=== PATIENT | female | born 1965 | race Caucasian/White ===

== ENCOUNTER 2020-11-28 15:54 | Outpatient (REF) | payer MEDICARE, MEDICAID, SELFPAY ==
[2020-11-28 16:29] LABS: MANUAL DIFF FLAG NO
[2020-11-28 16:31] LABS: Basophils Absolute Auto 0.1 X10*3/uL (0.0-0.2); Basophils Percent Auto 0.9 % (0-2); Eosinophils Absolute Auto 0.3 X10*3/uL (0.0-0.4); Eosinophils Percent Auto 2.7 % (0-4); Hematocrit 44.3 % (37-47); Hemoglobin 14.8 g/dl (12.0-16.0); Imm Gran Abs Auto 0.04 X10*3/uL (0.00-0.03); Imm Gran Pct Auto 0.4 % (0.0-0.4); Lymphocytes Absolute Auto 2.5 X10*3/uL (1.2-4.9); Lymphocytes Percent Auto 26.8 % (20-40); Mean Corpuscular HGB Conc 33.4 g/dl (31.0-35.0); Mean Corpuscular Volume 92.9 fL (80-98); Mean Platelet Volume 10.3 fL (9.4-12.3); Monocytes Absolute Auto 0.8 X10*3/uL (0.1-1.2); Monocytes Percent Auto 8.2 % (2-11); Neutrophils Absolute Auto 5.7 X10*3/uL (2.0-8.3); Platelet Count 255 X10*3/uL (160-400); Red Blood Count 4.77 X10*6/uL (4.20-5.50); Red Cell Distribution Width 13.3 % (11.0-16.0); White Blood Count 9.3 X10*3/uL (4.8-10.8)
[2020-11-28 17:20] LABS: Erythrocyte Sedimentation Rate 10 MM/HR (0-20)
[2020-11-29 23:26] LABS: Anti Nuclear Antibody Screen POSITIVE (NEGATIVE)
[2020-12-01 04:17] LABS: Cardiolipin IgG Ab <14 GPL; Cardiolipin IgM Ab 18 MPL
== END 2020-11-28 15:55 | disposition home or self-care (01) ==
LOC: HO.LAB 15:54
PROVIDERS: PCP Pediatrics; Visit Provider Psychiatry & Neurology Neurology
DX: G43.709 Chronic migraine without aura, not intractable, without status migrainosus (principal)
CPT/HCPCS: 36415; 85025; 85652; 86038; 86039; 86147

== ENCOUNTER 2021-06-12 12:57 | Outpatient (REF) | payer MEDICARE, MEDICAID, SELFPAY ==
--- NOTE | ~2021-06-12 | MR_ITS ---
EXAMINATION: MR BRAIN WITHOUT AND WITH CONTRAST CLINICAL INFORMATION: Memory loss with falls. Worsening symptoms. COMPARISON: MRI dated 01/14/2017. TECHNIQUE: Multiplanar, multisequence imaging of the brain was performed before and after the intravenous administration of 7 mL of Gadavist. FINDINGS: No diffusion abnormalities are identified to suggest an acute infarct. The ventricles are normal in size. No mass effect or midline shift is seen. Minimal scattered subcentimeter foci of T2 hyperintense signal change in the cerebral white matter are stable. No extra-axial fluid collections are seen. The brainstem and cerebellum are normal. On postcontrast imaging, there is no abnormal parenchymal or leptomeningeal enhancement. The craniovertebral junction, marrow signal, and midline structures are normal. The major intracranial flow voids at the level of the [place] of [place] are preserved. 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 The dural venous sinus flow voids are maintained. The mastoid air cells and paranasal sinuses are well aerated. MR/MR head/brain wo/w con IMPRESSION: No acute process. Stable minimal white matter signal changes. No abnormal enhancement.
--- NOTE | ~2021-06-12 | XR_ITS ---
EXAMINATION: X-RAY PRE-MRI SCREENING CLINICAL INFORMATION: Question retained leads of implant prior to MRI COMPARISON: Lumbar spine x-ray October 2017 TECHNIQUE: Supine view of the abdomen and pelvis FINDINGS: No retained leads in the abdomen or pelvis are seen. There are surgical clips in the right upper quadrant and in the pelvis that appear unchanged from lumbar spine x-ray October 2017. The bowel gas pattern is normal. There is no free air. There are no calcifications. There are degenerative changes at the hip joints. XR/XR pre mri screening IMPRESSION: No lead is seen in the abdomen or pelvis.
--- NOTE | ~2021-06-12 | MR_ITS ---
EXAMINATION: MR CERVICAL SPINE WITHOUT AND WITH CONTRAST CLINICAL INFORMATION: MS. COMPARISON: Cervical spine MRI 11/06/2009. TECHNIQUE: MRI of the cervical spine was performed with routine sequences without and with intravenous contrast. A total of 7 ml of Gadavist was intravenously administered. FINDINGS: Allowing for motion artifact the cervical cord signal appears normal. No definite demyelinating plaques are seen. The upper thoracic cord signal appears normal. There is no abnormal intrathecal enhancement. The cervical vertebral bodies maintain normal heights and alignment. There is no significant disc height loss. At C5-C6 there is mild left neural foraminal stenosis related to uncovertebral hypertrophy. At C6-C7 there is disc bulging with broad-based left foraminal protrusion resulting in progressive severe left-sided neural foraminal stenosis and mild spinal canal stenosis with flattening of the left ventral cord. The remainder of the cervical levels are within normal limits. No acute intracranial abnormality is seen. The extraspinal soft tissues appear normal. MR/MR cervical spine wo/w con IMPRESSION: No definite demyelinating plaques identified within the cervical or upper thoracic cord. No abnormal enhancement. At C5-C6 there is mild left neural foraminal stenosis. At C6-C7 there is severe left-sided neural foraminal stenosis and mild spinal canal stenosis.
== END 2021-06-12 12:58 | disposition home or self-care (01) ==
LOC: HO.MRI 12:57
PROVIDERS: PCP Pediatrics; Visit Provider Psychiatry & Neurology Neurology
DX: G35 Multiple sclerosis (principal)
CPT/HCPCS: 70553; 72156

== ENCOUNTER 2022-09-09 13:56 | Outpatient (REF) | payer MEDICARE, MEDICAID, SELFPAY ==
[2022-09-09 14:07] LABS: MANUAL DIFF FLAG NO
[2022-09-09 14:16] LABS: Basophils Absolute Auto 0.1 X10*3/uL (0.0-0.2); Basophils Percent Auto 0.8 % (0-2); Eosinophils Absolute Auto 0.3 X10*3/uL (0.0-0.4); Eosinophils Percent Auto 2.4 % (0-4); Hematocrit 43.7 % (37.0-47.0); Hemoglobin 14.5 g/dl (12.0-16.0); Imm Gran Abs Auto 0.03 X10*3/uL (0.00-0.03); Imm Gran Pct Auto 0.3 % (0.0-0.4); Lymphocytes Absolute Auto 2.7 X10*3/uL (1.2-4.9); Lymphocytes Percent Auto 25.8 % (20-40); Mean Corpuscular HGB Conc 33.2 g/dl (31.0-35.0); Mean Corpuscular Hemoglobin 30.7 pg (27.0-33.0); Mean Corpuscular Volume 92.6 fL (80.0-98.0); Mean Platelet Volume 10.2 fL (9.4-12.3); Monocytes Percent Auto 9.3 % (2-11); Neutrophils Absolute Auto 6.5 x10*3/uL (2.0-8.3); Neutrophils Percent Auto 61.4 % (45-73); Platelet Count 270 X10*3/uL (160-400); Red Blood Count 4.72 X10*6/uL (4.20-5.50); Red Cell Distribution Width 13.4 % (11.0-16.0); White Blood Count 10.6 X10*3/uL (4.8-10.8)
== END 2022-09-09 13:57 | disposition home or self-care (01) ==
LOC: HO.LAB 13:56
PROVIDERS: PCP Pediatrics; Visit Provider Psychiatry & Neurology Neurology
DX: G43.709 Chronic migraine without aura, not intractable, without status migrainosus (principal)
CPT/HCPCS: 36415; 85025

== ENCOUNTER 2024-10-22 12:48 | Outpatient (REF) | payer MEDICARE, MEDICAID, SELFPAY ==
--- NOTE | ~2024-10-22 | XR_ITS ---
EXAMINATION: XR BILATERAL HIPS WITH AP PELVIS CLINICAL INFORMATION: M25.559 - Pain in unspecified hip COMPARISON: None available. TECHNIQUE: AP and frog-leg lateral views of each hip were obtained. FINDINGS: Left Hip: No fracture or dislocation. Normal alignment. No bone lesion. Moderate degenerative arthritis of the left hip joint is present, with overriding acetabulum superiorly and posteriorly. There is axial and inferior joint space loss, with small subcapital osteophytes. Mild subchondral sclerosis of the acetabulum with subtle cystic changes. Femoral head is normal in contour without evidence of AVN. Mild enthesopathy of the greater trochanter. Right Hip: No fracture or dislocation. Normal alignment. No bone lesion. Moderate degenerative arthritis of the left hip joint is present, with overriding acetabulum superiorly and posteriorly. There is axial and inferior joint space loss, with small subcapital osteophytes. Mild subchondral sclerosis of the acetabulum with subtle cystic changes. Femoral head is normal in contour without evidence of AVN. Mild enthesopathy of the greater trochanter. Pelvis: There are mild degenerative changes in both SI joints. The pelvis is intact. No bone lesion. There are gluteal insertional enthesophytes. There are surgical clips in the central pelvis and overlying the L5-S1 facet joint. XR/XR hip YVETTE min 3V IMPRESSION: 1. No acute bony abnormalities. 2. 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 Electronically signed by: Miguel Burrell MD 10/26/2024 10:01 AM MALINI
--- OUTSIDE RECORDS SUMMARY | 2024-10-22 14:29 | XMS_ITS | Clinical Summary ---
Author Organization [facility] Address [phone] Formerly [facility] [place] [address] Care Team Providers Care Medical Center Director Name Role Phone Murray Livingston MD Primary [...] 11:33 AM EDT) HCV Ab Nonreactive Nonreactive [facility] Comment: (NOTE) Test performed by: ?[facility] ?[id number] [facility] ?[place] [address] Director: Amol Rockwell M.D., Ph.D.,Director of Laboratories SIGNAL TO CUT OFF 0.00 <1.00 ratio [facility] Comment: (NOTE) HCV antibody was Nonreactive. There is no laboratory evidence of HCV infection. In most cases, no further action is required. However, if recent HCV exposure is suspected, a test for HCV RNA (test code 12765) is suggested. For additional information please refer to http://education.NormOxys/faq/JHC55i8 (This link is being provided for informational/ educational purposes only.) Test performed by: ?[facility] ?[id number] [employer] ?[place], [place] Director: Amol Rockwell M.D., Ph.D.,Director of Laboratories Additional Testing Not indicated [facility] Comment: (NOTE) Test performed by: ?[facility] ?[id number] [facility] [employer] ?[place], [place] Director: Amol Rockwell M.D., Ph.D.,Director of Laboratories 07/02/2018 11:3 3 AM EDT 07/02/2018 12:34 PM EDT Gustavo Rivera MD LAB BLOOD ORDERABLES Performing Organization Address [facility] Co de Phone Number [address] * Hepatitis B surface antigen (07/02/2018 11:33 AM EDT) HBV Surface Ag Nonreactive Nonreactive [facility] Comment: (NOTE) Test performed by: ?[facility] ?[id number] [employer] ?[place], [place] Director: Amol Rockwell M.D., Ph.D.,Director of Laboratories CONFIRMATION REPORT SEE COMMENT [facility] Comment: (NOTE) Not required according to the current package insert. Test performed by: ?[facility] ?[id number] [employer] ?[place], [place] Director: Amol Rockwell M.D., Ph.D.,Director of Laboratories 07/02/2018 11:3 3 AM EDT 07/02/2018 12:34 PM EDT Gustavo Rivera MD LAB BLOOD ORDERABLES Performing Organization Address City/[facility]/ZIP Co de Phone Number [facility] [address] [place] [address], [facility] from Last 3 Months or Most Recently Relevant to Health Maintenance Care Teams Medical Center Director Relationship Specialty Start Date End Date Murray Livingston MD [address] [place] [address] PCP - General Internal Medicine 04/21/18 Additional Source Comments The information contained in this document represents components of the legal health record. It is not the complete legal health record.[facility]
--- OUTSIDE RECORDS SUMMARY | 2024-10-22 14:29 | XMS_ITS | Referral Summary ---
Author Organization [facility] Address [address] [id number] Care Team Providers Care Turning Machine Set Up Operator Name Role Phone Murray Livingston Primary Care Provider [phone] Encounters Date Type Department Care Team Description 10/08/[address] [address] Felix Prakash MD 09/27/2024 1:40 PM EST Office Visit 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); Lumbar radiculopathy 09/07/[address] [address] Felix Prakash MD 09/07/2024 1:15 PM EST Follow-Up [facility] [address] [address] Felix Prakash MD PVD (posterior vitreous detachment), bilateral (Primary Dx); Sjogren's syndrome with keratoconjunctivitis sicca (HCC); Keratoconjunctivitis sicca; Pseudophakia of both eyes; MGD (meibomian gland dysfunction) 08/06/2024 3:00 PM EST Follow-Up [address] [address] Megan Hoff MD History of keratoconjunctivitis sicca [...] Tyrvaya 0.03 mg/spray spray, metered, non-aerosol SMARTSI [place](s) Both Nares Twice Daily 4 Active doxycycline [...] (05/06/2023): 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 03/13 attempted implantation of stent unsuccessful. 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 [facility] 2007 recurrence of aneurism despite stable [...] Info) Description 11/01/2024 2:00 PM EST Follow-Up [facility] [address] [place] [address] First Officer: Michell Mcghee MD [address] [place] [address] 01/26/2025 1:15 PM EDT Clinical Support [address] [address] 01/26/2025 1:30 PM EDT Follow-Up [address] [address] Celsa Sanford MD [address] [place] [address] 03/08/2025 2:15 PM EDT Follow-Up [facility] [address] [address] Felix Prakash MD [address] [place] [address] Procedures * Due to [place] [employer] law, this organization might not be sharing [...] to Health Maintenance Results * Due to [place] [employer] law, this organization might not be sharing [...] Patient's understanding of procedure matches consent? Yes. [place] Protocol The procedure is not an emergent [...] procedure well. There were no complications. Result [facility] Felix Prakash MD OPHTH CLINIC PROCEDURES Final Re sult * Color Fundus Photography - OU - Both Eyes (09/07/2024 2:17 PM EST) Narrative OPHTHALMOLOGY IMAGING - 09/07/2024 2:17 PM EST Normal disc and macula in both eyes No signs of tears or detachments Syneresis in left eye Result [facility] Feilx Prakash MD OPHTH PHOTOGRAPHY Final Result OPHTHALMOLOGY [...] Patient's understanding of procedure matches consent? Yes. [place] Protocol The procedure is not an emergent [...] of removal Removed without complication 0.4mm placed [place] [id number] us Megan Hoff MD OPH CLINIC PROCEDURES [...] Recently Relevant to Health Maintenance Insurance MEDICARE [facility] Advance Directives Documents on File Type Date Recorded Patient Kitchen Designer Expl anation Health Care Proxy 03/08/2024 3:27 PM 2023 Care Teams Turning Machine Set Up Operator Relationship Specialty Start Date End Date Murray Livingston PCP - General Internal Medicine 02/24/23
--- OUTSIDE RECORDS SUMMARY | 2024-10-22 14:29 | XMS_ITS | Encounter Summary ---
Author Organization [facility] Address [address] [place] [address] Care Team Providers Care Respiratory Scientist Name Role Phone Bree Livingston MD Primary Care Provider [phone] Encounter Details Date Type Department Care Team (Late st Contact Info) Description 06/22/2024 2:43 PM EDT Hospital Encounter TH HISTORIC ENCOUNTERS EASTERN CONVERSION ONLY Jacky Ramsey MD [address] [place] [phone] Social History Tobacco Use Types Packs/Day [...] care for your loved ones. For example, summer child caregiver or elderly care for an older adult? [...] PM EDT Office Visit Gastroenterology - [address] [phone] Dorcas Lozoya PA [address] [address] 02/22/2025 2:30 PM EDT Office Visit [facility] Hematology Oncology [address] [place] [phone] Jacky Ramsey MD [address] [place] [address] 03/02/2025 3:50 PM EDT Appointment Radiology Department - [address] [phone] documented as of this encounter Procedures Procedure Name Priority Date/Time Associated Diagnosis Comments ..MISCELLANEOUS REFERENCE LAB TEST 06/22/2024 documented in this encounter Results * Miscellaneous reference lab test (06/22/2024) us Provider Onbase LAB BLOOD ORDERABLES Final Re sult documented in this encounter Visit Diagnoses Not on filedocumented in this encounter Care Teams Respiratory Scientist Relationship Specialty Start Date End Date Bree Livingston MD [address] [place] [address] PCP - General 06/01/03 documented as of this encounter
--- OUTSIDE RECORDS SUMMARY | 2024-10-22 14:29 | XMS_ITS | Encounter Summary ---
Author Organization [facility] Address [address] [place] [address] Care Team Providers Care Supervisor Sewing Department Name Role Phone Bree Livingston MD Primary Care Provider [phone] Reason for Visit * Reason Comments Abdominal Pain * Consultation (Routine) - Closed Specialty Diagnoses / Procedures Referred By Feroz borrero Referred To Contact Gastroenterology Diagnoses Epigastric pain Family history of pancreatic cancer Marilu Lang PA [address] [place] [address] Phone: tel: fax: Gastroenterology - [address] [place] [phone] Phone: tel: fax: Referral ID Status Reason Start Date Expiration Date V isits Requested Visits Authorized [id number] Closed Specialty Services Required 08/13/2024 08/13/2025 1 1 Encounter Details Date Type Department Care Team (Latest Contact Info) Description 10/13/2024 2:20 PM EST Office Visit Gastroenterology - 299 [address] [facility] [address] [address] Dorcas Lozoya PA [address] [address] Pharyngoesophageal dysphagia (Primary Dx); Epigastric [...] for your loved ones. For example, child daycare worker or elderly care for an older adult? [...] Per pt, up to date. Colonoscopy at [place]. Will try to obtain records. Did not [...] loss or vomiting. She is seeing a per assessment nurse next month for leukocytosis. LABS/IMAGING: Component Ref [...] NRBC Absolute <0.10 K/mcL 0.00 Resulting Agency [facility] Component Ref Range & Units 3 wk [...] COMMENT: diverticulosis OTHER SURGICAL HISTORY 2002 PROCEDURE: MO COLECTOMY PARTIAL W/ANASTOMOSIS; COMMENT: Diverticulitis OTHER SURGICAL HISTORY 1969 PROCEDURE: MO EXCISION SYNOVIAL CYST POPLITEAL SPACE OTHER SURGICAL HISTORY 2004 PROCEDURE: MO RESCJ OVARIAN/TUBAL/PERITONEAL MALIGNANCY W/BSO OTHER SURGICAL HISTORY 2007 PROCEDURE: HISTORICAL SUBTOTAL THYROIDECTOMY; COMMENT: Ronnie--Right lobe and isthmus OTHER SURGICAL HISTORY 06/21/2009 PROCEDURE: CHG RADIOLOGIC EXAM COLON DOUBLE CONTRAST STUDY; COMMENT: diverticulosis, no obstruction. OTHER SURGICAL HISTORY 04/2016 PROCEDURE: MO LAPAROSCOPY SLING OPERATION STRESS INCONT UPPER GASTROINTESTINAL ENDOSCOPY 08/08/2016 PROCEDURE: MO UPPER GI ENDOSCOPY PERFORMED; COMMENT: Normal upper [...] Upcoming Encounters Date Type Department Care Team ([facility] st Contact Info) Description 11/11/2024 1:20 PM EDT Office Visit Gastroenterology - 299 [facility] 299 [facility] [address] [place] [phone] Dorcas Lozoya PA 299 [facility] [address] [place] [address] 02/22/2025 2:30 PM EDT Office Visit [facility] Hematology Oncology [address] [place] [phone] Jacky Ramsey MD [address] [place] [phone] 03/02/2025 3:50 PM EDT Appointment Radiology Department - [address] [phone] documented as of this encounter Visit Diagnoses [...] documented as of this encounter Care Teams Supervisor Sewing Department Relationship Specialty Start Date End Date Bree Livingston MD [address] [place] [address] PCP - General 06/01/03 documented as of this encounter
--- OUTSIDE RECORDS SUMMARY | 2024-10-22 14:29 | XMS_ITS | Clinical Summary ---
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); Lumbar radiculopathy 09/07/2024 1:15 PM EST Follow-Up [address] [address] Felix Prakash MD PVD (posterior vitreous detachment), bilateral (Primary Dx); Sjogren's syndrome with keratoconjunctivitis sicca (HCC); Keratoconjunctivitis sicca; Pseudophakia of both eyes; MGD (meibomian gland dysfunction) 09/07/[address] [address] Felix Prakash MD 08/06/2024 3:00 PM EST Follow-Up [address] [address] Megan Hoff MD History of keratoconjunctivitis sicca [...] Info) Description 11/01/2024 2:00 PM EST Follow-Up [facility] [address] [place] [address] Carton Folder: Michell Mcghee MD [address] [place] [address] 01/26/2025 1:15 PM EDT Clinical Support [facility] [address] [address] 01/26/2025 1:30 PM EDT Follow-Up [address] [address] Celsa Sanford MD [address] [place] [address] 03/08/2025 2:15 PM EDT Follow-Up [facility] [address] [address] Felix Prakash MD [address] [place] [address] Health Maintenance Due Date Last Done Comments [...] Additional history exists Procedures * Due to [place] state law, this organization might not be [...] to Health Maintenance Results * Due to [place] state law, this organization might not be [...] Patient's understanding of procedure matches consent? Yes. [place] Protocol The procedure is not an emergent [...] OPHTH PHOTOGRAPHY Final Result Performing Organization Address [facility]/ZIP Co de Phone Number OPHTHALMOLOGY IMAGING [...] Patient's understanding of procedure matches consent? Yes. [place] Protocol The procedure is not an emergent [...] of removal Removed without complication 0.4mm placed [place] plug [place] [id number] Megan Hoff MD OPHTH CLINIC PROCEDURES Ed ited Result - Final * Hepatitis C Antibody w/Reflex to HCV RNA, Quantitative PCR (04/22/2023 9:45 AM EDT) Hepatitis C Antibody Interpretation NONREACTIVE NONREACTIVE . CONVERSION DATA LAB 04/22/2023 9:45 AM EDT Result [facility] Kiesha Jewell MD LAB BLOOD ORDERABLES Final Resu lt CONVERSION DATA LAB from Last 3 Months or Most Recently Relevant to Health Maintenance Insurance MEDICARE [facility] Advance Directives Documents on File Type Date Recorded Patient Experimental Electronics Developer Expl [facility] Health Care Proxy 03/08/2024 3:27 PM 2023 Care Teams Drain Tile Press Operator Relationship Specialty Start Date End Date Murray Livingston PCP - General Internal Medicine 02/24/23
--- OUTSIDE RECORDS SUMMARY | 2024-10-22 14:29 | XMS_ITS | Encounter Summary ---
Author Organization [facility] Address [address] [place] [address] Care Team Providers Care Stitch Wheeler Name Role Phone Murray Livingston Primary Care Provider [phone] Reason for Visit * Reason Onset Date Comments PAC Appt Request - New 05/07/2023 Encounter Details Date Type Department Care Team (Late st Contact Info) Description 05/07/2023 Telephone [facility] [address] [place] [address] Telephone Intake, Staff PAC Appt Request - [...] Info) Description 11/01/2024 2:00 PM EST Follow-Up [facility] Clinic [address] [place] [address] Generalist: Michell Mcghee MD [address] [place] [address] 01/26/2025 1:15 PM EDT Clinical Support [facility] Eye [address] [address] 01/26/2025 1:30 PM EDT Follow-Up [address] [address] Celsa Sanford MD [address] [place] [address] 03/08/2025 2:15 PM EDT Follow-Up [address] [address] Felix Prakash MD [address] [place] [phone] documented as of this encounter Visit Diagnoses Not on filedocumented in this encounter Care Teams Stitch Wheeler Relationship Specialty Start Date End Date Murray Livingston PCP - General Internal Medicine 02/24/23 documented as of this encounter
--- OUTSIDE RECORDS SUMMARY | 2024-10-22 14:29 | XMS_ITS ---
Author Organization [facility] Address [address] [place] [address] Phone Care Team Providers Care Services Program Manager Name Role Phone Bree Livingston MD Primary Care Provider [phone] Teacher'S Assistant Care Management Status:Closed (Closed) Start date:09/27/2024 Enrollment reason:Identified using claims or encounter data End date:09/28/2024 Close reason:Not interested at this time Overview BH assignment - PHQ positive Continued Care and Services Coordination
--- OUTSIDE RECORDS SUMMARY | 2024-10-22 14:29 | XMS_ITS | Encounter Summary ---
Author Organization [facility] Address [address] [place] [address] Care Team Providers Care Video Specialist Name Role Phone Murray Livingston Primary Care Provider [phone] Reason for Visit * Reason Comments Med Refill Encounter Details Date Type Department Care Team (Late st Contact Info) Description 10/08/2024 Refill [facility] Eye [address] [address] Felix Prakash MD [address] [place] [address] Social History Tobacco Use Types Packs/Day Years [...] Info) Description 11/01/2024 2:00 PM EST Follow-Up [facility] [address] [place] [phone] Hand Winder: Michell Mcghee MD [address] [place] [address] 01/26/2025 1:15 PM EDT Clinical Support [address] [address] 01/26/2025 1:30 PM EDT Follow-Up [address] [address] Celsa Sanford MD [address] [place] [address] 03/08/2025 2:15 PM EDT Follow-Up [address] [address] Felix Prakash MD [address] [place] [address] documented as of this encounter Visit Diagnoses Not on filedocumented in this encounter Care Teams Video Specialist Relationship Specialty Start Date End Date Murray Livingston PCP - General Internal Medicine 02/24/23 documented as of this encounter
--- OUTSIDE RECORDS SUMMARY | 2024-10-22 14:29 | XMS_ITS | Encounter Summary ---
Author Organization [facility] Address [address] [place] [address] Care Team Providers Care Technical Service Engineer Name Role Phone Bree [place] MD Primary Care Provider [phone] Reason for Referral * Consultation (Routine) - Authorized Specialty Diagnoses / Procedures Referred By Contac t Referred To Contact Neurosurgery Diagnoses Bilateral hip pain Emelina Nolan PA [address] [place] [address] Phone: tel: fax: Lorne Sandra MD [address] [place] [address] Phone: tel: fax: Referral ID Status Reason Start Date Expiration Date Visits Requested Visits Authorized [id number] Authorized Consult and Treat 09/20/2024 09/20/2025 1 1 Reason for Visit * Reason Comments Annual Exam Encounter Details Date Type Department Care Team (Late st Contact Info) Description 09/20/2024 2:30 PM EST Office Visit Adult Medicine - [place] [address] [place] [address] Emelina Nolan PA [address] [place], [place] Physical exam, routine (Primary Dx); Bilateral [...] care for your loved ones. For example, childhood teacher or elderly care for an older [...] twice last week, she had told her digital x ray service engineer that she was having leg pain and was told to be evaluated for DVT there was no sign of DVT on ultrasound. She returned to the ED ER to have a CT chest scan done to rule out clot, there were no findings. Reports she follows up with her digital x ray service engineer for bronchiectasis ROS: GENERAL: Positive for fatigue [...] : Negative for dysuria, frequency, and incontinence AIRPLANE TUBE BUILDER: Negative for abnormal vaginal bleeding and abnormal [...] EDT Office Visit Gastroenterology - [address] [address] Dorcas Lozoya PA [address] [address] 02/22/2025 2:30 PM EDT Office Visit [facility] Hematology Oncology [address] [place] [phone] Jacky Ramsey MD [address] [place] [phone] 03/02/2025 3:50 PM EDT Appointment Radiology Department [address] [address] Scheduled Referrals Name Type Priority Associated Diagnoses Order Schedule Ambulatory referral to Neurosurgery Outpatient Referral Routine Bilateral hip pain 1 Occurrences starting 09/20/2024 until 09/20/2025 documented as of this encounter Results * (ABNORMAL) Comprehensive metabolic panel (09/20/2024 3:26 PM EST) Sodium 138 133 - 145 mmol/L LAB CHEMISTRY METHOD 09/20/2024 6:00 PM EST [facility] Potassium 3.9 3.5 - 5.5 mmol/L LAB CHEMISTRY METHOD 09/20/2024 6:[address] [facility] Chloride 106 96 - 110 mmol/L LAB CHEMISTRY METHOD 09/20/2024 6:[address] [facility] CO2 26 21 - 32 mmol/L LAB CHEMISTRY METHOD 09/20/2024 6:[address] [facility] Anion Gap 6 3 - 11 LAB CHEMISTRY METHOD 09/20/2024 6:[address] [facility] Glucose 143(H) 70 - 100 mg/dL LAB CHEMISTRY METHOD 09/20/2024 6:[address] [facility] BUN 18 5 - 25 mg/dL LAB CHEMISTRY METHOD 09/20/2024 6:[address] [facility] Creatinine 1.05 0.50 - 1.10 mg/dL LAB CHEMISTRY METHOD 09/20/2024 6:[address] [facility] eGFR 61 >=60 mL/min/1. 73m2 LAB CHEMISTRY METHOD 09/20/2024 6:[address] [facility] Comment:Calculation based on the??Chronic Kidney Disease Epidemiology Collaboration (CKD-EPI) equation refit??without adjustment for race. BUN/Creatinine Ratio 17.1 LAB CHEMISTRY METHOD 09/20/2024 6:[address] [facility] Calcium 9.0 8.5 - 10.5 mg/dL LAB CHEMISTRY METHOD 09/20/2024 6:[address] [facility] AST (SGOT) 17 10 - 42 unit/L LAB CHEMISTRY METHOD 09/20/2024 6:[address] [facility] ALT (SGPT) 22 10 - 60 unit/L LAB CHEMISTRY METHOD 09/20/2024 6:[address] [facility] Alkaline Phosphatase 105 42 - 121 unit/L LAB CHEMISTRY METHOD 09/20/2024 6:[address] [facility] Total Protein 6.8 6.0 - 8.0 g/dL LAB CHEMISTRY METHOD 09/20/2024 6:00 PM EST [facility] Albumin 3.7 3.2 - 5.0 g/dL LAB CHEMISTRY METHOD 09/20/2024 6:[address] [facility] Total Bilirubin 0.3 0.0 - 1.4 mg/dL LAB CHEMISTRY METHOD 09/20/2024 6:00 PM EST [facility] Blood Venous blood specimen / Unknown Venipuncture / Unknown 09/20/2024 3:26 PM EST 09/20/2024 3:26 PM EST Emelina FLOYD LAB BLOOD ORDERABLES Final Resul t Performing Organization Address [facility]/ZIP Co de Phone Number [facility] [address] [place] [address], [place] [phone] * Hemoglobin A1c (09/20/2024 3:26 PM EST) Hemoglobin A1C 6.0 <6.5 % LAB CHEMISTRY METHOD 09/20/2024 9:[address] [facility] Mean Bld Glu Estim. 126 mg/dL LAB CHEMISTRY METHOD 09/20/2024 9:[address] [facility] Blood Venous blood specimen / Unknown Venipuncture / Unknown 09/20/2024 3:26 PM EST 09/20/2024 3:26 PM EST Emelina FLOYD LAB BLOOD ORDERABLES Final Resul t Performing Organization Address City/[facility]/ZIP Co de Phone Number [facility] [address] [place] [address], [place] [phone] * (ABNORMAL) Complete blood count (09/20/2024 3:26 PM EST) WBC 17.5(H) 4.8 - 10.8 K/mcL LAB HEMETOLOGY METHOD 09/20/2024 5:53 PM EST [facility] RBC 4.90(H) 3.80 - 4.80 M/mcL LAB HEMETOLOGY METHOD 09/20/2024 5:[address] [facility] Hemoglobin 14.7 11.5 - 16.0 g/dL LAB HEMETOLOGY METHOD 09/20/2024 5:[address] [facility] Hematocrit 44.6 35.0 - 47.0 % LAB HEMETOLOGY METHOD 09/20/2024 5:[address] [facility] MCV 90.8 79.0 - 98.0 FL LAB HEMETOLOGY METHOD 09/20/2024 5:[address] [facility] MCH 29.9 27.0 - 32.0 pcg LAB HEMETOLOGY METHOD 09/20/2024 5:[address] [facility] MCHC 33.0 32.0 - 37.0 g/dL LAB HEMETOLOGY METHOD 09/20/2024 5:[address] [facility] RDW 14.3 11.0 - 15.0 % LAB HEMETOLOGY METHOD 09/20/2024 5:[address] [facility] Platelets 339 130 - 400 K/mcL LAB HEMETOLOGY METHOD 09/20/2024 5:[address] [facility] MPV 10.6 7.0 - 11.0 FL LAB HEMETOLOGY METHOD 09/20/2024 5:[address] [facility] NRBC 0.0 <1.0 % LAB HEMETOLOGY METHOD 09/20/2024 5:[address] [facility] NRBC Absolute 0.00 <0.10 K/mcL LAB HEMETOLOGY METHOD 09/20/2024 5:[address] [facility] Blood Venous blood specimen / Unknown Venipuncture / Unknown 09/20/2024 3:26 PM EST 09/20/2024 3:26 PM EST us Emelina Advanova [place] LAB BLOOD ORDERABLES Final Resul t Performing Organization Address [facility]/ZIP Co de Phone Number [facility] [address] [place] [address], [place] [phone] * (ABNORMAL) Thyroid stimulating hormone with reflex to free t4 and free t3 (09/20/2024 3:26 PM EST) TSH 4.62(H) 0.40 - 4.00 mcIU/mL LAB CHEMISTRY METHOD 09/20/2024 6:10 PM EST [facility] Blood Venous blood specimen / Unknown Venipuncture / Unknown 09/20/2024 3:26 PM EST 09/20/2024 3:26 PM EST Emelina Advanova [place] LAB BLOOD ORDERABLES Final Resul t Performing Organization Address [facility] Co de Phone Number [facility] [address] [place] [address], [place] [phone] documented in this encounter Visit Diagnoses Diagnosis [...] documented as of this encounter Care Teams Technical Service Engineer Relationship Specialty Start Date End Date Bree [place] MD [address] [place] [address] PCP - General 06/01/03 documented as of this encounter
--- OUTSIDE RECORDS SUMMARY | 2024-10-22 14:29 | XMS_ITS | Encounter Summary ---
Author Organization [facility] Address [address] [place] [address] Care Team Providers Care Electrical Controls Designer Name Role Phone Bree [place] MD Primary Care Provider [phone] Reason for Visit * Hospital - Outpatient (Routine) - Authorized Specialty Diagnoses / Procedures Referred By Feroz borrero Referred To Contact Gastroenterology Diagnoses Dysphagia RUQ pain Epigastric pain Procedures EGD Dilation; Anesthesia - MAC; [facility] ENDOSCOPY Luis Fu MD [address] [address] Phone: tel: fax: [facility] Endoscopy [address] [place] [address] Phone: tel: Referral ID Status Reason Start Date Expiration Date V isits Requested Visits Authorized [id number] Authorized 10/13/2024 10/13/2025 1 1 Encounter Details Date Type Department Care Team (Late st Contact Info) Description 10/19/2024 9:30 AM EST Hospital Encounter [facility] Endoscopy [address] [place] [phone] Luis Fu MD [address] [address] Rachell Haley CRNA [address] [place] [address] Blas Garvey MD [address] [place] [phone] Social History Tobacco Use Types Packs/Day Years [...] care for your loved ones. For example, childcare provider or elderly care for an older adult? [...] 05/2006 DX:Aneurysm of unspecified site (HCC); COMMENT: [facility], [facility], not able to clip Cervical cancer (CMS/HCC) DX:Cervical cancer (HCC); COMMENT: in situ Depressive disorder, not elsewhere classified DX:Depressive disorder, not elsewhere classified; [facility] Diverticulitis DX:Diverticulitis; COMMENT: s/p colon resection Diverticulosis [...] COMMENT: diverticulosis OTHER SURGICAL HISTORY 2002 PROCEDURE: SC COLECTOMY PARTIAL W/ANASTOMOSIS; COMMENT: Diverticulitis OTHER SURGICAL HISTORY 1969 PROCEDURE: SC EXCISION SYNOVIAL CYST POPLITEAL SPACE OTHER SURGICAL HISTORY 2004 PROCEDURE: SC RESCJ OVARIAN/TUBAL/PERITONEAL MALIGNANCY W/BSO OTHER SURGICAL HISTORY 2007 PROCEDURE: HISTORICAL SUBTOTAL THYROIDECTOMY; COMMENT: Ronnie--Right lobe and isthmus OTHER SURGICAL HISTORY 06/21/2009 PROCEDURE: CHG RADIOLOGIC EXAM COLON DOUBLE CONTRAST STUDY; COMMENT: diverticulosis, no obstruction. OTHER SURGICAL HISTORY 04/2016 PROCEDURE: SC LAPAROSCOPY SLING OPERATION STRESS INCONT UPPER GASTROINTESTINAL ENDOSCOPY 08/08/2016 PROCEDURE: SC UPPER GI ENDOSCOPY PERFORMED; COMMENT: Normal upper [...] PM EDT Office Visit Gastroenterology - [address] [phone] Dorcas Lozoya PA [address] [address] 02/22/2025 2:30 PM EDT Office Visit [facility] Hematology Oncology [address] [place] [phone] Jacky Ramsey MD [address] [place] [phone] 03/02/2025 3:50 PM EDT Appointment Radiology Department - [address] [address] Scheduled Orders Name Type Priority Associated Diagnoses Orde r Schedule EGD Dilation; Anesthesia - MAC; [facility] ENDOSCOPY Endoscopy Routine Dysphagia RUQ pain Epigastric pain Expected: 10/19/2024, Expires: 10/13/2025 documented as of this encounter Visit Diagnoses Not on filedocumented in this encounter Additional Health Concerns Assessment Noted Time PHQ-9 Depression Total Score: 20 025 2:16 PM EST documented as of this encounter Care Teams Electrical Controls Designer Relationship Specialty Start Date End Date Bree [place] MD [address] [place] [address] PCP - General 06/01/03 documented as of this encounter
--- OUTSIDE RECORDS SUMMARY | 2024-10-22 14:29 | XMS_ITS | Encounter Summary ---
Author Organization [facility] Address [address] [place] [address] Care Team Providers Care Health Care Legal Assistant Name Role Phone Bree [place] MD Primary Care Provider [phone] Reason for Visit * Reason Comments Follow-up * Consultation (Routine) - Authorized Specialty Diagnoses / Procedures Referred By Contac t Referred To Contact Hematology / Hematology and Oncology Diagnoses Neutrophilia Emelina Nolan PA [address] [place] [address] Phone: tel: fax: [facility] Hematology Oncology [address] [place] [address] Phone: tel: fax: Referral ID Status Reason Start Date Expiration Date Visits Requested Visits Authorized [id number] Authorized Specialty Services Required 09/21/2024 09/21/2025 1 1 Encounter Details Date Type Department Care Team (Late st Contact Info) Description 10/21/2024 3:30 PM EST Office Visit [facility] Hematology Oncology [address] [place] [phone] Jacky Ramsey MD [address] [place] [address] Neutrophilia Social History Tobacco Use [...] care for your loved ones. For example, childbirth educator or elderly care for an older adult? [...] PM EDT Office Visit Gastroenterology - 299 [facility] 299 [facility] [address] [place] [phone] Dorcas Lozoya PA 299 [facility] [address] [place] [address] 02/22/2025 2:30 PM EDT Office Visit [facility] Hematology Oncology [address] [place] [phone] Jacky Ramsey MD [address] [place] [phone] 03/02/2025 3:50 PM EDT Appointment Radiology Department - [address] [address] documented as of this encounter Visit Diagnoses Diagnosis Neutrophilia Other specified disease of white blood cells documented in this encounter Orders Outpatient Referral Count Last Ordered Date Fir st Ordered Date AMB REFERRAL TO HEMATOLOGY 1 10/21/2024 documented in this encounter Additional Health Concerns Assessment Noted Time PHQ-9 Depression Total Score: 20 025 2:16 PM EST documented as of this encounter Care Teams Health Care Legal Assistant Relationship Specialty Start Date End Date Bree [place] MD [address] [place] [address] PCP - General 06/01/03 documented as of this encounter
--- OUTSIDE RECORDS SUMMARY | 2024-10-22 14:29 | XMS_ITS | Clinical Summary ---
Author Organization [facility] Address [address] [id number] Care Team Providers Care Respite Coordinator Name Role Phone Murray [place] MD Primary Care Provider [phone] Allergies Active Allergy Reactions Criticality Noted Date [...] age to complete this topic Care Teams Respite Coordinator Relationship Specialty Start Date End Date Murray [place] MD PCP - General Lathe Hand 05/15/22
--- OUTSIDE RECORDS SUMMARY | 2024-10-22 14:29 | XMS_ITS | Encounter Summary ---
Author Organization [facility] Address [address] [place] [address] Care Team Providers Care Tractor Trailer Truck Driver Name Role Phone Bree [place] MD Primary Care Provider [phone] Encounter Details Date Type Department Care Team (Late st Contact Info) Description 10/19/2024 11:59 PM EST Anesthesia Event [facility] Endoscopy [address] [place] [address] Rachell Haley, JAQUI [address] [place] [address] Anesthesia Record Procedure Summary Procedure Name Responsible [...] loved ones. For example, child day care center worker or elderly care for an older [...] - [address] [place] [phone] Dorcas Lozoya PA [address] [phone] 02/22/2025 2:30 PM EDT Office Visit [facility] Hematology Oncology [address] [place] [phone] Jacky Ramsey MD [address] [place] [address] 03/02/2025 3:50 PM EDT Appointment Radiology Department - [address] [address] documented as of this encounter Visit Diagnoses Not on filedocumented in this encounter Additional Health Concerns Assessment Noted Time PHQ-9 Depression Total Score: 20 025 2:16 PM EST documented as of this encounter Care Teams Tractor Trailer Truck Driver Relationship Specialty Start Date End Date Bree [place] MD [address] [place] [address] PCP - General 06/01/03 documented as of this encounter
--- OUTSIDE RECORDS SUMMARY | 2024-10-22 14:29 | XMS_ITS | Encounter Summary ---
Author Organization [facility] Address [address] [place] [address] Care Team Providers Care Chipping Machine Operator Name Role Phone Murray [place] Primary Care Provider [phone] Reason for Referral * Physical Therapy (Routine) - Pending Review Specialty Diagnoses / Procedures Referred By Delilahac t Referred To Contact Physical Therapy Diagnoses Intervertebral disc disorder with radiculopathy of lumbar region Ayo Cox MD [address] [place], [place] [phone] Phone: tel: fax: Referral ID Status Reason Start Date Expiration Date Visits Requested Visits Authorized [id number] Pending Review Specialty Services Required 09/27/2024 03/29/2026 6 6 Reason for Visit * Reason Comments Pain * Consultation (Routine) - Authorized Specialty Diagnoses / Procedures Referred By Feroz t Referred To Contact Orthopaedic Surgery Diagnoses B/L hip pain [facility] [address] [place] [address] Phone: tel: fax: Referral ID Status Reason Start Date Expiration Date V isits Requested Visits Authorized [id number] Authorized 08/17/2024 02/16/2026 6 6 Encounter Details Date Type Department Care Team (Latest Contact Info) Description 09/27/2024 1:40 PM EST Office Visit [facility] [address] [place], [place] [phone] Ayo Cox MD [address] [place] [address] Intervertebral disc disorder with radiculopathy of lumbar [...] Tyrvaya 0.03 mg/spray spray, metered, non-aerosol, SMARTSI Mercer(s) Both Nares Twice Daily, Disp: , Rfl: [...] Patient's understanding of procedure matches consent? Yes. [place] Protocol The procedure is not an emergent [...] care of this woman. Ayo Cox M.D. Database Marketing Analyst Of Anesthesiology & Pain Medicine [facility] documented in this encounter Plan of Treatment Upcoming Encounters Date Type Department Care Team (Late st Contact Info) Description 11/01/2024 2:00 PM EST Follow-Up [facility] [address] [place] [address] Content Development Specialist: Michell Mcghee MD [address] [place] [address] 01/26/2025 1:15 PM EDT Clinical Support [address] [address] 01/26/2025 1:30 PM EDT Follow-Up [address] [address] Celsa Sanford MD [address] [place] [phone] 03/08/2025 2:15 PM EDT Follow-Up [address] [address] Felix Prakash MD [address] [place] [phone] Scheduled Referrals Name Type Priority Associated Diagnoses Orde r Schedule Ambulatory referral to Physical Therapy Outpatient Referral Routine Intervertebral disc disorder with radiculopathy of lumbar region Expected: 09/27/2024, Expires: 03/27/2025 documented as of this encounter Visit Diagnoses Diagnosis Intervertebral disc disorder with radiculopathy of lumbar region- Primary Lumbar radiculopathy Thoracic or lumbosacral neuritis or radiculitis, unspecified documented in this encounter Care Teams Chipping Machine Operator Relationship Specialty Start Date End Date Murray [place] PCP - General Internal Medicine 02/24/23 documented as of this encounter
--- OUTSIDE RECORDS SUMMARY | 2024-10-22 14:30 | XMS_ITS | Clinical Summary ---
Author Organization [facility] [address] [facility] lding Address [address] [place] [address] Phone Care Team Providers Care Delivery Professional Name Role Phone Bree Livingston MD Primary Care Provider [phone] Allergies Active Allergy Reactions Criticality Noted Date [...] Description 10/21/2024 3:30 PM EST Office Visit [facility] Hematology Oncology [address] [place] [phone] Jacky Ramsey MD Neutrophilia 10/19/2024 11:59 PM EST Anesthesia Event [facility] Endoscopy [address] [place] [phone] Rachell Haley CRNA 10/19/2024 9:30 AM EST Hospital Encounter [facility] Endoscopy [address] [place] [phone] Luis Fu MD Chang, Ling, CRNA Spencer, Mark A, MD 10/13/2024 2:20 PM EST Office Visit Gastroenterology - [address] [phone] Dorcas Lozoya PA Pharyngoesophageal dysphagia (Primary Dx); Epigastric pain; Hiccups 09/20/2024 2:30 PM EST Office Visit [address] [phone] Emelina Nolan PA Physical exam, routine (Primary Dx); Bilateral hip pain; Sjogren's syndrome, with unspecified organ involvement (CMS/HCC); Moderately severe depression; Screening for diabetes mellitus (DM) 08/16/[address] [phone] Bree Livingston MD Lab Results 08/13/2024 2:00 PM EST Office Visit [address] [phone] Marilu Lang PA Epigastric pain (Primary Dx); Family history of pancreatic cancer; Right arm pain; Fall, initial encounter from Last 3 Months Immunizations Name Administration Dates Next Due Influenza trivalent, with pr eservative (Fluzone; Afluria) 6mo and older 05/21/2024 Culinary Agents SARS-CoV-2 COVID-19, mRNA, LNP-S, preservative free 01/09/2021,12/19/2020 Surgical History Surgery Date Site/Laterality Comments SECTION PROCEDURE: HISTORICAL DELIVERY OTHER SURGICAL HISTORY 2002 PROCEDURE: [place] COLECTOMY PARTIAL W/ANASTOMOSIS; COMMENT: Diverticulitis CHOLECYSTECTOMY PROCEDURE: HISTORICAL CHOLECYSTECTOMY OTHER SURGICAL HISTORY 1969 PROCEDURE: NH EXCISION SYNOVIAL CYST POPLITEAL SPACE OTHER SURGICAL HISTORY 2004 PROCEDURE: [place] RESCJ OVARIAN/TUBAL/PERITONEAL MALIGNANCY W/BSO OTHER SURGICAL HISTORY 2007 PROCEDURE: HISTORICAL SUBTOTAL THYROIDECTOMY; COMMENT: Ronnie--Right lobe and isthmus VAGINAL DELIVERY PROCEDURE: HISTORICAL VAGINAL DELIVERY; COMMENT: 1 OTHER SURGICAL HISTORY 06/21/2009 PROCEDURE: CHG RADIOLOGIC EXAM COLON DOUBLE CONTRAST STUDY; COMMENT: diverticulosis, no obstruction. COLONOSCOPY 11/16/2009 PROCEDURE: HISTORICAL COLONOSCOPY; COMMENT: diverticulosis OTHER SURGICAL HISTORY 04/2016 PROCEDURE: NH LAPAROSCOPY SLING OPERATION STRESS INCONT UPPER GASTROINTESTINAL ENDOSCOPY 08/08/2016 PROCEDURE: NH UPPER GI ENDOSCOPY PERFORMED; COMMENT: Normal upper [...] site (CMS/HCC) 05/2006 DX:Aneurysm of unspecified site ([facility]); COMMENT: [facility], coils, not able to clip Depressive disorder, not els ewhere classified DX:Depressive disorder, not elsewhere classified; COMMENT: Dr Gladys lindo Cervical cancer (CMS/HCC) DX:Cer vical cancer ([facility]); COMMENT: in situ Diverticulitis DX:Diverticuliti [...] PM EDT Office Visit Gastroenterology - 299 [facility] [address] [phone] Dorcas Lozoya PA [address] [phone] 02/22/2025 2:30 PM EDT Office Visit [facility] Hematology Oncology [address] [place] [phone] Jacky Ramsey MD [address] [place] [phone] 03/02/2025 3:50 PM EDT Appointment Radiology Department - [address] [phone] Health Maintenance Due Date Last Done Comments [...] LAB CHEMISTRY METHOD 09/20/2024 6:10 PM EST [facility] Blood Venous blood specimen / Unknown Venipuncture / Unknown 09/20/2024 3:26 PM EST 09/20/2024 3:26 PM EST us Emelina FLOYD LAB BLOOD ORDERABLES Final Resul t [facility] [address] [place] [address], [place] [phone] * Free thyroxine with reflex to free triiodothyronine (09/20/2024 3:26 PM EST) Pathologist [facility] Free T4 1.29 0.70 - 1.80 ng/dL LAB CHEMISTRY METHOD 09/20/2024 6:35 PM EST [facility] Blood Venous blood specimen / Unknown Venipuncture / Unknown 09/20/2024 3:26 PM EST 09/20/2024 3:26 PM EST Emelina FLOYD LAB BLOOD ORDERABLES Final Resul t [facility] [address] [place] [address], [place] [phone] * (ABNORMAL) Complete blood count (09/20/2024 3:26 PM EST) [facility] WBC 17.5(H) 4.8 - 10.8 K/mcL LAB HEMETOLOGY METHOD 09/20/2024 5:53 PM [facility] RBC 4.90(H) 3.80 - 4.80 M/mcL LAB HEMETOLOGY METHOD 09/20/2024 5:53 PM [facility] Hemoglobin 14.7 11.5 - 16.0 g/dL LAB HEMETOLOGY METHOD 09/20/2024 5:53 PM [facility] Hematocrit 44.6 35.0 - 47.0 % LAB HEMETOLOGY METHOD 09/20/2024 5:53 PM [facility] MCV 90.8 79.0 - 98.0 FL LAB HEMETOLOGY METHOD 09/20/2024 5:53 PM [facility] MCH 29.9 27.0 - 32.0 pcg LAB HEMETOLOGY METHOD 09/20/2024 5:53 PM EST [facility] MCHC 33.0 32.0 - 37.0 g/dL LAB HEMETOLOGY METHOD 09/20/2024 5:53 PM EST [facility] RDW 14.3 11.0 - 15.0 % LAB HEMETOLOGY METHOD 09/20/2024 5:53 PM [facility] Platelets 339 130 - 400 K/mcL LAB HEMETOLOGY METHOD 09/20/2024 5:53 PM [facility] MPV 10.6 7.0 - 11.0 FL LAB HEMETOLOGY METHOD 09/20/2024 5:53 PM [facility] NRBC 0.0 <1.0 % LAB HEMETOLOGY METHOD 09/20/2024 5:53 PM [facility] NRBC Absolute 0.00 <0.10 K/mcL LAB HEMETOLOGY METHOD 09/20/2024 5:53 PM [facility] Blood Venous blood specimen / Unknown Venipuncture / Unknown 09/20/2024 3:26 PM EST 09/20/2024 3:26 PM EST Emelina FLOYD LAB BLOOD ORDERABLES Final Resul t Performing Organization Address City/[facility] Co de Phone Number [facility] [address] [place] [address], * Triiodothyronine free (09/20/2024 3:26 PM EST) T3, Free 255 230 - 420 pcg/dL LAB CHEMISTRY METHOD 09/22/2024 2:50 PM EST [facility] Blood Venous blood specimen / Unknown Venipuncture / Unknown 09/20/2024 3:26 PM EST 09/20/2024 3:26 PM EST Emelina FLOYD LAB BLOOD ORDERABLES Final Resul t [facility] [address] [place] [address], [place] [phone] * Hemoglobin A1c (09/20/2024 3:26 PM EST) Hemoglobin A1C 6.0 <6.5 % LAB CHEMISTRY METHOD 09/20/2024 9:48 PM EST [facility] Mean Bld Glu Estim. 126 mg/dL LAB CHEMISTRY METHOD 09/20/2024 9:48 PM [facility] Blood Venous blood specimen / Unknown Venipuncture / Unknown 09/20/2024 3:26 PM EST 09/20/2024 3:26 PM EST Emelina FLOYD LAB BLOOD ORDERABLES Final Resul t Performing Organization Address [facility]/ZIP Co de Phone Number [facility] [address] [place] [address], [place] [phone] * (ABNORMAL) Comprehensive metabolic panel (09/20/2024 3:26 PM EST) Only the most recent of2 resultswithin the time period is included. Pathologist [facility] Sodium 138 133 - 145 mmol/L LAB CHEMISTRY METHOD 09/20/2024 6:00 PM [facility] Potassium 3.9 3.5 - 5.5 mmol/L LAB CHEMISTRY METHOD 09/20/2024 6:00 PM [facility] Chloride 106 96 - 110 mmol/L LAB CHEMISTRY METHOD 09/20/2024 6:00 PM [facility] CO2 26 21 - 32 mmol/L LAB CHEMISTRY METHOD 09/20/2024 6:00 PM [facility] Anion Gap 6 3 - 11 LAB CHEMISTRY METHOD 09/20/2024 6:00 PM [facility] Glucose 143(H) 70 - 100 mg/dL LAB CHEMISTRY METHOD 09/20/2024 6:00 PM [facility] BUN 18 5 - 25 mg/dL LAB CHEMISTRY METHOD 09/20/2024 6:00 PM [facility] Creatinine 1.05 0.50 - 1.10 mg/dL LAB CHEMISTRY METHOD 09/20/2024 6:00 PM [facility] eGFR 61 >=60 mL/min/1. 73m2 LAB CHEMISTRY METHOD 09/20/2024 6:00 PM [facility] Comment:Calculation based on the??Chronic Kidney Disease Epidemiology Collaboration (CKD-EPI) equation refit??without adjustment for race. BUN/Creatinine Ratio 17.1 LAB CHEMISTRY METHOD 09/20/2024 6:00 PM [facility] Calcium 9.0 8.5 - 10.5 mg/dL LAB CHEMISTRY METHOD 09/20/2024 6:00 PM [facility] AST (SGOT) 17 10 - 42 unit/L LAB CHEMISTRY METHOD 09/20/2024 6:00 PM [facility] ALT (SGPT) 22 10 - 60 unit/L LAB CHEMISTRY METHOD 09/20/2024 6:00 PM [facility] Alkaline Phosphatase 105 42 - 121 unit/L LAB CHEMISTRY METHOD 09/20/2024 6:00 PM [facility] Total Protein 6.8 6.0 - 8.0 g/dL LAB CHEMISTRY METHOD 09/20/2024 6:00 PM [facility] Albumin 3.7 3.2 - 5.0 g/dL LAB CHEMISTRY METHOD 09/20/2024 6:00 PM [facility] Total Bilirubin 0.3 0.0 - 1.4 mg/dL LAB CHEMISTRY METHOD 09/20/2024 6:00 PM [facility] Blood Venous blood specimen / Unknown Venipuncture / Unknown 09/20/2024 3:26 PM EST 09/20/2024 3:26 PM EST us Emelina FLOYD LAB BLOOD ORDERABLES Final Resul t Performing Organization Address [facility]/ZIP Co de Phone Number [facility] [address] [place] [address], [place] [phone] * Lipase (08/13/2024 2:41 PM EST) Lipase 64 13 - 75 unit/L LAB CHEMISTRY METHOD 08/13/2024 6:02 PM EST [facility] Blood Venous blood specimen / Unknown Venipuncture / Unknown 08/13/2024 2:41 PM EST 08/13/2024 2:41 PM EST Marilu FLOYD LAB BLOOD ORDERABLES Final Result Performing Organization Address [facility] Co de Phone Number [facility] [address] [place] [address], * SCREENING MAMMOGRAPHY BI 2-VIEW BREAST INC [...] Insurance MEDICARE MEDICAID - [place] Care Teams Delivery Professional Relationship Specialty Start Date End Date Bree Livingston MD [address] [place] [id number] PCP - General 06/01/03
== END 2024-10-22 12:49 | disposition home or self-care (01) ==
LOC: HO.HOSX 12:48
PROVIDERS: PCP Pediatrics; Visit Provider Physician Assistant
DX: M25.559 Pain in unspecified hip (principal)
CPT/HCPCS: 73522; 99202

== ENCOUNTER 2024-10-22 12:48 | Outpatient (AMB) | payer MEDICARE, MEDICAID, SELFPAY ==
--- NOTE | 2024-10-22 13:03 | HO.SPINEOV ---
Vital Signs 10/22/24 13:14 Height 5 ft 3.5 in Weight 165 lb BMI 28.8 Intake Visit Reasons: LBP & bilateral hip pain Intake Note: Ms. Pool is here today c/o Low back pain that radiates down to the Hips. Manager Desktop Required: No Physical Exam Vital Signs: BMI result Body Mass Index 28.8 Assessment & Plan Assessment & Plan (1) Hip pain: Code(s): M25.559 - Pain in unspecified hip Category: Medical Plan Dear Emelina, Thank you for referring Mrs Pool to our office today. She is a 59-year-old female with a diagnosis of Sjogren syndrome, appears to be some type of diffuse autoimmune Sjogren syndrome that affects her joints in addition to her mucous membranes, who presents with 2 separate issues. The 1st thing is that she has had number of different years of back pain and what she describes as sciatic pain. It comes and goes, but maybe for 6 weeks ago she had a severe flare-up of it. [facility], was treated there briefly and discharged in that pain got better. She was started on steroids at that time. She had a follow-up steroid treatment as well with prednisone. About 3 or 4 weeks ago she developed severe bilateral anterior groin pain which radiates down to the front of her thighs. It is present all the time, aggravated with standing and walking and simple things like trying to get out of a chair or go up stairs. It also bothers her at night and she has to assume a very specific position to get the pain to go away. She has been taking meloxicam, aspirin help with it. It is seems to be only getting worse. There is no pain shooting down into the legs distally. There is no claudicating numbness etc.. The pain she is currently having seems to be mostly focused in the anterior groin in the front of the thighs. She had an MRI done at [facility] showing severe stenosis at L4-5 and came to see us for an evaluation. PMH: As mentioned she has Sjogren syndrome but it is some type of diffuse form that affects her joints in multiple body systems. 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 Social hx: She does not smoke, drink use any recreational drugs Medications: Levothyroxine, meloxicam, aspirin, cevimeline, inhalers, Klonopin, pantoprazole, IVIG subcutaneous at home weekly. Allergies: Cipro, sulfa med Physical exam: Awake alert oriented she is very uncomfortable just standing out of a chair. Walking down the hallway she is limping, seems to be favoring the right side more than the left. She was able to get on the examining table on her own. Any attempts at internal and external rotation of both legs but more so on the right gives her significant pain. She has limitations with hip flexion causing pain in the anterior groin compartment bilaterally. Distal lower extremity strength and reflexes are normal. Imaging review: Lumbar MRI done at [facility] shows severe stenosis at L4-5. There are some hemangioma seen as well. Impression: 59-year-old female presents with 2 separate issues. The 1st is a longstanding sciatic pain that she has had on and off for years. Recently had a flare-up about a month ago and that went away. She was treated with prednisone and then shortly thereafter started to develop severe anterior groin pain. Currently the anterior groin pain is crippling. Just having her walk in the office or any manipulation of her legs gives her severe pain into the groin. I sent her for x-rays and briefly reviewed them with Dr. Wells, who thinks it looks like pretty typical osteoarthritis, may benefit from some kind of intervention so I will refer her up to see him for that. I am not sure if it is something as simple as a cortisone injection or if she needs hip replacement. If he does not feel the osteoarthritis is bad enough to explain the symptoms, then we could consider lumbar decompression, however her symptoms are somewhat atypical. It might be beneficial to have a TFE done 1st at L5 just to make sure that this is the source of her pain. Case reviewed with Dr. Sandra who agrees with the plan as outlined above. I told the patient to call me once she has seen Dr. Wells and we can review the plan again. Thank you for allowing us to care for your patient. The total time spent with this visit with this patient was 45 minutes reviewing history, physical exam, lumbar imaging review, and implementation of treatment plan or further diagnostic testing Kentrell Sandra MD,PhD [facility] Orders: Orders XR hip YVETTE min 3V Today M25.559 - Pain in unspecified hip Referrals Orthopedics Referral M25.559 - Pain in unspecified hip Coding Level of Care Code New Pt Level 4 (39904) Diagnoses Hip pain M25.559
[2024-10-22 13:14] VITALS: BMI 28.8
--- OUTSIDE RECORDS SUMMARY | 2024-10-22 13:17 | XMS_ITS | Encounter Summary ---
Author Organization [facility] Address [address] [place] [address] Care Team Providers Care Poultry Processor Name Role Phone Bree Livingston MD Primary Care Provider [phone] Reason for Visit * Reason Comments Follow-up * Consultation (Routine) - Authorized Specialty Diagnoses / Procedures Referred By Contac t Referred To Contact Hematology / Hematology and Oncology Diagnoses Neutrophilia Emelina Nolan PA [address] [place] [address] Phone: tel: fax: [facility] Hematology Oncology [address] [place] [address] Phone: tel: fax: Referral ID Status Reason Start Date Expiration Date Visits Requested Visits Authorized [id number] Authorized Specialty Services Required 09/21/2024 09/21/2025 1 1 Encounter Details Date Type Department Care Team (Late st Contact Info) Description 10/21/2024 3:30 PM EST Office Visit [facility] Hematology Oncology [address] [place] [phone] Jacky Ramsey MD [address] [place] [address] Neutrophilia Social History Tobacco Use Types Packs/Day Years Used Date Smoking Tobacco: Former Cigarettes 1 36.2 0 1978 - 04/08/2014 Passive Smoke Exposure: Never Tobacco Cessation:Counseling Given: Not Answered Alcohol Use Standard Drinks/Week Comments No 0 [...] care for your loved ones. For example, children's service supervisor or elderly care for an older adult? [...] What is your living situation? 1 10/14/2023 Comments Unknown Sex and Gender Information Value Date Recorded Sex Assigned at Female 10/16/2024 10:30 AM EST Legal Sex Female 12:16 PM EST Gender Identity Female 10/16/2024 10:30 AM EST Sexual Orientation Not on file documented as of this encounter Last Filed Vital Signs Vital Sign Reading Time Taken Comments Blood Pressure 138/85 10/21/2024 3:47 PM EST Pulse 103 10/21/2024 3:47 PM EST Temperature 36.8 ??C (98.2 ??F) 10/21/2024 3:47 PM ES T Respiratory Rate - - Oxygen Saturation 98% 10/21/2024 3:47 PM EST Inhaled Oxygen Concentration - - Weight 74.8 kg (165 lb) 10/21/2024 3:47 PM EST Height - - Body Mass Index 29.23 10/13/2024 2:24 PM EST documented in this encounter Plan of Treatment Upcoming Encounters Date Type Department Care Team (Late st Contact Info) Description 11/11/2024 1:20 PM EDT Office Visit Gastroenterology - 299 [facility] 299 [facility] [address] [place] [phone] Dorcas Lozoya PA 299 [facility] [address] [place] [address] 02/22/2025 2:30 PM EDT Office Visit [facility] Hematology Oncology [address] [place] [phone] Jacky Ramsey MD [address] [place] [phone] 03/02/2025 3:50 PM EDT Appointment Radiology Department - [address] [address] documented as of this encounter Visit Diagnoses Diagnosis Neutrophilia Other specified disease of white blood cells documented in this encounter Orders Outpatient Referral Count Last Ordered Date Fir st Ordered Date AMB REFERRAL TO HEMATOLOGY 1 10/21/2024 documented in this encounter Additional Health Concerns Assessment Noted Time PHQ-9 Depression Total Score: 20 025 2:16 PM EST documented as of this encounter Care Teams Poultry Processor Relationship Specialty Start Date End Date Bree Livingston MD [address] [place] [address] PCP - General 06/01/03 documented as of this encounter
--- OUTSIDE RECORDS SUMMARY | 2024-10-22 13:17 | XMS_ITS | Clinical Summary ---
Author Organization [facility] Address [address] [id number] Care Team Providers Care Watershed Tender Name Role Phone Murray Livingston MD Primary Care Provider [phone] Allergies Active Allergy Reactions Criticality Noted Date Comments Ciprofloxacin 06/18/2022 Sulfate 06/18/2022 Medications Medication Sig Dispensed Refills Start Date End Date Status cevimeline (EVOXAC) 30 MG capsule Take 1 capsule (30 mg total) by mouth 3 (three) times a day. 0 Active meloxicam (MOBIC) 15 MG tablet Take 1 tablet (15 mg total) by mouth daily. 0 Active vitamin D3 (cholecalciferol) 25 MCG (1000 UT) tablet Take 1 tablet (25 mcg total) by mouth daily. 0 Active clonazePAM (KlonoPIN) 1 MG tablet Take 1 tablet (1 mg total) by mouth 2 (two) times a day as needed for anxiety. 0 Active Immune Globulin, Human, (HIZENTRA SC) Inject under the skin once a week. 0 Active aspirin EC 81 MG tablet Take 1 tablet (81 mg total) by mouth daily. 0 Active acetaminophen (TYLENOL) 325 MG tablet Take 2 tablets (650 mg total) by mouth every 6 (six) hours as needed for pain. 0 Active salmeterol (SEREVENT) 50 MCG/DOSE diskus inhaler Inhale 1 inhalation. into the lungs 2 (two) times a day. 0 Active Albuterol Sulfate 108 (90 Base) MCG/ACT AEPB Inhale into the lungs. 0 Active Dentifrices (FLUORIDE TOOTHPASTE DT) Place onto teeth. 0 Act ranjana amoxicillin-clavulanat e (AUGMENTIN) 500-125 MG per tablet Take 1 tablet (500 mg total) by mouth 2 (two) times a day. 0 Active levothyroxine (SYNTHROID) tablet 50 mcg Take 1 tablet (50 mcg total) by mouth every morning on an empty stomach. 0 Active Active Problems Problem Noted Date Diagnosed Date Neutrophilia 06/23/2022 Social History Tobacco Use Types Packs/Day Years Used Date Smoking Tobacco: Never Assessed Sex and Gender Information Value Date Recorded Sex Assigned at Not on file Gender Identity Not on file Sexual Orientation Not on file Job Start Date Occupation Industry Not on file Not on file Not on file Last Filed Vital Signs Vital Sign Reading Time Taken Comments Blood Pressure 112/66 06/22/2024 2:48 PM EDT Pulse 99 06/22/2024 2:48 PM EDT Temperature 36.1 ??C (97 ??F) 06/22/2024 2:48 PM EDT Respiratory Rate - - Oxygen Saturation 100% 06/22/2024 2:48 PM EDT Inhaled Oxygen Concentration - - Weight 74.4 kg (164 lb) 06/22/2024 2:48 PM EDT Height 162.6 cm (5' 4 ) 01/02/2023 3:20 PM EDT Body Mass Index 28.15 01/02/2023 3:20 PM EDT Plan of Treatment Health Maintenance Due Date Last Done Comments Pneumococcal Vaccine (1 of 2 - PCV) 1969 Depression Screening 1975 Preventative Health Evaluation 1981 Cervical Cancer Screening (Pap Smear) 01/16/1984 Colon Cancer Screening (Colonoscopy) 01/16/2008 Breast Cancer Screening (Mammogram) 2013 COVID-19 Vaccine (3 - Pfizer risk series) 02/06/2021 01/09/2021, 12/19/2020 Shingrix-Zoster Vaccine (2 of 2) 01/23/2022 11/28/2021 RSV Adult > 60+ Yrs or (1 - Risk 60-74 years 1-dose series) 2023 Influenza Vaccine (#1) 2024 2, 05/17/2021, 05/08/2020, Additional history exists DTap / Tdap / Td (3 - Td or Tdap) 10/17/2027 10/17/2017, 03/11/2008 Hepatitis B Vaccines Completed 07/11/2017, 09/06/2008, 04/15/2008, Additional history exists Hepatitis C Screening Completed 07/02/2018 RSV Ped < 20 months Aged Out No longe r eligible based on patient's age to complete this topic Care Teams Watershed Tender Relationship Specialty Start Date End Date Murray Livingston MD PCP - General Lehr Operator 05/15/22
--- OUTSIDE RECORDS SUMMARY | 2024-10-22 13:17 | XMS_ITS | Encounter Summary ---
Author Organization [facility] Address [address] [place] [address] Care Team Providers Care General Agent Name Role Phone Bree Livingston MD Primary Care Provider [phone] Encounter Details Date Type Department Care Team (Late st Contact Info) Description 06/22/2024 2:43 PM EDT Hospital Encounter TH HISTORIC ENCOUNTERS EASTERN CONVERSION ONLY Jacky Ramsey MD [address] [place] [phone] Social History Tobacco Use Types Packs/Day [...] for your loved ones. For example, child and adolescent psychologist or elderly care for an older adult? [...] PM EDT Office Visit Gastroenterology - [address] [phone] Dorcas Lozoya PA [address] [address] 02/22/2025 2:30 PM EDT Office Visit [facility] Hematology Oncology [address] [place] [phone] Jacky Ramsey MD [address] [place] [address] 03/02/2025 3:50 PM EDT Appointment Radiology Department - [address] [phone] documented as of this encounter Procedures Procedure Name Priority Date/Time Associated Diagnosis Comments ..MISCELLANEOUS REFERENCE LAB TEST 06/22/2024 documented in this encounter Results * Miscellaneous reference lab test (06/22/2024) us Provider Onbase LAB BLOOD ORDERABLES Final Re sult documented in this encounter Visit Diagnoses Not on filedocumented in this encounter Care Teams General Agent Relationship Specialty Start Date End Date Bree Livingston MD [address] [place] [address] PCP - General 06/01/03 documented as of this encounter
--- OUTSIDE RECORDS SUMMARY | 2024-10-22 13:17 | XMS_ITS | Encounter Summary ---
Author Organization [facility] Address [address] [place] [address] Care Team Providers Care Gasoline Truck Operator Name Role Phone Bree Livingston MD Primary Care Provider [phone] Reason for Visit * Hospital - Outpatient (Routine) - Authorized Specialty Diagnoses / Procedures Referred By Feroz borrero Referred To Contact Gastroenterology Diagnoses Dysphagia RUQ pain Epigastric pain Procedures EGD Dilation; Anesthesia - MAC; [facility] ENDOSCOPY Luis Fu MD [address] [address] Phone: tel: fax: [facility] Endoscopy [address] [place] [address] Phone: tel: Referral ID Status Reason Start Date Expiration Date V isits Requested Visits Authorized [id number] Authorized 10/13/2024 10/13/2025 1 1 Encounter Details Date Type Department Care Team (Late st Contact Info) Description 10/19/2024 9:30 AM EST Hospital Encounter [facility] Endoscopy [address] [place] [phone] Luis Fu MD [address] [address] Rachell Haley CRNA [address] [place] [address] Blas Garvey MD [address] [place] [phone] Social History Tobacco Use Types Packs/Day Years [...] for your loved ones. For example, child health associate or elderly care for an older adult? [...] on file documented as of this encounter H&P Notes * Luis Fu MD - 10/19/2024 9:30 AM EST Pre-Op Diagnosis: Dysphagia Proposed Procedure: EGD Performing Surgeon/MD/Endoscopist: Luis Fu MD Medical/History: Past Medical History: Diagnosis Date Aneurysm of unspecified site (CMS/HCC) 05/2006 DX:Aneurysm of unspecified site (HCC); COMMENT: [facility], coils, not able to clip Cervical cancer (CMS/HCC) DX:Cervical cancer (HCC); COMMENT: in situ Depressive disorder, not elsewhere classified DX:Depressive disorder, not elsewhere classified; COM[facility] Diverticulitis DX:Diverticulitis; COMMENT: s/p colon resection Diverticulosis of colon (without mention of hemorrhage) 11/16/2009 DX:Diverticulosis of colon (without mention of hemorrhage) Esophageal reflux DX:Esophageal reflux History of migraine 03/15/2020 DX:History of migraine; COMMENT: Childhood onset. Chronic botox rx. Multiple thyroid nodules DX:Multiple thyroid nodules; COMMENT: thyroid removed 2007 Normal delivery DX:Normal delivery Special screening for malignant neoplasms, colon 11/16/2009 DX:Special screening for malignant neoplasms, colon Type II or unspecified type diabetes mellitus with unspecified complication, not stated as uncontrolled DX:Type II or unspecified type diabetes mellitus with unspecified complication, not stated as uncontrolled Past Surgical History: Procedure Laterality Date APPENDECTOMY 05/2024 BLADDER SURGERY PROCEDURE: HISTORICAL BLADDER SURGERY; COMMENT: implant for frequency BREAST BIOPSY Left 2009 PROCEDURE: BX BREAST; PERC NEEDLE CORE W/IMAG GUID; COMMENT: lt. breast bx.-benign SECTION PROCEDURE: HISTORICAL DELIVERY CHOLECYSTECTOMY PROCEDURE: HISTORICAL CHOLECYSTECTOMY COLONOSCOPY 11/16/2009 PROCEDURE: HISTORICAL COLONOSCOPY; COMMENT: diverticulosis OTHER SURGICAL HISTORY 2002 PROCEDURE: [place] COLECTOMY PARTIAL W/ANASTOMOSIS; COMMENT: Diverticulitis OTHER SURGICAL HISTORY 1969 PROCEDURE: [place] EXCISION SYNOVIAL CYST POPLITEAL SPACE OTHER SURGICAL HISTORY 2004 PROCEDURE: [place] RESCJ OVARIAN/TUBAL/PERITONEAL MALIGNANCY W/BSO OTHER SURGICAL HISTORY 2007 PROCEDURE: HISTORICAL SUBTOTAL THYROIDECTOMY; COMMENT: Ronnie--Right lobe and isthmus OTHER SURGICAL HISTORY 06/21/2009 PROCEDURE: [facility]G RADIOLOGIC EXAM COLON DOUBLE CONTRAST STUDY; COMMENT: diverticulosis, no obstruction. OTHER SURGICAL HISTORY 04/2016 PROCEDURE: [place] LAPAROSCOPY SLING OPERATION STRESS INCONT UPPER GASTROINTESTINAL ENDOSCOPY 08/08/2016 PROCEDURE: [place] UPPER GI ENDOSCOPY PERFORMED; COMMENT: Normal upper GI findings, not on H2 saurabh orPPI treatment. VAGINAL DELIVERY PROCEDURE: HISTORICAL VAGINAL DELIVERY; COMMENT: 1 Medications/Allergies: Prior to Admission medications Medication Sig Start Date End Date Taking? Authorizing Provider albuterol sulfate (ProAir RespiClick) 90 mcg/actuation aerosol powdr breath activated Inhale 2 puffs by mouth 4 (four) times a day if needed (shortness of breathing). Historical Provider, cevimeline (EVOXAC) 30 mg capsule TAKE 1 CAPSULE BY MOUTH THREE TIMES A DAY 08/13/24 MARIEL Rg clonazePAM (KlonoPIN) 1 mg tablet Take 1 tablet (1 mg total) by mouth 2 (two) times a day as neededfor anxiety. Historical Provider, doxycycline (ADOXA) 50 mg tablet Take 1 tablet (50 mg total) by mouth 1 (one) time each day. Take with a full glass of water and do not lie down for at least 30 minutes after. Historical Provider, ezetimibe (ZETIA) 10 mg tablet Take 1 tablet (10 mg total) by mouth 1 (one) time each day. 07/09/24 MARIEL Singer FLUORIDE TOOTHPASTE DENT Dentifrices (FLUORIDE TOOTHPASTE DT) Place onto teeth. Historical Provider, immune globulin (HIZENTRA) (20%) solution infusion Inject under the skin once a week. Historical Provider, levothyroxine (SYNTHROID, LEVOTHROID) 50 mcg tablet TAKE 1 TABLET BY MOUTH EVERY DAY 10/13/24 Bree Livingston MD meloxicam (MOBIC) 15 mg tablet Take 1 tablet (15 mg total) by mouth daily. Historical Provider, pantoprazole (PROTONIX) 40 mg EC tablet Take 1 tablet (40 mg total) by mouth 1 (one) time each day.04/12/24 Historical Provider, pantoprazole (PROTONIX) 40 mg EC tablet Take 1 tablet (40 mg total) by mouth 2 (two) times a day. Do not crush, chew, or split. 10/13/24 10/13/25 MARIEL Rehman salmeteroL (SEREVENT) 50 mcg/dose diskus inhaler Inhale 1 inhalation. into the lungs 2 (two) times a day. Historical Provider, Vitamin D3 25 mcg (1,000 unit) capsule Take 1 capsule (1,000 Units total) by mouth 1 (one) time each day. 05/16/24 Historical Provider, levothyroxine (SYNTHROID, LEVOTHROID) 50 mcg tablet TAKE 1 TABLET BY MOUTH EVERY DAY 07/09/24 10/13/24 MARIEL Singer Patient Age:59 y.o. Vitals: There were no vitals filed for this visit. Physical Exam: Mental Status: Clear HEENT: WNL Heart: WNL Lungs: WNL Abdomen: WNL Extremities: WNL Neuro: WNL Labs: Imaging: Diagnosis/Plan: EGD documented in this encounter Plan of Treatment Upcoming Encounters Date Type Department Care Team (Late st Contact Info) Description 11/11/2024 1:20 PM EDT Office Visit Gastroenterology - [address] [phone] Dorcas Lozoya PA [address] [address] 02/22/2025 2:30 PM EDT Office Visit [facility] Hematology Oncology [address] [place] [phone] Jacky Ramsey MD [address] [place] [phone] 03/02/2025 3:50 PM EDT Appointment Radiology Department - [address] [phone] Scheduled Orders Name Type Priority Associated Diagnoses Orde r Schedule EGD Dilation; Anesthesia - MAC; [facility] ENDOSCOPY Endoscopy Routine Dysphagia RUQ pain Epigastric pain Expected: 10/19/2024, Expires: 10/13/2025 documented as of this encounter Visit Diagnoses Not on filedocumented in this encounter Additional Health Concerns Assessment Noted Time PHQ-9 Depression Total Score: 20 025 2:16 PM EST documented as of this encounter Care Teams Gasoline Truck Operator Relationship Specialty Start Date End Date Bree Livingston MD [address] [place] [address] PCP - General 06/01/03 documented as of this encounter
--- OUTSIDE RECORDS SUMMARY | 2024-10-22 13:17 | XMS_ITS ---
Author Organization [facility] [address] [facility] Address [address] [place] [address] Phone Care Team Providers Care Special Procedures Tech Name Role Phone Bree Livingston MD Primary Care Provider [phone] Box Car Washer Care Management Status:Closed (Closed) Start date:09/27/2024 Enrollment reason:Identified using claims or encounter data End date:09/28/2024 Close reason:Not interested at this time Overview BH assignment - PHQ positive Continued Care and Services Coordination
--- OUTSIDE RECORDS SUMMARY | 2024-10-22 13:17 | XMS_ITS | Encounter Summary ---
Author Organization [facility] Address [address] [place] [address] Care Team Providers Care Photographic Platemaker Name Role Phone Murray Livingston Primary Care Provider [phone] Reason for Visit * Reason Onset Date Comments PAC Appt Request - New 05/07/2023 Encounter Details Date Type Department Care Team (Late st Contact Info) Description 05/07/2023 Telephone [facility] [address] [place] [address] Telephone Intake, Staff PAC Appt Request - New Social History Tobacco Use Types Packs/Day Years Used Date Smoking Tobacco: Former Cigarettes Smokeless Tobacco: Never Alcohol Use Standard Drinks/Week Comments Not Currently 0 (1 standard drink = 0.6 oz pur e alcohol) Comments Unknown Sex and Gender Information Value Date Recorded Sex Assigned at Female 03/02/2023 5:37 PM EDT Legal Sex Female 3:38 AM EDT Gender Identity Female 03/02/2023 5:37 PM EDT Sexual Orientation Straight 03/02/2023 5: 37 PM EDT Occupation Industry Job Start Date Job End Date retired Not on file Not on file Not on file documented as of this encounter Miscellaneous Notes * Telephone Encounter - Geneva Wang - 05/07/2023 4:23 PM EDT 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 PAC was unable to populate a schedule and unable to reach anyone in the clinic at the time of the call. Please reach out to schedule appt. -PAC documented in this encounter Plan of Treatment Upcoming Encounters Date Type Department Care Team (Late st Contact Info) Description 11/01/2024 2:00 PM EST Follow-Up [facility] [address] [place] [address] Cloth Washer Back Tender: Michell Mcghee MD [address] [place] [address] 01/26/2025 1:15 PM EDT Clinical Support [facility] [address] [address] 01/26/2025 1:30 PM EDT Follow-Up [address] [address] Celsa Sanford MD [address] [place] [address] 03/08/2025 2:15 PM EDT Follow-Up [address] [address] Felix Prakash MD [address] [place] [phone] documented as of this encounter Visit Diagnoses Not on filedocumented in this encounter Care Teams Photographic Platemaker Relationship Specialty Start Date End Date Murray Livingston PCP - General Internal Medicine 02/24/23 documented as of this encounter
--- OUTSIDE RECORDS SUMMARY | 2024-10-22 13:17 | XMS_ITS | Encounter Summary ---
Author Organization [facility] Address [address] [place] [address] Care Team Providers Care Agricultural Extension Educator Name Role Phone Bree Livingston MD Primary Care Provider [phone] Reason for Visit * Reason Comments Abdominal Pain * Consultation (Routine) - Closed Specialty Diagnoses / Procedures Referred By Feroz borrero Referred To Contact Gastroenterology Diagnoses Epigastric pain Family history of pancreatic cancer Marilu Lang PA [address] [place] [address] Phone: tel: fax: Gastroenterology - [address] [place] [phone] Phone: tel: fax: Referral ID Status Reason Start Date Expiration Date V isits Requested Visits Authorized [id number] Closed Specialty Services Required 08/13/2024 08/13/2025 1 1 Encounter Details Date Type Department Care Team (Latest Contact Info) Description 10/13/2024 2:20 PM EST Office Visit Gastroenterology - [address] [facility] [address] [address] Dorcas Lozoya PA [address] [address] Pharyngoesophageal dysphagia (Primary Dx); Epigastric pain; Hiccups Social History Tobacco Use Types Packs/Day Years [...] for your loved ones. For example, child custody evaluator or elderly care for an older adult? [...] Sign Reading Time Taken Comments Blood Pressure - - Pulse - - Temperature - - Respiratory Rate - - Oxygen Saturation - - Inhaled Oxygen Concentration - - Weight 77.1 kg (170 lb) 10/13/2024 2:24 PM EST Height 160 cm (5' 3 ) 10/13/2024 2:24 PM EST Body Mass Index 30.11 10/13/2024 2:24 PM EST documented in this encounter Ordered Prescriptions Prescription Sig Dispense Quantity Refills Last Filled Start Date End Date pantoprazole (PROTONIX) 40 mg EC tabletIndications: Epigastric pain Take 1 tablet (40 mg total) by mouth 2 (two) times a day. Do not crush, chew, or split. 180 each 3 10/13/2024 10/13/2025 documented in this encounter Progress Notes * MARIEL Rehman - 10/13/2024 2:20 PM EST Subjective Last Colononscopy/EGD: Per pt, up to date. Colonoscopy at [place]. Will try to obtain records. Did not see any procedures listed in system. HPI: Dayami Pool is a 59 y.o. old female who was referred to us by Bree Livingston MD now presents to the gastroenterology department today for epigastric pain and a family history of pancreatic cancer. Her father was diagnosed with pancreatic cancer at age 42. The epigastric pain has been intermittent. She did have a severe episode and she thought she was having a heart attack and went to the emergency room. It occasionally wraps to the right upper quadrant to her back. She reports having anunremarkable cardiac evaluation and was diagnosed with costochondritis via the ED. She reports having an unremarkable ultrasound for this as well. She status post cholecystectomy prior to this. Takes pantoprazole 40 mg once a day. She does not have a lot of heartburn or reflux symptoms while takingthis. She has hiccups. She described dysphagia with even soft solids. She occasionally feels as if she chokes on her own saliva. She has a history of Sjogren's. She uses NSAIDs. She described intermittent pale floating stool as well as black tarry stool. The last episode of that was 3 or 4 months ago. She denied unintentional weight loss or vomiting. She is seeing a cafeteria associate next month for leukocytosis. LABS/IMAGING: Component Ref Range & Units 3 wk ago WBC 4.8 - 10.8 K/mcL 17.5 High RBC 3.80 - 4.80 M/mcL 4.90 High Hemoglobin 11.5 - 16.0 g/dL 14.7 Hematocrit 35.0 - 47.0 % 44.6 MCV 79.0 - 98.0 FL 90.8 MCH 27.0 - 32.0 pcg 29.9 MCHC 32.0 - 37.0 g/dL 33.0 RDW 11.0 - 15.0 % 14.3 Platelets 130 - 400 K/mcL 339 MPV 7.0 - 11.0 FL 10.6 NRBC <1.0 % 0.0 NRBC Absolute <0.10 K/mcL 0.00 Resulting Agency [facility] Component Ref Range & Units 3 wk ago 2 mo ago Sodium 133 - 145 mmol/L 138 141 Potassium 3.5 - 5.5 mmol/L 3.9 4.5 Chloride 96 - 110 mmol/L 106 109 CO2 21 - 32 mmol/L 26 25 Anion Gap 3 - 11 6 7 Glucose 70 - 100 mg/dL 143 High 98 BUN 5 - 25 mg/dL 18 16 Creatinine 0.50 - 1.10 mg/dL 1.05 1.18 High eGFR >=60 mL/min/1.73m2 61 53 Low CM Comment: Calculation based on the Chronic Kidney Disease Epidemiology Collaboration (CKD-EPI) equation refit without adjustment for race. BUN/Creatinine Ratio 17.1 13.6 Calcium 8.5 - 10.5 mg/dL 9.0 9.1 AST (SGOT) 10 - 42 unit/L 17 22 ALT (SGPT) 10 - 60 unit/L 22 22 Alkaline Phosphatase 42 - 121 unit/L 105 98 Total Protein 6.0 - 8.0 g/dL 6.8 6.8 Albumin 3.2 - 5.0 g/dL 3.7 3.9 Total Bilirubin 0.0 - 1.4 mg/dL 0.3 0.3 Review of Systems Constitutional: Negative. Negative for unexpected weight change. HENT: Positive for trouble swallowing. Respiratory: Negative. Cardiovascular: Negative. Gastrointestinal: Positive for abdominal pain (epigatric pain). Negative for vomiting. Hiccups Genitourinary: Negative. PROBLEM LIST: Patient Active Problem List Diagnosis Neutrophilia PAST MEDICAL HISTORY: Past Medical History: Diagnosis Date Aneurysm of unspecified site (CMS/HCC) 05/2006 DX:Aneurysm of unspecified site (HCC); COMMENT: [facility], coils, not able to clip Cervical cancer (CMS/HCC) DX:Cervical cancer (HCC); COMMENT: in situ Depressive disorder, not elsewhere classified DX:Depressive disorder, not elsewhere classified; COMMENT: Dr Gladys lindo Diverticulitis DX:Diverticulitis; COMMENT: s/p colon resection Diverticulosis [...] with unspecified complication, not stated as uncontrolled PAST SURGICAL HISTORY: Past Surgical History: Procedure Laterality Date BLADDER SURGERY PROCEDURE: HISTORICAL BLADDER SURGERY; COMMENT: implant for frequency BREAST BIOPSY Left 2009 PROCEDURE: BX BREAST; PERC NEEDLE CORE W/IMAG GUID; COMMENT: lt. breast bx.-benign SECTION PROCEDURE: HISTORICAL DELIVERY CHOLECYSTECTOMY PROCEDURE: HISTORICAL CHOLECYSTECTOMY COLONOSCOPY 11/16/2009 PROCEDURE: HISTORICAL COLONOSCOPY; COMMENT: diverticulosis OTHER SURGICAL HISTORY 2002 PROCEDURE: IN COLECTOMY PARTIAL W/ANASTOMOSIS; COMMENT: Diverticulitis OTHER SURGICAL HISTORY 1969 PROCEDURE: IN EXCISION SYNOVIAL CYST POPLITEAL SPACE OTHER SURGICAL HISTORY 2004 PROCEDURE: IN RESCJ OVARIAN/TUBAL/PERITONEAL MALIGNANCY W/BSO OTHER SURGICAL HISTORY 2007 PROCEDURE: HISTORICAL SUBTOTAL THYROIDECTOMY; COMMENT: Ronnie--Right lobe and isthmus OTHER SURGICAL HISTORY 06/21/2009 PROCEDURE: CHG RADIOLOGIC EXAM COLON DOUBLE CONTRAST STUDY; COMMENT: diverticulosis, no obstruction. OTHER SURGICAL HISTORY 04/2016 PROCEDURE: IN LAPAROSCOPY SLING OPERATION STRESS INCONT UPPER GASTROINTESTINAL ENDOSCOPY 08/08/2016 PROCEDURE: IN UPPER GI ENDOSCOPY PERFORMED; COMMENT: Normal upper GI findings, not on H2 saurabh orPPI treatment. VAGINAL DELIVERY PROCEDURE: HISTORICAL VAGINAL DELIVERY; COMMENT: 1 SOCIAL HISTORY: Social History Tobacco Use Smoking status: Former Current packs/day: 0.00 Average packs/day: 1 pack/day for 36.2 years (36.2 ttl pk-yrs) Types: Cigarettes Start date: 1978 Quit date: 04/08/2014 Years since quittin.5 Passive exposure: Never Smokeless tobacco: Not on file Substance Use Topics Alcohol use: No FAMILY HISTORY: Family History Problem Relation Name Age of Onset Diabetes Father Pancreatic cancer Father at 42 Cataracts Maternal Grandmother 60s Breast cancer Maternal Grandmother 60s Cataracts Paternal Grandmother 98 Glaucoma Paternal Grandmother 98 Breast cancer Paternal Grandmother 98 Cataracts Aunt m 40s Breast cancer Aunt m 40s Breast cancer Other 2 p aunts 60s Depression Son COPD Son Other cancer Mother Other (Other: Appendix ca) Mother Other (Other: anxiety) Sister and brother Asthma Son Blindness Neg Hx Macular degeneration Neg Hx Strabismus Neg Hx Colon cancer Neg Hx ACTIVE MEDICATIONS: Current Outpatient Medications Medication Sig Dispense Refill albuterol sulfate (ProAir RespiClick) 90 mcg/actuation aerosol powdr breath activated Inhale 2 puffs by mouth 4 (four) times a day if needed (shortness of breathing). cevimeline (EVOXAC) 30 mg capsule TAKE 1 CAPSULE BY MOUTH THREE TIMES A DAY 270 capsule 1 clonazePAM (KlonoPIN) 1 mg tablet Take 1 tablet (1 mg total) by mouth 2 (two) times a day as neededfor anxiety. doxycycline (ADOXA) 50 mg tablet Take 1 tablet (50 mg total) by mouth 1 (one) time each day. Take with a full glass of water and do not lie down for at least 30 minutes after. ezetimibe (ZETIA) 10 mg tablet Take 1 tablet (10 mg total) by mouth 1 (one) time each day. 90 each 0 FLUORIDE TOOTHPASTE DENT Dentifrices (FLUORIDE TOOTHPASTE DT) Place onto teeth. immune globulin (HIZENTRA) (20%) solution infusion Inject under the skin once a week. levothyroxine (SYNTHROID, LEVOTHROID) 50 mcg tablet TAKE 1 TABLET BY MOUTH EVERY DAY 90 tablet 1 meloxicam (MOBIC) 15 mg tablet Take 1 tablet (15 mg total) by mouth daily. pantoprazole (PROTONIX) 40 mg EC tablet Take 1 tablet (40 mg total) by mouth 1 (one) time each day. salmeteroL (SEREVENT) 50 mcg/dose diskus inhaler Inhale 1 inhalation. into the lungs 2 (two) times a day. Vitamin D3 25 mcg (1,000 unit) capsule Take 1 capsule (1,000 Units total) by mouth 1 (one) time each day. pantoprazole (PROTONIX) 40 mg EC tablet Take 1 tablet (40 mg total) by mouth 2 (two) times a day. Do not crush, chew, or split. 180 each 3 No current facility-administered medications for this visit. ALLERGIES: Allergies Allergen Reactions Ciprofloxacin Sulfate Ion Physical Exam Constitutional: Appearance: Normal appearance. HENT: Head: Normocephalic. Cardiovascular: Rate and Rhythm: Normal rate and regular rhythm. Pulmonary: Effort: Pulmonary effort is normal. Breath sounds: Normal breath sounds. Abdominal: General: Bowel sounds are normal. There is no distension. Palpations: Abdomen is soft. There is no mass. Tenderness: There is no abdominal tenderness. There is no guarding or rebound. Skin: General: Skin is warm. Neurological: Mental Status: She is alert and oriented to person, place, and time. Psychiatric: Mood and Affect: Mood normal. Behavior: Behavior normal. IMPRESSION: 1. Pharyngoesophageal dysphagia 2. Epigastric pain 3. Hiccups Assessment/Plan Assessment & Plan Epigastric pain Orders: Ambulatory referral to Gastroenterology pantoprazole (PROTONIX) 40 mg EC tablet; Take 1 tablet (40 mg total) by mouth 2 (two) times a day. Do not crush, chew, or split. Pharyngoesophageal dysphagia Hiccups Increase pantoprazole 40 mg bid Avoid NSAIDs Rule out peptic ulcer disease, esoph stricture, esophagitis, mass. EGD pos dil - for dysphagia and epigastric/RUQ pain Hospital New pt EGD reviewed with patient. Risks discussed including bleeding perforation and missed lesions. Thereis always a chance surgery or transfusion could be required. Risks of anesthesia reviewed. Patient advised will need a ride home, not to have liquids for at least 3 hours prior to the procedure. F/u after MARIEL Rehman 5:16 PM EST documented in this encounter Plan of Treatment Upcoming Encounters Date Type Department Care Team ([facility] st Contact Info) Description 11/11/2024 1:20 PM EDT Office Visit Gastroenterology - [address] [facility] [address] [facility] [address] [place] [phone] Dorcas Lozoya PA 299 [facility] [address] [place] [phone] 02/22/2025 2:30 PM EDT Office Visit [facility] Hematology Oncology [address] [place] [phone] Jacky Ramsey MD [address] [place] [phone] 03/02/2025 3:50 PM EDT Appointment Radiology Department - [address] [phone] documented as of this encounter Visit Diagnoses Diagnosis Pharyngoesophageal dysphagia- Primary Dysphagia, pharyngoesophageal phase Epigastric pain Abdominal pain, epigastric Hiccups documented in this encounter Historical Medications * This list may reflect changes made after this encounter. doxycycline (ADOXA) 50 mg tablet Take 1 tablet (50 mg total) by mouth 1 (one) time each day. Take with a full glass of water and do not lie down for at least 30 minutes after. added in this encounter Orders Outpatient Referral Count Last Ordered Date Fir st Ordered Date AMB REFERRAL TO GASTROENTEROLOGY 1 10/13/19 25 documented in this encounter Additional Health Concerns Assessment Noted Time PHQ-9 Depression Total Score: 025 2:16 PM EST documented as of this encounter Care Teams Agricultural Extension Educator Relationship Specialty Start Date End Date Bree Livingston MD [address] [place] [address] PCP - General 06/01/03 documented as of this encounter
--- OUTSIDE RECORDS SUMMARY | 2024-10-22 13:17 | XMS_ITS | Encounter Summary ---
Author Organization [facility] Address [address] [place] [address] Care Team Providers Care Order Detailer Name Role Phone Bree Livingston MD Primary Care Provider [phone] Encounter Details Date Type Department Care Team (Late st Contact Info) Description 10/19/2024 11:59 PM EST Anesthesia Event [facility] Endoscopy [address] [place] [address] Rachell Haley, JAQUI [address] [place] [address] Anesthesia Record Procedure Summary Procedure Name Responsible Anesthesiologist Anesthesia Start Time Anesthesia Stop Time EGD Events No events on file. Meds * Agents No agents on file. * Blood No blood administrations on file. Lines, Drains, and Airways No LDAs on file. documented in this encounter Social History Tobacco Use Types Packs/Day Years [...] care for your loved ones. For example, director child abuse therapy or elderly care for an older adult? [...] on file documented as of this encounter Plan of Treatment Upcoming Encounters Date Type Department Care Team (Late st Contact Info) Description 11/11/2024 1:20 PM EDT Office Visit Gastroenterology - [address] [place] [phone] Dorcas Lozoya PA [address] [phone] 02/22/2025 2:30 PM EDT Office Visit [facility] Hematology Oncology [address] [place] [phone] Jacky Ramsey MD [address] [place] [phone] 03/02/2025 3:50 PM EDT Appointment Radiology Department - [address] [phone] documented as of this encounter Visit Diagnoses Not on filedocumented in this encounter Additional Health Concerns Assessment Noted Time PHQ-9 Depression Total Score: 20 025 2:16 PM EST documented as of this encounter Care Teams Order Detailer Relationship Specialty Start Date End Date Bree Livingston MD [address] [place] [phone] PCP - General 06/01/03 documented as of this encounter
--- OUTSIDE RECORDS SUMMARY | 2024-10-22 13:17 | XMS_ITS | Encounter Summary ---
Author Organization [facility] Address [address] [place] [address] Care Team Providers Care Plunger Scoop Operator Name Role Phone Bree Livingston MD Primary Care Provider [phone] Reason for Referral * Consultation (Routine) - Authorized Specialty Diagnoses / Procedures Referred By Contac t Referred To Contact Neurosurgery Diagnoses Bilateral hip pain Emelina Nolan PA [address] [place] [address] Phone: tel: fax: Lorne Sandra MD [address] [place] [address] Phone: tel: fax: Referral ID Status Reason Start Date Expiration Date Visits Requested Visits Authorized [id number] Authorized Consult and Treat 09/20/2024 09/20/2025 1 1 Reason for Visit * Reason Comments Annual Exam Encounter Details Date Type Department Care Team (Late st Contact Info) Description 09/20/2024 2:30 PM EST Office Visit Adult Medicine - [place] [address] [place] [address] Emelina Nolan PA [address] [place], [place] Physical exam, routine (Primary Dx); Bilateral hip pain; Sjogren's syndrome, with unspecified organ involvement (CMS/HCC); Moderately severe depression; Screening for diabetes mellitus (DM) Social History Tobacco Use Types Packs/Day Years Used Date Smoking Tobacco: Former Cigarettes 1 36.2 0 1978 - 04/08/2014 Passive Smoke Exposure: Never Tobacco Cessation:Counseling Given: No Alcohol Use Standard Drinks/Week Comments No 0 [...] for your loved ones. For example, child day care teacher or elderly care for an older adult? [...] Sign Reading Time Taken Comments Blood Pressure 115/60 09/20/2024 2:11 PM EST Pulse 100 09/20/2024 2:11 PM EST Temperature 36.2 ??C (97.2 ??F) 09/20/2024 2:11 PM ES T Respiratory Rate - - Oxygen Saturation - - Inhaled Oxygen Concentration - - Weight 77.1 kg (170 lb) 09/20/2024 2:11 PM EST Height 161.3 cm (5' 3.5 ) 09/20/2024 2:11 PM EST Body Mass Index 29.64 09/20/2024 2:11 PM EST documented in this encounter Progress Notes * MARIEL Wong - 09/20/2024 2:30 PM EST CHIEF COMPLAINT: Annual Exam IDENTIFIER: Dayami Pool is a 59 y.o. old female. HPI: 59-year-old female with past medical history of Sjogren's syndrome, presenting for physical exam. She reports pain in both hips that radiate down to the legs, she does have an upcoming appointment with orthopedics. She was seen by neurologist in the past, had MRI done that showed herniated disc andspinal cord compression, she is requesting referral to neurosurgery. She was seen in the ER twice last week, she had told her manager lab that she was having leg pain and was told to be evaluated for DVT there was no sign of DVT on ultrasound. She returned to the ED ER to have a CT chest scan done to rule out clot, there were no findings. Reports she follows up with her manager lab for bronchiectasis ROS: GENERAL: Positive for fatigue HEENT: No changes in hearing or vision. No nosebleeds or other nasal problems NECK: Negative for lumps, goiter, pain, and significant neck swelling RESPIRATORY: SOB, CARDIOVASCULAR: chest pain with exertion BREAST: No lumps, discharge, pain or change in skin GI: Negative for abdominal discomfort, changes in bowel habits, blood in stool or black stools : Negative for dysuria, frequency, and incontinence CLERGY MEMBER: Negative for abnormal vaginal bleeding and abnormal vaginal discharge MUSCULOSKELETAL: Positive for joint pain bilateral hips SKIN: No lesions, rash, or itching PSYCH: No sleep disturbances, depression or major stressors HEMATOLOGY/LYMPHOLOGY: No prolonged bleeding, easy bruising, or swollen lymph nodes ENDOCRINE: Negative for cold or heat intolerance, polyuria, polydipsia and goiter NEURO: No persistent headache, fainting, seizures, strokes, TIAs, weakness, numbness or tingling The remainder of review of systems is noncontributory. PAST MEDICAL HISTORY: Patient Active Problem List Diagnosis Date Noted Neutrophilia 06/23/2022 SOCIAL HISTORY: Social History Tobacco Use Smoking status: Former Current packs/day: 0.00 Average packs/day: 1 pack/day for 36.2 years (36.2 ttl pk-yrs) Types: Cigarettes Start date: 1978 Quit date: 04/08/2014 Years since quittin.4 Passive exposure: Never Smokeless tobacco: Not on file Substance Use Topics Alcohol use: No FAMILY HISTORY: Family Status Relation Name Status Father at age 42 MGM 60s PGM 98 Aunt m 40s Alive Other 2 p aunts 60s Son (Not Specified) Mother Alive Sister (Not Specified) Son (Not Specified) Neg Hx (Not Specified) No partnership data on file Family History Problem Relation Name Age of [...] Hx Colon cancer Neg Hx ACTIVE MEDICATIONS: Outpatient Medications Marked as Taking for the 09/20/24 encounter (Office Visit) with MARIEL Wong Medication Sig Dispense Refill albuterol sulfate (ProAir [...] (two) times a day as neededfor anxiety. ezetimibe (ZETIA) 10 mg tablet Take 1 tablet (10 mg total) by mouth 1 (one) time each day. 90 each 0 FLUORIDE TOOTHPASTE DENT Dentifrices (FLUORIDE TOOTHPASTE DT) Place onto teeth. immune globulin (HIZENTRA) (20%) solution infusion Inject under the skin once a week. levothyroxine (SYNTHROID, LEVOTHROID) 50 mcg tablet TAKE 1 TABLET BY MOUTH EVERY DAY 90 tablet 0 meloxicam (MOBIC) 15 mg tablet Take 1 [...] by mouth 1 (one) time each day. ALLERGIES: Ciprofloxacin and Sulfate ion PHYSICAL EXAM: Blood pressure 115/60, pulse 100, temperature 36.2 ??C (97.2 ??F), temperature source Temporal, height 1.613 m (63.5 ), weight 77.1 kg (170 lb). Body mass index is 29.64 kg/m??. BMI is greater than 25.0 (above the normal range) - see Plan APPEARANCE: Alert and in no acute distress, overweight EYES: PERRLA, conjunctiva and sclera normal and normal fundal exam EARS: External ears normal. Canals clear. TMs normal. NOSE/SINUS: Nares normal. Septum midline. Mucosa normal. No drainage or sinus tenderness MOUTH/THROAT: mucous membranes are pink but dry, fissures noted on tongue. NECK: no nodules, goiter, or lymphadenopathy noted on exam. HEART: RRR with normal S1 and S2, no murmurs, no gallops, no JVD appreciated CHEST: non-tender LUNG: clear to auscultation bilaterally BREAST (FEMALE): Symmetrical, normal consistency without masses LYMPH NODES: grossly normal ABDOMEN: Bowel sounds normoactive, no bruits and soft, non-tender, without organomegaly or palpablemasses BACK: no pain to palpation EXTREMITIES: Extremities warm and well perfused without clubbing, cyanosis, or edema NEURO: Awake, alert and oriented x 3 and reflexes symmetrical SKIN: Skin color, texture, turgor normal. No rashes or lesions. LABS/IMAGING: No results found for: WBC , HGB , HCT , MCV Lab Results Component Value Date NA 141 08/13/2024 K 4.5 08/13/2024 CO2 25 08/13/2024 CL 109 08/13/2024 BUN 16 08/13/2024 ALKPHOS 98 08/13/2024 No results found for: CHOL , LDL , HDL , TRIG No results found for: TSH IMPRESSION: 1. Physical exam, routine Thyroid stimulating hormone with reflex to free t4 and free t3 Hemoglobin A1c Comprehensive metabolic panel 2. Bilateral hip pain Ambulatory referral to Neurosurgery 3. Sjogren's syndrome, with unspecified organ involvement (CMS/HCC) Complete blood count 4. Moderately severe depression PLAN: 1. Health maintenance: The patient presented for an evaluation of general health. As part of this visit, we reviewed the following issues, which are considered an essential part of preventative health in this age group: - Breast cancer screening, which includes clinical exam and mammograms annually - mammogram up-to-date - Colon cancer screening (colonoscopy every 10 years/annual FOBT plus flexi sigmoidoscopy every 5 years/double-contrast BE every 5 years/Cologuard every 3 years/Annual FOBT) - up to date - Cervical cancer testing every 1-5 years - patient is up-to-date - Screening for depression - care for depression is ongoing - Screening for Type 2 diabetes mellitus in those with hypertension and/or hyperlipidemia - sjogren- sees rheumatology - hip pain, has upcoming appointment with orthopedics, referral for neurosurgery placed at patient request - will call patient with results from blood work ordered today Orders Placed This Encounter Procedures Thyroid stimulating hormone with reflex to free t4 and free t3 Standing Status: Future Number of Occurrences: 1 Standing Expiration Date: 09/20/2025 Complete blood count Standing Status: Future Number of Occurrences: 1 Standing Expiration Date: 09/20/2025 Hemoglobin A1c Standing Status: Future Number of Occurrences: 1 Standing Expiration Date: 09/20/2025 Comprehensive metabolic panel Standing Status: Future Number of Occurrences: 1 Standing Expiration Date: 09/20/2025 Ambulatory referral to Neurosurgery Standing Status: Future Standing Expiration Date: 09/20/2025 Referral Priority: Routine Referral Type: Consultation Referral Reason: Consult and Treat Requested Specialty: Neurosurgery Number of Visits Requested: 1 MARIEL Wong on 09/20/2024 at 4:35 PM EST documented in this encounter Plan of Treatment Upcoming Encounters Date Type Department Care Team (Late st Contact Info) Description 11/11/2024 1:20 PM EDT Office Visit Gastroenterology - [address] [phone] Dorcas Lozoya PA [address] [address] 02/22/2025 2:30 PM EDT Office Visit [facility] Hematology Oncology [address] [place] [phone] Jacky Ramsey MD [address] [place] [phone] 03/02/2025 3:50 PM EDT Appointment Radiology Department [address] [address] Scheduled Referrals Name Type Priority Associated Diagnoses Order Schedule Ambulatory referral to Neurosurgery Outpatient Referral Routine Bilateral hip pain 1 Occurrences starting 09/20/2024 until 09/20/2025 documented as of this encounter Results * (ABNORMAL) Comprehensive metabolic panel (09/20/2024 3:26 PM EST) Sodium 138 133 - 145 mmol/L LAB CHEMISTRY METHOD 09/20/2024 6:00 PM EST [facility] Potassium 3.9 3.5 - 5.5 mmol/L LAB CHEMISTRY METHOD 09/20/2024 6:00 PM [facility] Chloride 106 96 - 110 mmol/L LAB CHEMISTRY METHOD 09/20/2024 6:00 PM [facility] CO2 26 21 - 32 mmol/L LAB CHEMISTRY METHOD 09/20/2024 6:00 PM [facility] Anion Gap 6 3 - 11 LAB CHEMISTRY METHOD 09/20/2024 6:00 PM [facility] Glucose 143(H) 70 - 100 mg/dL LAB CHEMISTRY METHOD 09/20/2024 6:00 PM [facility] BUN 18 5 - 25 mg/dL LAB CHEMISTRY METHOD 09/20/2024 6:00 PM [facility] Creatinine 1.05 0.50 - 1.10 mg/dL LAB CHEMISTRY METHOD 09/20/2024 6:00 PM [facility] eGFR 61 >=60 mL/min/1. 73m2 LAB CHEMISTRY METHOD 09/20/2024 6:00 PM [facility] Comment:Calculation based on the??Chronic Kidney Disease Epidemiology Collaboration (CKD-EPI) equation refit??without adjustment for race. BUN/Creatinine Ratio 17.1 LAB CHEMISTRY METHOD 09/20/2024 6:00 PM [facility] Calcium 9.0 8.5 - 10.5 mg/dL LAB CHEMISTRY METHOD 09/20/2024 6:00 PM [facility] AST (SGOT) 17 10 - 42 unit/L LAB CHEMISTRY METHOD 09/20/2024 6:00 PM [facility] ALT (SGPT) 22 10 - 60 unit/L LAB CHEMISTRY METHOD 09/20/2024 6:00 PM [facility] Alkaline Phosphatase 105 42 - 121 unit/L LAB CHEMISTRY METHOD 09/20/2024 6:00 PM [facility] Total Protein 6.8 6.0 - 8.0 g/dL LAB CHEMISTRY METHOD 09/20/2024 6:00 PM EST [facility] Albumin 3.7 3.2 - 5.0 g/dL LAB CHEMISTRY METHOD 09/20/2024 6:00 PM [facility] Total Bilirubin 0.3 0.0 - 1.4 mg/dL LAB CHEMISTRY METHOD 09/20/2024 6:00 PM EST [facility] Blood Venous blood specimen / Unknown Venipuncture / Unknown 09/20/2024 3:26 PM EST 09/20/2024 3:26 PM EST Emelina FLOYD LAB BLOOD ORDERABLES Final Resul t Performing Organization Address [facility]/ZIP Co de Phone Number [facility] [address] [place] [address], [place] [phone] * Hemoglobin A1c (09/20/2024 3:26 PM EST) Hemoglobin A1C 6.0 <6.5 % LAB CHEMISTRY METHOD 09/20/2024 9:48 PM [facility] Mean Bld Glu Estim. 126 mg/dL LAB CHEMISTRY METHOD 09/20/2024 9:48 PM [facility] Blood Venous blood specimen / Unknown Venipuncture / Unknown 09/20/2024 3:26 PM EST 09/20/2024 3:26 PM EST Emelina FLOYD LAB BLOOD ORDERABLES Final Resul t Performing Organization Address City/[facility]/ZIP Co de Phone Number [facility] [address] [place] [address], [place] [phone] * (ABNORMAL) Complete blood count (09/20/2024 3:26 PM EST) WBC 17.5(H) 4.8 - 10.8 K/mcL LAB HEMETOLOGY METHOD 09/20/2024 5:53 PM EST [facility] RBC 4.90(H) 3.80 - 4.80 M/mcL LAB HEMETOLOGY METHOD 09/20/2024 5:53 PM [facility] Hemoglobin 14.7 11.5 - 16.0 g/dL LAB HEMETOLOGY METHOD 09/20/2024 5:53 PM [facility] Hematocrit 44.6 35.0 - 47.0 % LAB HEMETOLOGY METHOD 09/20/2024 5:53 PM [facility] MCV 90.8 79.0 - 98.0 FL LAB HEMETOLOGY METHOD 09/20/2024 5:53 PM [facility] MCH 29.9 27.0 - 32.0 pcg LAB HEMETOLOGY METHOD 09/20/2024 5:53 PM [facility] MCHC 33.0 32.0 - 37.0 g/dL LAB HEMETOLOGY METHOD 09/20/2024 5:53 PM [facility] RDW 14.3 11.0 - 15.0 % LAB HEMETOLOGY METHOD 09/20/2024 5:53 PM [facility] Platelets 339 130 - 400 K/mcL LAB HEMETOLOGY METHOD 09/20/2024 5:53 PM [facility] MPV 10.6 7.0 - 11.0 FL LAB HEMETOLOGY METHOD 09/20/2024 5:53 PM [facility] NRBC 0.0 <1.0 % LAB HEMETOLOGY METHOD 09/20/2024 5:53 PM [facility] NRBC Absolute 0.00 <0.10 K/mcL LAB HEMETOLOGY METHOD 09/20/2024 5:53 PM [facility] Blood Venous blood specimen / Unknown Venipuncture / Unknown 09/20/2024 3:26 PM EST 09/20/2024 3:26 PM EST us Emelina Space Pencil HI LAB BLOOD ORDERABLES Final Resul t Performing Organization Address [facility]/ZIP Co de Phone Number [facility] [address] [place] [address], [place] [phone] * (ABNORMAL) Thyroid stimulating hormone with reflex to free t4 and free t3 (09/20/2024 3:26 PM EST) TSH 4.62(H) 0.40 - 4.00 mcIU/mL LAB CHEMISTRY METHOD 09/20/2024 6:10 PM EST [facility] Blood Venous blood specimen / Unknown Venipuncture / Unknown 09/20/2024 3:26 PM EST 09/20/2024 3:26 PM EST Emelina Space Pencil HI LAB BLOOD ORDERABLES Final Resul t Performing Organization Address [facility] Co de Phone Number [facility] [address] [place] [address], [place] [phone] documented in this encounter Visit Diagnoses Diagnosis Physical exam, routine- Primary Bilateral hip pain Pain in joint, pelvic region and thigh Sjogren's syndrome, with unspecified organ involvement (CMS/HCC) Moderately severe depression Screening for diabetes mellitus (DM) Screening for diabetes mellitus documented in this encounter Discontinued Medications Medication Sig Discontinue Reason Start Date End Da te acetaminophen (TYLENOL) 325 mg tablet Take 2 tablets (650 mg total) by mouth every 6 (six) hours as needed for pain. 09/20/2024 documented as of this encounter Additional Health Concerns Assessment Noted Time PHQ-9 Depression Total Score: 025 2:16 PM EST documented as of this encounter Care Teams Plunger Scoop Operator Relationship Specialty Start Date End Date Bree Livingston MD [address] [place] [address] PCP - General 06/01/03 documented as of this encounter
--- OUTSIDE RECORDS SUMMARY | 2024-10-22 13:17 | XMS_ITS | Clinical Summary ---
Author Organization [facility] Address [phone] [facility] [place] [address] Care Team Providers Care Pigment Processor Name Role Phone Murray Livingston MD Primary Care Provider + Allergies Active Allergy Reactions Criticality Noted Date Comments Ciprofloxacin 10/16/2005 Hydroxychloroquine 06/29/2018 Retinal damage Penicillin V Potassium 10/16/2005 Sulfasalazine 10/16/2005 Medications Medication Sig Dispensed Refills Start Date End Date Status aspirin 325 MG tablet Take 325 mg by mouth. Active azaTHIOprine (IMURAN) 50 mg tablet Take 25 mg by mouth. 06/29/2018 Active cevimeline (EVOXAC) 30 mg capsule Take 30 mg by mouth. 04/28/2017 Active cholecalciferol, vitamin D3, 1,000 unit capsule Take by mouth. Active clonazePAM (KLONOPIN) 1 MG tablet Take 1 mg by mouth. Active doxycycline hyclate (VIBRAMYCIN) 100 MG capsule Take 100 mg by mouth. Active estradiol (ESTRACE) 0.01 % (0.1 mg/gram) vaginal cream Place 1 g vaginally. Active estradiol-norethindron e (COMBIPATCH) 0.05-0.14 mg/[address] 1 patch onto the skin. 07/29/2016 Active levothyroxine (SYNTHROID, LEVOTHROID) 50 MCG tablet TAKE 1 TABLET EVERY DAY 06/29/2018 Active lifitegrast (XIIDRA) 5 % Dpet Apply 2 drops to eye. 11/18/2016 Active linaclotide (LINZESS) 145 mcg Cap TAKE ONE CAPSULE BY MOUTH EVERY MORNING 01/29/2018 Active loteprednol (LOTEMAX) 0.5 % ophthalmic suspension 04/20/2018 Active methotrexate sodium, PF, 25 mg/mL injection Inject 20 mg as directed. 05/15/2018 Active raNITIdine (ZANTAC) 150 MG capsule TAKE 1 CAPSULE BY MOUTH TWICE A DAY 02/26/2018 Active tuberculin-allergy syringes 1 mL 26 gauge x 3/8 Syrg Inject 0.4 mL under the skin. 03/27/2018 Active Active Problems No known active problems Family History Medical History Relation Comments Depression Father Diabetes Father Pancreatic cancer Father Breast cancer Maternal Grandmother Appendicitis Mother Hyperlipidemia Mother Schizoaffective disorder Mother Thyroid disease Mother Breast cancer Paternal Grandmother Depression Son Relation Status Comments Father Maternal Grandmother Mother Alive Paternal Grandmother Son Social History Tobacco Use Types Packs/Day Years Used Date Smoking Tobacco: Never Smokeless Tobacco: Never Education Answer Date Recorded Are you interested in more education? Not on kellie e 12/27/2022 Are you concerned about learning? Not on file 12/27/2022 No 12/27/2022 No 12/27/2022 Digital Access Answer Date Recorded No 01/28/2023 No 01/28/2023 No 01/28/2023 Reliable internet access at home? Not on file 01/28/2023 Device with a working camera? Not on file Sex and Gender Information Value Date Recorded Sex Assigned at Not on file Gender Identity Not on file Sexual Orientation Not on file Plan of Treatment Health Maintenance Due Date Last Done Comments ALKALINE PHOSPHATASE LEVEL 1963 CREATININE LEVEL 1963 LIPID PANEL 1963 TSH LEVEL 1963 DEPRESSION SCREENING 1975 PNEUMOCOCCAL VACCINES (50+ years) (1 of 2 - PCV) 1982 ZOSTER VACCINES (1 of 2) 1982 PAP SMEAR 01/16/1984 SMOKING STATUS SCREENING (Once After 26 Yrs) 1989 MAMMOGRAM 2003 COLOGUARD 01/16/2008 COLONOSCOPY 01/16/2008 COLORECTAL CANCER SCREENING 01/16/2008 FIT TEST 01/16/2008 FOBT 01/16/2008 SIGMOIDOSCOPY 01/16/2008 VIRTUAL COLONOSCOPY 01/16/2008 COVID-19 VACCINE (3 - Pfizer risk series) 02/06/2021 01/09/2021, 12/19/2020 RSV VACCINE (1 - Risk 60-74 years 1-dose series) 2023 INFLUENZA VACCINE (#1) 2024 1, 05/08/2020, 05/28/2019, Additional history exists Adult Td,Tdap Booster 10/17/2027 10/17/2017, 008 HEPATITIS B SCREENING Completed 07/02/2018 HEPATITIS C SCREENING Completed 07/02/2018 HIV ONE-TIME SCREENING (18-65 YEARS) Completed 07/02/2018 HEPATITIS A VACCINES Aged Out No long er eligible based on patient's age to complete this topic HIB VACCINES Aged Out No longer eligi ble based on patient's age to complete this topic MENINGOCOCCAL VACCINES (ACWY) Aged Out No longer eligible based on patient's age to complete this topic Medical Devices Not on file Procedures Procedure Name Priority Date/Time Associated Diagnosis Comments HEPATITIS C ANTIBODY WITH REFLEX TO HCV, RNA QUANTITATIVE REAL-TIME PCR Routine 07/02/2018 11:33 AM EDT Dry eye syndrome of lacrimal gland, bilateral HEPATITIS B SURFACE ANTIGEN Routine 07/02/2018 11:33 AM EDT Dry eye syndrome of lacrimal gland, bilateral from Last 3 Months or Most Recently Relevant to Health Maintenance Results * Hepatitis C Antibody with Reflex to HCV, RNA quantitative Real-Time PCR (07/02/2018 11:33 AM EDT) HCV Ab Nonreactive Nonreactive [facility] Comment: (NOTE) Test performed by: ?[facility] ?[id number] ?[place] [address] Director: Amol Rockwell M.D., Ph.D.,Director of Laboratories SIGNAL TO CUT OFF 0.00 <1.00 ratio [facility] Comment: (NOTE) HCV antibody was Nonreactive. There is no laboratory evidence of HCV infection. In most cases, no further action is required. However, if recent HCV exposure is suspected, a test for HCV RNA (test code 27255) is suggested. For additional information please refer to http://education.PinkUP/faq/HOK85i7 (This link is being provided for informational/ educational purposes only.) Test performed by: ?[employer] ?[id number] ?[place], [place] Director: Amol Rockwell M.D., Ph.D.,Director of Laboratories Additional Testing Not indicated [facility] Comment: (NOTE) Test performed by: ?[employer] ?[id number] ?[place], [place] Director: Amol Rockwell M.D., Ph.D.,Director of Laboratories 07/02/2018 11:3 3 AM EDT 07/02/2018 12:34 PM EDT Gustavo Rivera MD LAB BLOOD ORDERABLES Performing Organization Address [facility] Co de Phone Number [address] * Hepatitis B surface antigen (07/02/2018 11:33 AM EDT) HBV Surface Ag Nonreactive Nonreactive [facility] Comment: (NOTE) Test performed by: ?[employer] ?[id number] ?[place], [place] Director: Amol Rockwell M.D., Ph.D.,Director of Laboratories CONFIRMATION REPORT SEE COMMENT [facility] Comment: (NOTE) Not required according to the current package insert. Test performed by: ?[employer] ?[id number] ?[place], [place] Director: Amol Rockwell M.D., Ph.D.,Director of Laboratories 07/02/2018 11:3 3 AM EDT 07/02/2018 12:34 PM EDT Gustavo Rivera MD LAB BLOOD ORDERABLES Performing Organization Address City/[facility]/ZIP Co de Phone Number [facility] [address] [place] [address], [facility] from Last 3 Months or Most Recently Relevant to Health Maintenance Care Teams Pigment Processor Relationship Specialty Start Date End Date Murray Livingston MD [address] [place] [id number] PCP - General Internal Medicine 04/21/18 Additional Source Comments The information contained in this document represents components of the legal health record. It is not the complete legal health record.[facility]
--- OUTSIDE RECORDS SUMMARY | 2024-10-22 13:17 | XMS_ITS | Encounter Summary ---
Author Organization [facility] Address [address] [place] [address] Care Team Providers Care Arboreal Scientist Name Role Phone Murray Livingston Primary Care Provider [phone] Reason for Referral * Physical Therapy (Routine) - Pending Review Specialty Diagnoses / Procedures Referred By Delilahac t Referred To Contact Physical Therapy Diagnoses Intervertebral disc disorder with radiculopathy of lumbar region Ayo Cox MD [address] [place], [place] [id number] Phone: tel: fax: Referral ID Status Reason Start Date Expiration Date Visits Requested Visits Authorized [id number] Pending Review Specialty Services Required 09/27/2024 03/29/2026 6 6 Reason for Visit * Reason Comments Pain * Consultation (Routine) - Authorized Specialty Diagnoses / Procedures Referred By Feroz t Referred To Contact Orthopaedic Surgery Diagnoses B/L hip pain [facility] [address] [place] [id number] Phone: tel: fax: Referral ID Status Reason Start Date Expiration Date V isits Requested Visits Authorized [id number] Authorized 08/17/2024 02/16/2026 6 6 Encounter Details Date Type Department Care Team (Latest Contact Info) Description 09/27/2024 1:40 PM EST Office Visit [facility] [address] [place], [place] [id number] Ayo Cox MD [address] [place] [id number] 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); Lumbar radiculopathy Social History Tobacco Use Types Packs/Day Years Used Date Smoking Tobacco: Former Cigarettes Passive Smoke Exposure: Never Smokeless Tobacco: Never Alcohol Use Standard Drinks/Week [...] on file documented as of this encounter Progress Notes * Ayo Cox MD - 09/27/2024 1:42 PM EST DAKOTA Pool is a 59 y.o. female.presenting with multiyear history of low back pain bilateral hip pain bursitis and Sjogren's syndrome. This is greatly affected her quality of life and actives of daily living. She does not work and is caring for her child bending lifting twisting actives of daily living all affected it is difficult for her to sleep transition from sitting to standing and work. She does not work currently. She also has not undergone any physical therapy for her back this is bothered her on and off for many years and is somewhat of a poor historian in terms of what she has done in the past imaging studies demonstrate multilevel degenerative changes for mental narrowing disc b ulging and facet arthropathy. She also has complaints of bilateral hip pain due to bilateral hip osteoarthritis that radiates into her groin it is difficult for her to sleep and get around and meet her actives of daily living her pain today is a 10 out of 10 and she is never pain-free she is here for evaluation for low back pain and lumbar radiculopathy Past Medical History: Diagnosis Date Disease of thyroid gland Lung disease Mental disorder Family History Problem Relation Age of Onset Cancer Father Social History Socioeconomic History Marital status: Spouse name: None Number of children: None Years of education: None Highest education level: None Occupational History Occupation: retired Tobacco Use Smoking status: Former Types: Cigarettes Passive exposure: Never Smokeless tobacco: Never Vaping Use Vaping status: Never Used Substance and Sexual Activity Alcohol use: Not Currently Drug use: Never Sexual activity: Defer Other Topics Concern None Social History Narrative None Social Drivers of Health Food: Not on file Transportation: Not on file Ciprofloxacin, Adhesive, Hydroxychloroquine, Nickel, Sulfa (sulfonamide antibiotics), Sulfasalazine, and Sulfate ion Current Outpatient Medications: Advair Diskus 250-50 mcg/dose inhaler, SMARTSI unspecified By Mouth Twice Daily, Disp: , Rfl: albuterol sulfate 90 mcg/actuation aerosol powdr breath activated, Inhale by mouth., Disp: , Rfl: aspirin 81 mg EC tablet, Take 81 mg by mouth once a day., Disp: , Rfl: aspirin tablet 325 mg, Take 325 mg by mouth once a day., Disp: , Rfl: Botox 100 unit recon soln injection, SMARTSI Unit(s) IM Every 3 Months, Disp: , Rfl: cevimeline (EVOXAC) 30 mg capsule, SMARTSI Capsule(s) By Mouth 3 Times Daily, Disp: , Rfl: cholecalciferol (VITAMIN D3) 1,000 unit tablet, Take 25 mcg by mouth once a day., Disp: , Rfl: CHOLECALCIFEROL, VITAMIN D3, ORAL, Take by mouth once a day., Disp: , Rfl: clonazePAM (KlonoPIN) 1 mg tablet, SMARTSI Tablet(s) By Mouth 3 Times Daily PRN, Disp: , Rfl: CombiPatch 0.05-0.14 mg/24 hr, SMARTSI Patch(s) Topical Twice a Week, Disp: , Rfl: cyclobenzaprine (FLEXERIL) 5 mg tablet, Take 1 tablet (5 mg total) by mouth at bed time., Disp: 30 tablet, Rfl: 2 doxycycline monohydrate (ADOXA) 100 mg tablet, Take 0.5 tablets (50 mg total) by mouth once a day.,Disp: 15 tablet, Rfl: 1 fluoride, sodium, 1.1 % paste, BRUSH NIGHTLY AND DO NOT RINSE., Disp: , Rfl: levothyroxine (SYNTHROID, LEVOTHROID) 50 mcg tablet, SMARTSI Tablet(s) By Mouth Daily, Disp: , Rfl: loteprednol (Alrex) 0.2 % drops,suspension, Instill 1 drop into both eyes 3 times a day for 10 days, THEN 1 drop 2 times a day for 10 days, THEN 1 drop once a day for 10 days., Disp: 5 mL, Rfl: 2 Lubricant Eye, propyl glycol, 0.6 % drops, INSTILL 1 DROP INTO AFFECTED EYE(S) 4 TIMES A DAY, Disp:15 mL, Rfl: 5 meloxicam (MOBIC) 15 mg tablet, Take 15 mg by mouth once a day., Disp: , Rfl: mupirocin (BACTROBAN) 2% ointment, SMARTSIG:Both Nares Every Night, Disp: , Rfl: pantoprazole DR (PROTONIX) 40 mg tablet, Take 1 tablet by mouth once a day., Disp: , Rfl: perfluorohexyloctane/PF (MIEBO OPHTHALMIC), Instill 1 drop into affected eye(s) 2 (two) times a day., Disp: , Rfl: salmeteroL (SEREVENT DISKUS) 50 mcg/dose inhaler, Inhale by mouth., Disp: , Rfl: topiramate (TOPAMAX) 25 mg tablet, SMARTSI Tablet(s) By Mouth Daily, Disp: , Rfl: Tyrvaya 0.03 mg/spray spray, metered, non-aerosol, SMARTSI [place](s) Both Nares Twice Daily, Disp: , Rfl: Vitamin D3 25 mcg (1,000 unit) capsule, SMARTSI Capsule(s) By Mouth Daily, Disp: , Rfl: Review of Systems Musculoskeletal: Positive for arthralgias, back pain, foot pain, gait problem, knee pain and myalgias. All other systems reviewed and are negative. Punctal Occlusion by Plug, Silicone - OS - Left Eye Result Date: 09/07/2024 Narrative: Time Out 09/07/2024. 2:34 PM. Patient ID confirmed Name and with patient. Verbal consent obtained? Yes. Written consent obtained? Yes. Risk and benefits discussed? Yes. Consent given by patient. Patient states understanding of procedure being performed? Yes. Patient's understanding of procedure matches consent? Yes. [place] Protocol The procedure is not an emergent situation. The procedure being consented to matches the procedure being performed. All relevant documents/tests are correctly identified, labeled and matched to the patient. Relevant tests/imaging studies are available and have been reviewed. The correct site has been marked. All required blood products, implants, devices and special equipment are available. A timeout was called prior to the procedure. Punctal Plug Punctal plug was silicone. Plug size was 0.6 mm. Post-op The patient tolerated the procedure well. There were no complications. Color Fundus Photography - OU - Both Eyes Result Date: 09/07/2024 Narrative: Normal disc and macula in both eyes No signs of tears or detachments Syneresis in left eye @MRI@ Objective There were no vitals filed for this visit. Physical Exam Musculoskeletal: Comments: HEENT normocephalic atraumatic patient very slow to transition from sitting to standing walks with an antalgic gait favoring the right leg decreased right hip flexion strength of 3 out of 54 out of 5 on the left positive straight leg raise on the right duplicating both back pain and paindown her right leg at 30 degrees equivocal on the left up to 50 degrees not duplicating symptoms pat ient very deconditioned able to forward flex almost able to touch floor with moderate extension with slight facet loading but no severe pain moderate increased bilateral lumbar paraspinal minus muscle tone of note patient somewhat anxious and nervous during interview and examination strength is 5 out of 5 otherwise in upper lower extremities other than as noted above Assessment & Plan this a 59-year-old woman with decades long history of low back pain lumbar radiculopathy as well as other medical comorbidities. I reviewed the results of the MRI and discussed treatment plans and options she seems somewhat hesitant to undergo a lumbar epidural steroid injection. I do feel that physical therapy evaluation and treatment would be most beneficial since she is extremely deconditioned and anxious. I will send her for physical therapy and she will return for follow-up appointment in 4 to 6 weeks time to review if she would like to decide on a lumbar epidural steroid injection. She also had questions regarding meeting a spine surgeon for possible surgery but I have informed her we should start with the basics but if I am unable to help her I be more than happy to refer her to one of our excellent spine surgeons. All questions were answered she agrees and understands thank you for allowing me to participate in the care of this woman. Ayo Cox M.D. Shipping Support Clerk Of Anesthesiology & Pain Medicine [facility] [employer] documented in this encounter Plan of Treatment Upcoming Encounters Date Type Department Care Team (Late st Contact Info) Description 11/01/2024 2:00 PM EST Follow-Up [facility] [address] [place] [address] [employer] Instructor: Michell Mcghee MD [address] [place] [phone] 01/26/2025 1:15 PM EDT Clinical Support [address] [address] 01/26/2025 1:30 PM EDT Follow-Up [address] [address] Celsa Sanford MD [address] [place] [phone] 03/08/2025 2:15 PM EDT Follow-Up [address] [address] Felix Prakash MD [address] [place] [phone] Scheduled Referrals Name Type Priority Associated Diagnoses Orde r Schedule Ambulatory referral to Physical Therapy Outpatient Referral Routine Intervertebral disc disorder with radiculopathy of lumbar region Expected: 09/27/2024, Expires: 03/27/2025 documented as of this encounter Visit Diagnoses Diagnosis Intervertebral disc disorder with radiculopathy of lumbar region- Primary Lumbar radiculopathy Thoracic or lumbosacral neuritis or radiculitis, unspecified documented in this encounter Care Teams Arboreal Scientist Relationship Specialty Start Date End Date Murray Livingston PCP - General Internal Medicine 02/24/23 documented as of this encounter
--- OUTSIDE RECORDS SUMMARY | 2024-10-22 13:18 | XMS_ITS | Clinical Summary ---
Author Organization [facility] Address [address] [place] [address] Care Team Providers Care Career Services Officer Name Role Phone Murray Livingston Primary Care Provider [phone] Allergies Active Allergy Reactions Criticality Noted Date Comments Adhesive Rash 03/03/2023 Ciprofloxacin Rash,Swelling High 10/16/2005 IV administered, pain rash immediately after administration IV administered, pain rash immediately after administration Hydroxychloroquine Unknown 06/29/2018 Retinal damage Nickel Rash 01/20/2023 Sulfa (Sulfonamide Antibiotics) Rash 10/16/2005 Sulfasalazine Unknown 10/16/2005 Sulfate Ion Unknown 06/18/2022 Medications aspirin tablet 325 mg Take 325 mg by mouth once a day. Active meloxicam (MOBIC) 15 mg tablet Take 15 mg by mouth once a day. Active CHOLECALCIFEROL , VITAMIN D3, ORAL Take by mouth once a day. Active albuterol sulfate 90 mcg/actuation aerosol powdr breath activated Inhale by mouth. Active aspirin 81 mg EC tablet Take 81 mg by mouth once a day. Active cevimeline (EVOXAC) 30 mg capsule SMARTSI Capsule(s) By Mouth 3 Times Daily Active cholecalciferol (VITAMIN D3) 1,000 unit tablet Take 25 mcg by mouth once a day. Active Vitamin D3 25 mcg (1,000 unit) capsule SMARTSI Capsule(s) By Mouth Daily Active clonazePAM (KlonoPIN) 1 mg tablet SMARTSI Tablet(s) By Mouth 3 Times Daily PRN Active CombiPatch 0.05-0.14 mg/24 hr SMARTSI Patch(s) Topical Twice a Week 3 Active levothyroxine (SYNTHROID, LEVOTHROID) 50 mcg tablet SMARTSI Tablet(s) By Mouth Daily Active mupirocin (BACTROBAN) 2% ointment SMARTSIG:Both Nares Every Night [address] (PROTONIX) 40 mg tablet Take 1 tablet by mouth once a day. 3 Active salmeteroL (SEREVENT DISKUS) 50 mcg/dose inhaler Inhale by mouth. Active fluoride, sodium, 1.1 % paste BRUSH NIGHTLY AND DO NOT RINSE. 3 Active Botox 100 unit recon soln injection SMARTSI Unit(s) IM Every 3 Months 3 Active Advair Diskus 250-50 mcg/dose inhaler SMARTSI unspecified By Mouth Twice Daily 3 Active cyclobenzaprine (FLEXERIL) 5 mg tablet Take 1 tablet (5 mg total) by mouth at bed time. 30 tablet 2 3 Active topiramate (TOPAMAX) 25 mg tablet SMARTSI Tablet(s) By Mouth Daily 3 Active perfluorohexylo ctane/PF (MIEBO OPHTHALMIC) Instill 1 drop into affected eye(s) 2 (two) times a day. Active Tyrvaya 0.03 mg/spray spray, metered, non-aerosol SMARTSI [place](s) Both Nares Twice Daily 4 Active doxycycline monohydrate (ADOXA) 100 mg tablet Take 0.5 tablets (50 mg total) by mouth once a day. 15 tablet 1 5 11/07/19 25 Active Lubricant Eye, propyl glycol, 0.6 % drops INSTILL 1 DROP INTO AFFECTED EYE(S) 4 TIMES A DAY 15 mL 5 5 Active loteprednol (Alrex) 0.2 % drops,suspensio n Instill 1 drop into both eyes 3 times a day for 10 days, THEN 1 drop 2 times a day for 10 days, THEN 1 drop once a day for 10 days. 5 mL 2 5 10/07/19 25 Active Problems Problem Noted Date Diagnosed Date Total body pain 07/01/2023 Overweight (BMI 25.0-29.9) 01/28/2023 Autonomic dysfunction 01/20/2023 Neutrophilia 06/23/2022 Wheezing 01/31/2022 Constipation 02/08/2020 Hematuria 06/16/2018 Incontinence of urine 08/23/2016 Overview (03/03/2023): Urge incontinence. Botox injection 08/16 Bladder stimulator Sjogren's syndrome 03/15/2016 Overview (03/03/2023): Onset approx 2011. Positive KAMALJIT, positive Sjogren's antibody and sicca complaints with dryness of the eyes and mouth. Previously on methotrexate PO but stopped in 2017 due to GI intolerance. Then on methotrexateSC HCQ 200 mg daily stopped because of nausea.08/18 Azathioprine also stopped because of nausea.09/19 Methotrexate caused hair loss, not helpful - stopped 03/19 Hyperlipidemia 10/26/2013 Overview (03/03/2023): Improved 10/19. Risk calculator 5% if not smoking. 10% if smoking. Intol Lipitor Spinal stenosis, lumbar claritza on, without neurogenic claudication 11/27/2009 Overview (03/03/2023): MRI 11/08--multilevel disc bulging and developmental narrowing, worst at L4-5 Spinal Stimulator removed 12/20 Diverticulitis 06/21/2009 Hypothyroidism 06/21/2009 Overview (03/03/2023): Hypothyroidism Thyroidectomy Vision disturbance 03/23/2009 Overview (03/03/2023): 03/09--blurry vision bilat x 4 min Mri, carotid U/s unremarkable Light headed 09/08/2007 Overview (03/03/2023): 07/08 following weight loss, orthostatis--Holter (pt did not return message to schedule) Syncope 11/06--hosp--CT, tele neg Echo 01/06--normal--cardiology Holter--episode SVT-->EP IMO update 11/16- normal carotid sono 12/17- holter rare PAC/PVC, no pauses, could not correlate sx Thyroid nodule 04/22/2007 Overview (03/03/2023): 04/07--neg bx, 02/06 isthmus during surgery, removed Thyroidectomy (right lobe and isthmus) 02/06 Hypersomnia with sleep apnea 11/27/2006 Overview (05/06/2023): O update Cerebral arterial aneurysm 05/09/2006 Overview (05/06/2023): Cerebral Artery Aneurysm 2005--opthalmic artery--coil at [place] 2007 recurrence of aneurism despite stable coil. 03/13 attempted implantation of stent unsuccessful. 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 [place] 2007 recurrence of aneurism despite stable coil. 03/13 attempted implantation of stent unsuccessful. 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 12/18: repeat angiogram - [place] Carpal tunnel syndrome 01/02/2006 Overview (03/03/2023): Right by EMG 04/06 (left normal) Depression 01/02/2006 Diverticulitis of colon without hemorrhage 01/02 Overview (03/03/2023): 2002--partial colectomy GERD without esophagitis 01/02/2006 Overview (03/03/2023): 08/08/2016: EGD normal, not on treatment with PPI or H2 saurabh medications. EGD 07/21 Polycystic ovaries 01/02/2006 Encounters Date Type Department Care Team Description 10/08/[address] [address] Felix Prakash MD 09/27/2024 1:40 PM EST Office Visit [facility] [address] [place] [address] Ayo Cox MD 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); Lumbar radiculopathy 09/07/2024 1:15 PM EST Follow-Up [address] [address] Felix Prakash MD PVD (posterior vitreous detachment), bilateral (Primary Dx); Sjogren's syndrome with keratoconjunctivitis sicca (HCC); Keratoconjunctivitis sicca; Pseudophakia of both eyes; MGD (meibomian gland dysfunction) 09/07/[address] [address] Felix Prakash MD 08/06/2024 3:00 PM EST Follow-Up [address] [address] Megan Hoff MD History of keratoconjunctivitis sicca in Sjogren's syndrome (Primary Dx) from Last 3 Months Family History Medical History Relation Name Comments Cancer Father Relation Name Status Comments Father Mother Alive Social History Tobacco Use Types Packs/Day Years Used Date Smoking Tobacco: Former Cigarettes Passive Smoke Exposure: Never Smokeless Tobacco: Never Tobacco Cessation:Counseling Given: Not Answered Alcohol Use Standard Drinks/Week Comments Not Currently [...] Sign Reading Time Taken Comments Blood Pressure 102/69 03/02/2024 1:28 PM EDT Pulse 98 03/02/2024 1:28 PM EDT Temperature 36.7 ??C (98.1 ??F) 03/02/2024 1:28 PM ED T Respiratory Rate 20 06/18/2023 10:41 AM EDT Oxygen Saturation 99% 06/18/2023 10:41 AM EDT Inhaled Oxygen Concentration - - Weight 72.6 kg (160 lb) 03/02/2024 1:28 PM EDT Height 161.3 cm (5' 3.5 ) 03/02/2024 1:28 PM EDT Body Mass Index 27.9 03/02/2024 1:28 PM EDT Plan of Treatment Upcoming Encounters Date Type Department Care Team (Late st Contact Info) Description 11/01/2024 2:00 PM EST Follow-Up [facility] [address] [place] [id number] Behavioral Health Therapist: Michell Mcghee MD [address] [place] [phone] 01/26/2025 1:15 PM EDT Clinical Support [facility] [address] [address] 01/26/2025 1:30 PM EDT Follow-Up [address] [address] Celsa Sanford MD [address] [place] [phone] 03/08/2025 2:15 PM EDT Follow-Up [facility] [address] [address] Felix Prakash MD [address] [place] [phone] Health Maintenance Due Date Last Done Comments Cervical Cancer Screening 1965 HPV and Pap Smear 1965 Pap Smear [address] Lung Cancer Screening (Baseline) 2013 Zoster Vaccines (2 of 2) 01/23/2022 11/28/2021 COVID-19 Vaccine (3 - season) 2024 01/09/2021, 12/19/2020 Alcohol/Substance Use Screening 09/01/2024 Depression Evaluation 09/01/2024 Social Drivers of Health Annual Screening 09/01/2024 DTaP,Tdap,and Td Vaccines (3 - Td or Tdap) 10/17/2027 10/17/2017, 03/11/2008 Hepatitis B Vaccines Completed 07/11/2017, 09/06/2008, 04/15/2008, Additional history exists HIV Screening Completed 07/02/2018 Pneumococcal Vaccine: 50+ Years Completed 11/28/2021 Pneumococcal Vaccine: Pediatric (0-5 Years) and At-Risk Patients (6-50 Years) Aged Out 11/28/2021 No longer eligible based on patient's age to complete this topic Hepatitis C Screening Completed 04/22/2023, 018 RSV Vaccine (60+ years old and patients) Completed 04/29/2023 Influenza Vaccine Completed 05/21/2024, , 04/29/2023, Additional history exists Procedures * Due to [place] state law, this organization might not be sharing negative HIV tests. Procedure Name Priority Date/Time Associated Diagnosis Comments PUNCTAL OCCLUSION BY PLUG, SILICONE - OS - LEFT EYE Routine 09/07/2024 2:37 PM EST Keratoconjunctivitis sicca COLOR FUNDUS PHOTOGRAPHY - OU - BOTH EYES Routine 09/07/2024 2:17 PM EST PVD (posterior vitreous detachment), bilateral PUNCTAL OCCLUSION BY PLUG, SILICONE - OS - LEFT EYE Routine 08/06/2024 3:46 PM EST History of keratoconjunctivitis sicca in Sjogren's syndrome HEPATITIS C ANTIBODY W/REFLEX TO HCV RNA, QUANTITATIVE PCR Routine 04/22/2023 9:45 AM EDT from Last 3 Months or Most Recently Relevant to Health Maintenance Results * Due to [place] state law, this organization might not be sharing negative HIV tests. * Punctal Occlusion by Plug, Silicone - OS - Left Eye (09/07/2024 2:37 PM EST) Narrative Felix Prakash MD - 09/07/2024 2:37 PM EST Time Out 09/07/2024. 2:34 PM. Patient ID confirmed Name and with patient. Verbal consent obtained? Yes. Written consent obtained? Yes. Risk and benefits discussed? Yes. Consent given by patient. Patient states understanding of procedure being performed? Yes. Patient's understanding of procedure matches consent? Yes. [facility] Protocol The procedure is not an emergent [...] the procedure well. There were no complications. Felix Prakash MD OPHTH CLINIC PROCEDURES Final Re sult * Color Fundus Photography - OU - Both Eyes (09/07/2024 2:17 PM EST) Narrative OPHTHALMOLOGY IMAGING - 09/07/2024 2:17 PM EST Normal disc and macula in both eyes No signs of tears or detachments Syneresis in left eye Felix Prakash MD OPHTH PHOTOGRAPHY Final Result Performing Organization Address [facility]/ZIP Co de Phone Number OPHTHALMOLOGY IMAGING * Punctal Occlusion by Plug, Silicone - OS - Left Eye (08/06/2024 3:46 PM EST) Narrative Megan Hoff MD - 08/06/2024 3:46 PM EST Laterality was left lower lid. Time Out 08/06/2024. 3:42 PM. Patient ID confirmed Name and with patient. Verbal consent obtained? Yes. Written consent obtained? No. Risk and benefits discussed? Yes. Consent given by patient. Patient states understanding of procedure being performed? Yes. Patient's understanding of procedure matches consent? Yes. [facility] Protocol The procedure is not an emergent [...] Punctal plug was silicone. Plug size was 0.4 mm. Notes 0.6 mm scratching- disc r/b/a of removal Removed without complication 0.4mm placed [place] lot [id number] Megan Hoff MD OPHTH CLINIC PROCEDURES Ed ited Result - Final * Hepatitis C Antibody w/Reflex to HCV RNA, Quantitative PCR (04/22/2023 9:45 AM EDT) Hepatitis C Antibody Interpretation NONREACTIVE NONREACTIVE . CONVERSION DATA LAB 04/22/2023 9:45 AM EDT Result [facility] Kiesha Jewell MD LAB BLOOD ORDERABLES Final Resu lt CONVERSION DATA LAB from Last 3 Months or Most Recently Relevant to Health Maintenance Insurance MEDICARE [facility] Advance Directives Documents on File Type Date Recorded Patient Street Roller Engineer Expl [facility] Health Care Proxy 03/08/2024 3:27 PM 2023 Care Teams Career Services Officer Relationship Specialty Start Date End Date Murray Livingston PCP - General Internal Medicine 02/24/23
--- OUTSIDE RECORDS SUMMARY | 2024-10-22 13:18 | XMS_ITS | Clinical Summary ---
Author Organization [facility] [address] [facility] [address] Address [address] [place] [address] Phone Care Team Providers Care Contract Programmer Name Role Phone Bree Livingston MD Primary Care Provider [phone] Allergies Active Allergy Reactions Criticality Noted Date Comments Ciprofloxacin 06/18/2022 Sulfate Ion 06/18/2022 Medications FLUORIDE TOOTHPASTE DENT Dentifrices (FLUORIDE TOOTHPASTE DT) Place onto teeth. Active immune globulin (HIZENTRA) (20%) solution infusion Inject under the skin once a week. Active meloxicam (MOBIC) 15 mg tablet Take 1 tablet (15 mg total) by mouth daily. Active clonazePAM (KlonoPIN) 1 mg tablet Take 1 tablet (1 mg total) by mouth 2 (two) times a day as needed for anxiety. Active salmeteroL (SEREVENT) 50 mcg/dose diskus inhaler Inhale 1 inhalation. into the lungs 2 (two) times a day. Active albuterol sulfate (ProAir RespiClick) 90 mcg/actuation aerosol powdr breath activated Inhale 2 puffs by mouth 4 (four) times a day if needed (shortness of breathing). Active Vitamin D3 25 mcg (1,000 unit) capsule Take 1 capsule (1,000 Units total) by mouth 1 (one) time each day. 05/16/20 24 Active pantoprazole (PROTONIX) 40 mg EC tablet Take 1 tablet (40 mg total) by mouth 1 (one) time each day. 04/12/20 24 Active ezetimibe (ZETIA) 10 mg tablet Take 1 tablet (10 mg total) by mouth 1 (one) time each day. 90 each 07/09/20 24 Active cevimeline (EVOXAC) 30 mg capsuleIndicati ons:Sjogren syndrome, unspecified (CMS/HCC) TAKE 1 CAPSULE BY MOUTH THREE TIMES A DAY 270 capsule 1 08/13/20 24 Active levothyroxine (SYNTHROID, LEVOTHROID) 50 mcg tablet TAKE 1 TABLET BY MOUTH EVERY DAY 90 tablet 1 10/13/19 25 Active doxycycline (ADOXA) 50 mg tablet Take 1 tablet (50 mg total) by mouth 1 (one) time each day. Take with a full glass of water and do not lie down for at least 30 minutes after. Active pantoprazole (PROTONIX) 40 mg EC tabletIndicatio ns:Epigastric pain Take 1 tablet (40 mg total) by mouth 2 (two) times a day. Do not crush, chew, or split. 180 each 3 10/13/19 25 026 Active levothyroxine (SYNTHROID, LEVOTHROID) 50 mcg tablet TAKE 1 TABLET BY MOUTH EVERY DAY 90 tablet 07/09/20 24 025 Discontinued Active Problems Problem Noted Date Diagnosed Date Diverticulitis 10/13/2024 Neutrophilia 06/23/2022 Encounters Date Type Department Care Team Description 10/21/2024 3:30 PM EST Office Visit [facility] Hematology Oncology [address] [place] [phone] Jacky Ramsey MD Neutrophilia 10/19/2024 11:59 PM EST Anesthesia Event [facility] Endoscopy [address] [place] [phone] Rachell Haley CRNA 10/19/2024 9:30 AM EST Hospital Encounter [facility] Endoscopy [address] [place] [phone] Luis Fu MD Chang, Ling, CRNA Spencer, Mark A, MD 10/13/2024 2:20 PM EST Office Visit Gastroenterology - [address] [phone] Dorcas Lozoya PA Pharyngoesophageal dysphagia (Primary Dx); Epigastric pain; Hiccups 09/20/2024 2:30 PM EST Office Visit [address] [phone] Emelina Nolan PA Physical exam, routine (Primary Dx); Bilateral hip pain; Sjogren's syndrome, with unspecified organ involvement (CMS/HCC); Moderately severe depression; Screening for diabetes mellitus (DM) 08/16/[address] [phone] Bree Livingston MD Lab Results 08/13/2024 2:00 PM EST Office Visit [address] [phone] Marilu Lang PA Epigastric pain (Primary Dx); Family history of pancreatic cancer; Right arm pain; Fall, initial encounter from Last 3 Months Immunizations Name Administration Dates Next Due Influenza trivalent, with pr eservative (Fluzone; Afluria) 6mo and older 05/21/2024 Videdressing SARS-CoV-2 COVID-19, mRNA, LNP-S, preservative free 01/09/2021,12/19/2020 Surgical History Surgery Date Site/Laterality Comments SECTION PROCEDURE: HISTORICAL DELIVERY OTHER SURGICAL HISTORY 2002 PROCEDURE: [place] COLECTOMY PARTIAL W/ANASTOMOSIS; COMMENT: Diverticulitis CHOLECYSTECTOMY PROCEDURE: HISTORICAL CHOLECYSTECTOMY OTHER SURGICAL HISTORY 1969 PROCEDURE: NJ EXCISION SYNOVIAL CYST POPLITEAL SPACE OTHER SURGICAL HISTORY 2004 PROCEDURE: [place] RESCJ OVARIAN/TUBAL/PERITONEAL MALIGNANCY W/BSO OTHER SURGICAL HISTORY 2007 PROCEDURE: HISTORICAL SUBTOTAL THYROIDECTOMY; COMMENT: Ronnie--Right lobe and isthmus VAGINAL DELIVERY PROCEDURE: HISTORICAL VAGINAL DELIVERY; COMMENT: 1 OTHER SURGICAL HISTORY 06/21/2009 PROCEDURE: CHG RADIOLOGIC EXAM COLON DOUBLE CONTRAST STUDY; COMMENT: diverticulosis, no obstruction. COLONOSCOPY 11/16/2009 PROCEDURE: HISTORICAL COLONOSCOPY; COMMENT: diverticulosis OTHER SURGICAL HISTORY 04/2016 PROCEDURE: NJ LAPAROSCOPY SLING OPERATION STRESS INCONT UPPER GASTROINTESTINAL ENDOSCOPY 08/08/2016 PROCEDURE: NJ UPPER GI ENDOSCOPY PERFORMED; COMMENT: Normal upper GI findings, not on H2 saurabh or PPI treatment. BLADDER SURGERY PROCEDURE: HISTORICAL BLADDER SURGERY; COMMENT: implant for frequency BREAST BIOPSY 2009 Left PROCEDURE: BX BREAST; PERC NEEDLE CORE W/IMAG GUID; COMMENT: lt. breast bx.-benign APPENDECTOMY 05/02/2024 - 05/31/2024 Medical History Medical History Date Comments Normal delivery DX:Normal delive ry Aneurysm of unspecified site (CMS/HCC) 05/2006 DX:Aneurysm of unspecified site ([facility]); COMMENT: [facility], coils, not able to clip Depressive disorder, not els ewhere classified DX:Depressive disorder, not elsewhere classified; COMMENT: Dr Gladys lindo Cervical cancer (CMS/HCC) DX:Cer vical cancer ([facility]); COMMENT: in situ Diverticulitis DX:Diverticuliti s; COMMENT: s/p colon resection Diverticulosis of colon (wit hout mention of hemorrhage) 11/16/2009 DX:Diverticulosis of colon ( without mention of hemorrhage) Special screening for malign ant neoplasms, colon 11/16/2009 DX:Special screening for mal ignant neoplasms, colon Type II or unspecified type diabetes mellitus with unspecified complication, not stated as uncontrolled DX:Type II or unspecified t ype diabetes mellitus with unspecified complication, not stated as uncontrolled Esophageal reflux DX:Esophageal reflux Multiple thyroid nodules DX:Mult iple thyroid nodules; COMMENT: thyroid removed 2007 History of migraine 03/15/2020 DX:History o f migraine; COMMENT: Childhood onset. Chronic botox rx. Family History Medical History Relation Name Comments Breast cancer Aunt m 40s Cataracts Aunt m 40s Diabetes Father Pancreatic cancer Father at 42 Breast cancer Maternal Grandmother 60s Cataracts Maternal Grandmother 60s Other cancer Mother Other: Appendix ca Mother Breast cancer Other 2 p aunts 60s Breast cancer Paternal Grandmother 98 Cataracts Paternal Grandmother 98 Glaucoma Paternal Grandmother 98 Other: anxiety Sister and brother COPD Son 1 Depression Son 1 Asthma Son 2 Blindness Neg Hx Colon cancer Neg Hx Macular degeneration Neg Hx Strabismus Neg Hx Relation Name Status Comments Aunt m 40s Alive Father (Age 42) Maternal Grandmother 60s Mother Alive Other 2 p aunts 60s Paternal Grandmother 98 Sister Son 1 Son 2 Social History Tobacco Use Types Packs/Day Years [...] for your loved ones. For example, child psychometrist or elderly care for an older adult? [...] AM EST Sexual Orientation Not on file Obstetrics History Last Filed Vital Signs Vital Sign Reading Time Taken Comments Blood Pressure 138/85 10/21/2024 3:47 PM EST Pulse 103 10/21/2024 3:47 PM EST Temperature 36.8 ??C (98.2 ??F) 10/21/2024 3:47 PM ES T Respiratory Rate - - Oxygen Saturation 98% 10/21/2024 3:47 PM EST Inhaled Oxygen Concentration - - Weight 74.8 kg (165 lb) 10/21/2024 3:47 PM EST Height 160 cm (5' 3 ) 10/13/2024 2:24 PM EST Body Mass Index 29.23 10/13/2024 2:24 PM EST Plan of Treatment Upcoming Encounters Date Type Department Care Team (Late st Contact Info) Description 11/11/2024 1:20 PM EDT Office Visit Gastroenterology - 299 [facility] [address] [phone] Dorcas Lozoya PA [address] [address] 02/22/2025 2:30 PM EDT Office Visit [facility] Hematology Oncology [address] [place] [phone] Jacky Ramsey MD [address] [place] [phone] 03/02/2025 3:50 PM EDT Appointment Radiology Department - [address] [phone] Health Maintenance Due Date Last Done Comments Cervical Cancer Screening: Pap Smear 01/16/1984 COVID-19 Vaccine (3 - Pfizer risk series) 02/06/2021 01/09/2021, 12/19/2020 Zoster Vaccines (2 of 2) 01/23/2022 11/28/2021 Colorectal Cancer Screening: Colonoscopy 08/09/2022 HIV Screening 08/09/2022 Lung Cancer Screening (Low Dose CT) 08/09/2022 Medicare Annual Wellness Visit 08/09/2022 Breast Cancer Screening 02/08/2024 02/08/20, 02/05/2021, 10/12/2019, Additional history exists Social Influencers of Health Screening 08/13/2025 08/13/2024 Depression Screening 09/20/2025 09/20/2024 DTaP,Tdap,and Td Vaccines (3 - Td or Tdap) 10/17/2027 10/17/2017, 03/11/2008 Cholesterol Screening (Lipid Panel) 04/21/2029 04/21/2024 MMR Vaccines Aged Out 09/06/2008, 04/01, 03/16/2008 No longer eligible based on patient's age to complete this topic Hepatitis B Vaccines Completed 07/11/2017, 09/06/2008, 04/15/2008, Additional history exists Pneumococcal Vaccine: 50+ Years Completed 11/28/2021 Pneumococcal Vaccine: Pediatrics (0 to 5 Years) and At-Risk Patients (6 to 64 Years) Completed 11/28/2021 Hepatitis C Screening Completed 04/22/2023, 018 RSV Immunization Patients 60+ Years Old Completed 04/29/2023 Influenza Vaccine Completed 05/21/2024, , 04/29/2023, Additional history exists HIB Vaccines Aged Out No longer eligi ble based on patient's age to complete this topic HPV Vaccines Aged Out No longer eligi ble based on patient's age to complete this topic Hepatitis A Vaccines Aged Out No long er eligible based on patient's age to complete this topic IPV Vaccines Aged Out No longer eligi ble based on patient's age to complete this topic Meningococcal ACWY Vaccine Aged Out N o longer eligible based on patient's age to complete this topic Meningococcal B Vacine Aged Out No lo nger eligible based on patient's age to complete this topic RSV Immunization Patients Under 20 months Aged Out No longer eligible based on patient's age to complete this topic Varicella Vaccines Aged Out No longer eligible based on patient's age to complete this topic Procedures Procedure Name Priority Date/Time Associated Diagnosis Comments TRIIODOTHYRONINE FREE Routine 09/20/2024 3:26 PM EST Physical exam, routine FREE THYROXINE WITH REFLEX TO FREE TRIIODOTHYRONINE Routine 09/20/2024 3:26 PM EST Physical exam, routine COMPREHENSIVE METABOLIC PANEL Routine 09/20/2024 3:26 PM EST Physical exam, routine HEMOGLOBIN A1C Routine 09/20/2024 3:26 PM EST Physical exam, routine COMPLETE BLOOD COUNT Routine 09/20/2024 3:26 PM EST Sjogren's syndrome, with unspecified organ involvement (CMS/HCC) THYROID STIMULATING HORMONE WITH REFLEX TO FREE T4 AND FREE T3 Routine 09/20/2024 3:26 PM EST Physical exam, routine LIPASE Routine 08/13/2024 2:41 PM EST Epigastric pain Family history of pancreatic cancer COMPREHENSIVE METABOLIC PANEL Routine 08/13/2024 2:41 PM EST Epigastric pain Family history of pancreatic cancer SCREENING MAMMOGRAPHY BI 2-VIEW BREAST INC CAD Routine 02/07/2022 2:46 PM EDT Mammographic microcalcification found on diagnostic imaging of breast Encounter for screening mammogram for malignant neoplasm of breast from Last 3 Months or Most Recently Relevant to Health Maintenance Results * (ABNORMAL) Thyroid stimulating hormone with reflex to free t4 and free t3 (09/20/2024 3:26 PM EST) TSH 4.62(H) 0.40 - 4.00 mcIU/mL LAB CHEMISTRY METHOD 09/20/2024 6:10 PM EST [facility] ([facility]) [facility] Blood Venous blood specimen / Unknown Venipuncture / Unknown 09/20/2024 3:26 PM EST 09/20/2024 3:26 PM EST us Emelina FLOYD LAB BLOOD ORDERABLES Final Resul t [facility] [address] [place] [address], [place] [phone] * Free thyroxine with reflex to free triiodothyronine (09/20/2024 3:26 PM EST) Pathologist [facility] Free T4 1.29 0.70 - 1.80 ng/dL LAB CHEMISTRY METHOD 09/20/2024 6:35 PM EST [facility] Blood Venous blood specimen / Unknown Venipuncture / Unknown 09/20/2024 3:26 PM EST 09/20/2024 3:26 PM EST Emelina FLOYD LAB BLOOD ORDERABLES Final Resul t [facility] [address] [place] [address], [place] [phone] * (ABNORMAL) Complete blood count (09/20/2024 3:26 PM EST) [facility] WBC 17.5(H) 4.8 - 10.8 K/mcL LAB HEMETOLOGY METHOD 09/20/2024 5:53 PM [facility] RBC 4.90(H) 3.80 - 4.80 M/mcL LAB HEMETOLOGY METHOD 09/20/2024 5:53 PM [facility] Hemoglobin 14.7 11.5 - 16.0 g/dL LAB HEMETOLOGY METHOD 09/20/2024 5:53 PM [facility] Hematocrit 44.6 35.0 - 47.0 % LAB HEMETOLOGY METHOD 09/20/2024 5:53 PM [facility] MCV 90.8 79.0 - 98.0 FL LAB HEMETOLOGY METHOD 09/20/2024 5:53 PM [facility] MCH 29.9 27.0 - 32.0 pcg LAB HEMETOLOGY METHOD 09/20/2024 5:53 PM EST [facility] MCHC 33.0 32.0 - 37.0 g/dL LAB HEMETOLOGY METHOD 09/20/2024 5:53 PM EST [facility] RDW 14.3 11.0 - 15.0 % LAB HEMETOLOGY METHOD 09/20/2024 5:53 PM [facility] Platelets 339 130 - 400 K/mcL LAB HEMETOLOGY METHOD 09/20/2024 5:53 PM [facility] MPV 10.6 7.0 - 11.0 FL LAB HEMETOLOGY METHOD 09/20/2024 5:53 PM [facility] NRBC 0.0 <1.0 % LAB HEMETOLOGY METHOD 09/20/2024 5:53 PM [facility] NRBC Absolute 0.00 <0.10 K/mcL LAB HEMETOLOGY METHOD 09/20/2024 5:53 PM [facility] Blood Venous blood specimen / Unknown Venipuncture / Unknown 09/20/2024 3:26 PM EST 09/20/2024 3:26 PM EST Emelina FLOYD LAB BLOOD ORDERABLES Final Resul t Performing Organization Address City/[facility] Co de Phone Number [facility] [address] [place] [address], * Triiodothyronine free (09/20/2024 3:26 PM EST) T3, Free 255 230 - 420 pcg/dL LAB CHEMISTRY METHOD 09/22/2024 2:50 PM EST [facility] Blood Venous blood specimen / Unknown Venipuncture / Unknown 09/20/2024 3:26 PM EST 09/20/2024 3:26 PM EST Emelina FLOYD LAB BLOOD ORDERABLES Final Resul t [facility] [address] [place] [address], [place] [phone] * Hemoglobin A1c (09/20/2024 3:26 PM EST) Hemoglobin A1C 6.0 <6.5 % LAB CHEMISTRY METHOD 09/20/2024 9:48 PM EST [facility] Mean Bld Glu Estim. 126 mg/dL LAB CHEMISTRY METHOD 09/20/2024 9:48 PM [facility] Blood Venous blood specimen / Unknown Venipuncture / Unknown 09/20/2024 3:26 PM EST 09/20/2024 3:26 PM EST Emelina FLOYD LAB BLOOD ORDERABLES Final Resul t Performing Organization Address [facility]/ZIP Co de Phone Number [facility] [address] [place] [address], [place] [phone] * (ABNORMAL) Comprehensive metabolic panel (09/20/2024 3:26 PM EST) Only the most recent of2 resultswithin the time period is included. Pathologist [facility] Sodium 138 133 - 145 mmol/L LAB CHEMISTRY METHOD 09/20/2024 6:00 PM [facility] Potassium 3.9 3.5 - 5.5 mmol/L LAB CHEMISTRY METHOD 09/20/2024 6:00 PM [facility] Chloride 106 96 - 110 mmol/L LAB CHEMISTRY METHOD 09/20/2024 6:00 PM [facility] CO2 26 21 - 32 mmol/L LAB CHEMISTRY METHOD 09/20/2024 6:00 PM [facility] Anion Gap 6 3 - 11 LAB CHEMISTRY METHOD 09/20/2024 6:00 PM [facility] Glucose 143(H) 70 - 100 mg/dL LAB CHEMISTRY METHOD 09/20/2024 6:00 PM [facility] BUN 18 5 - 25 mg/dL LAB CHEMISTRY METHOD 09/20/2024 6:00 PM [facility] Creatinine 1.05 0.50 - 1.10 mg/dL LAB CHEMISTRY METHOD 09/20/2024 6:00 PM [facility] eGFR 61 >=60 mL/min/1. 73m2 LAB CHEMISTRY METHOD 09/20/2024 6:00 PM [facility] Comment:Calculation based on the??Chronic Kidney Disease Epidemiology Collaboration (CKD-EPI) equation refit??without adjustment for race. BUN/Creatinine Ratio 17.1 LAB CHEMISTRY METHOD 09/20/2024 6:00 PM [facility] Calcium 9.0 8.5 - 10.5 mg/dL LAB CHEMISTRY METHOD 09/20/2024 6:00 PM [facility] AST (SGOT) 17 10 - 42 unit/L LAB CHEMISTRY METHOD 09/20/2024 6:00 PM [facility] ALT (SGPT) 22 10 - 60 unit/L LAB CHEMISTRY METHOD 09/20/2024 6:00 PM [facility] Alkaline Phosphatase 105 42 - 121 unit/L LAB CHEMISTRY METHOD 09/20/2024 6:00 PM [facility] Total Protein 6.8 6.0 - 8.0 g/dL LAB CHEMISTRY METHOD 09/20/2024 6:00 PM [facility] Albumin 3.7 3.2 - 5.0 g/dL LAB CHEMISTRY METHOD 09/20/2024 6:00 PM [facility] Total Bilirubin 0.3 0.0 - 1.4 mg/dL LAB CHEMISTRY METHOD 09/20/2024 6:00 PM [facility] Blood Venous blood specimen / Unknown Venipuncture / Unknown 09/20/2024 3:26 PM EST 09/20/2024 3:26 PM EST us Emelina FLOYD LAB BLOOD ORDERABLES Final Resul t Performing Organization Address [facility]/ZIP Co de Phone Number [facility] [address] [place] [address], [place] [phone] * Lipase (08/13/2024 2:41 PM EST) Lipase 64 13 - 75 unit/L LAB CHEMISTRY METHOD 08/13/2024 6:02 PM EST [facility] Blood Venous blood specimen / Unknown Venipuncture / Unknown 08/13/2024 2:41 PM EST 08/13/2024 2:41 PM EST Marilu FLOYD LAB BLOOD ORDERABLES Final Result Performing Organization Address [facility] Co de Phone Number [facility] [address] [place] [address], * SCREENING MAMMOGRAPHY BI 2-VIEW BREAST INC CAD (02/07/2022 2:46 PM EDT) Anatomical Region Laterality Modality Radiographic Natalie ging 02/05/2021 3:39 PM EDT Narrative 02/08/2022 8:24 AM EDT This is a summary report. The complete report is available in the patient's medical record. If you cannot access the medical record, please contact the sending organization for a detailed fax or copy. Full field digital screening mammography, using both 2D mammography and tomosynthesis, reviewed with CAD and compared to previous. The breast tissue is heterogeneously dense, limiting sensitivity. No suspicious mass, architectural distortion or suspicious calcifications are identified. IMPRESSION: : Dense breast tissue, limiting the sensitivity of mammography. No mammographic evidence of malignancy. BIRADS 1-Negative; N. 5 year breast cancer risk assessment 1.6 % Lifetime breast cancer risk assessment 8.5 % Breast cancer risk category Low (<15%) Procedure Note Amol Lindo MD - 08/20/2022 This is a summary report. The complete report is available in thepatient's medical record. If you cannot access the medical record, pleasecontact the sending organization for a detailed fax or copy. Full field digital screening mammography, using both 2D mammography andtomosynthesis, reviewed with CAD and compared to previous. The breasttissue is heterogeneously dense, limiting sensitivity. No suspicious mass,architectural distortion or suspicious calcifications are identified. IMPRESSION: : Dense breast tissue, limiting the sensitivity of mammography. Nomammographic evidence of malignancy. BIRADS 1-Negative; N. 5 year breast cancer risk assessment 1.6 % Lifetime breast cancer risk assessment 8.5 % Breast cancer risk category Low (<15%) us Vanessa Duron MD IMG XR PROCEDURES Final Result from Last 3 Months or Most Recently Relevant to Health Maintenance Insurance MEDICARE MEDICAID - [place] Care Teams Contract Programmer Relationship Specialty Start Date End Date Bree Livingston MD [address] [place] [id number] PCP - General 06/01/03
--- OUTSIDE RECORDS SUMMARY | 2024-10-22 13:18 | XMS_ITS | Encounter Summary ---
Author Organization [facility] Address [address] [place] [address] Care Team Providers Care Industrial Maintenance Repairer Name Role Phone Murray Livingston Primary Care Provider [phone] Reason for Visit * Reason Comments Med Refill Encounter Details Date Type Department Care Team (Late st Contact Info) Description 10/08/2024 Refill [facility] Eye [address] [address] Felix Prakash MD [address] [place] [phone] Social History Tobacco Use Types Packs/Day Years [...] Info) Description 11/01/2024 2:00 PM EST Follow-Up [facility] [address] [place] [address] [phone] Quick Print Operator: Michell Mcghee MD [address] [place] [phone] 01/26/2025 1:15 PM EDT Clinical Support [address] [address] 01/26/2025 1:30 PM EDT Follow-Up [address] [address] Celsa Sanford MD [address] [place] [phone] 03/08/2025 2:15 PM EDT Follow-Up [address] [address] Felix Prakash MD [address] [place] [phone] documented as of this encounter Visit Diagnoses Not on filedocumented in this encounter Care Teams Industrial Maintenance Repairer Relationship Specialty Start Date End Date Murray Livingston PCP - General Internal Medicine 02/24/23 documented as of this encounter
--- OUTSIDE RECORDS SUMMARY | 2024-10-22 13:18 | XMS_ITS | Referral Summary ---
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); Lumbar radiculopathy 09/07/[address] [address] Felix Prakash MD 09/07/2024 1:15 PM EST Follow-Up [facility] [address] [address] Felix Prakash MD PVD (posterior vitreous detachment), bilateral (Primary Dx); Sjogren's syndrome with keratoconjunctivitis sicca (HCC); Keratoconjunctivitis sicca; Pseudophakia of both eyes; MGD (meibomian gland dysfunction) 08/06/2024 3:00 PM EST Follow-Up [address] [address] Megan Hoff MD History of keratoconjunctivitis sicca in Sjogren's syndrome (Primary Dx) from Last 3 Months Allergies Active Allergy Reactions Criticality Noted Date [...] Tyrvaya 0.03 mg/spray spray, metered, non-aerosol SMARTSI [place](s) Both Nares Twice Daily 4 Active doxycycline [...] Hypersomnia with sleep apnea 11/27/2006 Overview (05/06/2023): IMO update Cerebral arterial aneurysm 05/09/2006 Overview (05/06/2023): 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 03/13 attempted implantation of stent unsuccessful. 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 [...] saurabh medications. EGD 07/21 Polycystic ovaries 01/02/2006 Social History Tobacco Use Types Packs/Day Years [...] Info) Description 11/01/2024 2:00 PM EST Follow-Up [facility] [address] [place] [address] Odd Piece Checker: Michell Mcghee MD [address] [place] [address] 01/26/2025 1:15 PM EDT Clinical Support [address] [address] 01/26/2025 1:30 PM EDT Follow-Up [address] [address] Celsa Sanford MD [address] [place] [address] 03/08/2025 2:15 PM EDT Follow-Up [facility] [address] [address] Felix Prakash MD [address] [place] [address] Procedures * Due to [place] [employer] law, this organization might not be sharing [...] to Health Maintenance Results * Due to [place] [employer] law, this organization might not be sharing [...] Patient's understanding of procedure matches consent? Yes. [place] Protocol The procedure is not an emergent [...] the procedure well. There were no complications. Result [facility] Felix Prakash MD OPHTH CLINIC PROCEDURES Final Re sult * Color Fundus Photography - OU - Both Eyes (09/07/2024 2:17 PM EST) Narrative OPHTHALMOLOGY IMAGING - 09/07/2024 2:17 PM EST Normal disc and macula in both eyes No signs of tears or detachments Syneresis in left eye Result [facility] Felix Prakash MD OPHTH PHOTOGRAPHY Final Result OPHTHALMOLOGY IMAGING * Punctal Occlusion by Plug, [...] Patient's understanding of procedure matches consent? Yes. [place] Protocol The procedure is not an emergent [...] of removal Removed without complication 0.4mm placed [place] [id number] us Megan Hoff MD OPH CLINIC PROCEDURES Ed ited Result - Final * Hepatitis C Antibody w/Reflex to HCV RNA, Quantitative PCR (04/22/2023 9:45 AM EDT) Hepatitis C Antibody Interpretation NONREACTIVE NONREACTIVE . CONVERSION DATA LAB 04/22/2023 9:45 AM EDT us Kiesha Jewell MD LAB BLOOD ORDERABLES Final Resu lt CONVERSION DATA LAB from Last 3 Months or Most Recently Relevant to Health Maintenance Insurance MEDICARE [facility] Advance Directives Documents on File Type Date Recorded Patient Address Change Clerk Expl anation Health Care Proxy 03/08/2024 3:27 PM 2023 Care Teams Loading Manager Relationship Specialty Start Date End Date Murray Livingston PCP - General Internal Medicine 02/24/23
== END 2024-10-22 14:02 | disposition home or self-care (01) ==
PROVIDERS: PCP Pediatrics; Visit Provider Physician Assistant
DX: M25.559 Pain in unspecified hip (principal)
CPT/HCPCS: 99204

== ENCOUNTER → 2024-10-22 14:10 | Outpatient (BNV) | payer MEDICARE, MEDICAID, SELFPAY | PROVIDERS: PCP Pediatrics; Visit Provider Radiology Diagnostic Radiology | DX: M16.0 Bilateral primary osteoarthritis of hip (principal) | CPT/HCPCS: 73522 ==

== ENCOUNTER 2024-12-08 13:34 | Outpatient (REF) | payer MEDICARE, MEDICAID, SELFPAY ==
--- OUTSIDE RECORDS SUMMARY | 2024-12-08 15:44 | XMS_ITS | Clinical Summary ---
Author Organization [facility] Address [address] [place] [address] Care Team Providers Care Business Professor Name Role Phone Murray Livingston Primary Care Provider [phone] Allergies Active Allergy Reactions Criticality Noted Date [...] aerosol powdr breath activated Inhale by mouth. Act ranjana aspirin 81 mg EC tablet Take 81 [...] DISKUS) 50 mcg/dose inhaler Inhale by mouth. Act ranjana fluoride, sodium, 1.1 % paste BRUSH NIGHTLY AND DO NOT RINSE. 3 Active Botox 100 unit recon soln injection SMARTSI Unit(s) IM Every 3 Months 3 Active Advair Diskus 250-50 mcg/dose inhaler SMARTSI unspecified By Mouth Twice Daily 3 Active topiramate (TOPAMAX) 25 mg tablet SMARTSI Tablet(s) By Mouth Daily 3 Active perfluorohexylo ctane/PF (MIEBO OPHTHALMIC) Instill 1 drop into affected eye(s) 2 (two) times a day. Active Tyrvaya 0.03 mg/spray spray, metered, non-aerosol SMARTSI Verner(s) Both Nares Twice Daily 4 Active Lubricant Eye, propyl glycol, 0.6 % drops INSTILL 1 DROP INTO AFFECTED EYE(S) 4 TIMES A DAY 15 mL 5 5 Active ezetimibe (ZETIA) 10 mg tablet Take 1 tablet by mouth once a day. 4 Active Breo Ellipta 100-25 mcg/dose blister with device SMARTSI Puff(s) By Mouth Daily 4 Active Active Problems Problem Noted Date Diagnosed [...] (05/06/2023): Cerebral Artery Aneurysm 2005--opthalmic artery--coil at [facility] 2007 recurrence of aneurism despite stable coil. 03/13 attempted implantation of stent unsuccessful. 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 [...] Encounters Date Type Department Care Team Description 11/16/2024 Results Follow-Up [facility] [address] [place] [id number] Shingle Shearing Machine Operator: Michell Mcghee MD 11/01/2024 2:00 PM EST Follow-Up [facility] [address] [place] [phone] Shingle Shearing Machine Operator: Michell Mcghee MD Sjogren's syndrome with keratoconjunctivitis sicca (Primary Dx) 10/08/2024 Refill [facility] [address] [place] [address] Felix Prakash MD 09/27/2024 1:40 PM EST Office Visit [facility] [address] [place] [phone] Ayo Cox MD 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); Lumbar radiculopathy from Last 3 Months Family History Medical [...] Sign Reading Time Taken Comments Blood Pressure 105/67 11/01/2024 2:09 PM EST Pulse 105 11/01/2024 2:09 PM EST Temperature 36.6 ??C (97.9 ??F) 11/01/2024 2:09 PM ES T Respiratory Rate 20 06/18/2023 10:41 AM EDT Oxygen Saturation 99% 06/18/2023 10:41 AM EDT Inhaled Oxygen Concentration - - Weight 77.1 kg (170 lb) 11/01/2024 2:09 PM EST Height 161.3 cm (5' 3.5 ) 11/01/2024 2:09 PM EST Body Mass Index 29.64 11/01/2024 2:09 PM EST Plan of Treatment Upcoming Encounters Date Type Department Care Team (Late st Contact Info) Description 01/26/2025 1:15 PM EDT Clinical Support [address] [address] 01/26/2025 1:30 PM EDT Follow-Up [address] [address] Celsa Sanford MD [address] [place] [phone] 03/08/2025 2:15 PM EDT Follow-Up [address] [address] Felix Prakash MD [address] [place] [phone] 05/23/2025 3:20 PM EDT Follow-Up [facility] [address] [place] [phone] Shingle Shearing Machine Operator: Michell Mcghee MD [address] [place] [phone] Health Maintenance Due Date Last Done Comments Cervical Cancer Screening 1965 HPV and Pap Smear 1965 Pap Smear 1963 Medicare AWV 01/16/1964 Mammogram 2003 Zoster Vaccines (2 of 2) 01/23/2022 11/28/2021 COVID-19 Vaccine (3 - 2023-2 5 season) 2024 01/09/2021, 12/19/2020 Alcohol/Substance Use Screening 09/01/2024 Depression Screening and Follow-Up 09/01/2024 Social Drivers of Health Saniya ual Screening 09/01/2024 CT Lung Cancer Screening (Baseline) 02/14/2025 02/15/2024 DTaP,Tdap,and Td Vaccines (3 - Td or Tdap) 10/17/2027 10/17/2017, 03/11/2008 Hepatitis B Vaccines Completed 07/11/2017, 09/06/2008, 04/15/2008, Additional history exists HIV Screening Completed 07/02/2018 Pneumococcal Vaccine: 50+ Years Completed Hepatitis C Screening Completed 04/22/2023, 018 RSV Vaccine (60+ years old a nd patients) Completed 04/29/2023 Influenza Vaccine Completed 05/21/2024, , 04/29/2023, Additional history exists Procedures * Due to [place] state law, this organization might not be sharing negative HIV tests. Procedure Name Priority Date/Time Associated Diagnosis Comments PROTEIN, RANDOM URINE WITH CREATININE Routine 11/01/2024 3:24 PM EST Sjogren's syndrome with keratoconjunctivitis sicca PROTEIN ELECTROPHORESIS W/REFLEX TO IMMUNOFIXATION, SERUM Routine 11/01/2024 3:24 PM EST Sjogren's syndrome with keratoconjunctivitis sicca SEDIMENTATION RATE, AUTOMATED Routine 11/01/2024 3:24 PM EST Sjogren's syndrome with keratoconjunctivitis sicca C-REACTIVE PROTEIN Routine 11/01/2024 3: 24 PM EST Sjogren's syndrome with keratoconjunctivitis sicca COMPREHENSIVE METABOLIC PANEL Routine 11/01/2024 3:24 PM EST Sjogren's syndrome with keratoconjunctivitis sicca CBC AUTO DIFFERENTIAL Routine 11/01/2024 3:24 PM EST Sjogren's syndrome with keratoconjunctivitis sicca AMB EXTERNAL ANGIOGRAM, OUTSIDE RESULT 09/16/[address] CHEST, OUTSIDE RESULT 02/15/2024 HEPATITIS C ANTIBODY W/REFLEX TO HCV RNA, QUANTITATIVE PCR Routine 04/22/2023 9:45 AM EDT from Last 3 Months or Most Recently Relevant to Health Maintenance Results * Due to [place] state law, this organization might not be sharing negative HIV tests. * Protein Electrophoresis w/Reflex to Immunofixation, Serum (11/01/2024 3:24 PM EST) Protein, Total 6.9 6.1 - 8.1 g/dL 11/02/2024 10:30 PM EST [facility] Albumin 4.3 3.8 - 4.8 g/dL 11/02/2024 10:30 PM EST [facility] Alpha 1 Globulin 0.3 0.2 - 0.3 g/dL 11/02/2024 10:30 PM EST [facility] Alpha 2 Globulin 0.7 0.5 - 0.9 g/dL 11/02/2024 10:30 PM EST [facility] Beta 1 Globulin 0.4 0.4 - 0.6 g/dL 11/02/2024 10:30 PM EST [facility] Beta 2 Globulin 0.4 0.2 - 0.5 g/dL 11/02/2024 10:30 PM EST [facility] Gamma Globulin 0.8 0.8 - 1.7 g/dL 11/02/2024 10:30 PM EST [facility] Interpretation See Comments 11/02/2024 10:30 PM EST [facility] Comment: Normal Serum Protein Electrophoresis Pattern. No abnormal protein bands (M-protein) detected. Blood Structure of peripheral vein / Unknown Venipuncture / Unknown 11/01/2024 3:24 PM EST 11/01/2024 3:45 PM EST Narrative [facility] - 11/02/2024 10:30 PM EST [facility] Received Date: us Michell Villar MD LAB BLOOD ORDERABLES Final Re sult [facility] [address], [place] [address], [place] [phone] [facility] [address], [place] [address], [place] [phone] * (ABNORMAL) CBC Auto Differential (11/01/2024 3:24 PM EST) WBC 12.9(H) 3.8 - 10.8 10*3/uL 11/01/2024 3:53 PM EST [facility] RBC 5.24(H) 3.80 - 5.10 10*6/uL 11/01/2024 3:53 PM EST [facility] Hemoglobin 15.6(H) 11.7 - 15.5 g/dL 11/01/2024 3:53 PM EST [facility] Hematocrit 46.4(H) 35.0 - 45.0 % 11/01/2024 3:53 PM EST [facility] MCV 88.5 80.0 - 100.0 fL 11/01/2024 3:53 PM EST [facility] MCH 29.8 27.0 - 33.0 pg 11/01/2024 3:53 PM EST [facility] MCHC 33.6 32.0 - 36.0 g/dL 11/01/2024 3:53 PM [facility] RDW 14.5 11.0 - 15.0 % 11/01/2024 3:53 PM EST [facility] Platelets 301 140 - 400 10*3/uL 11/01/2024 3:53 PM [facility] MPV 10.2 7.5 - 12.5 fL 11/01/2024 3:53 PM EST [facility] Neutrophil % 67.2 % 11/01/2024 3:53 PM [facility] Immature Grans % 0.3 0.0 - 0.9 % 11/01/2024 3:53 PM [facility] Lymphocyte % 23.1 % 11/01/2024 3:53 PM [facility] Monocyte % 7.2 % 11/01/2024 3:53 PM [facility] Eosinophil % 1.5 % 11/01/2024 3:53 PM [facility] Basophil % 0.7 % 11/01/2024 3:53 PM [facility] Neutrophil # 8.65(H) 1.50 - 7.80 10*3/uL 11/01/2024 3:53 PM [facility] Immature Grans # 0.04(H) <=0.03 10*3/uL 11/01/2024 3:53 PM [facility] Lymphocyte # 3.00 0.85 - 3.90 10*3/uL 11/01/2024 3:53 PM [facility] Monocyte # 0.90 0.20 - 0.95 10*3/uL 11/01/2024 3:53 PM [facility] Eosinophil # 0.20 0.02 - 0.50 10*3/uL 11/01/2024 3:53 PM [facility] Basophil # 0.10 0.00 - 0.20 10*3/uL 11/01/2024 3:53 PM [facility] nRBC % 0.0 /100 WBCs 11/01/2024 3:53 PM [facility] nRBC # <0.01 <0.01 10*3/uL 11/01/2024 3:53 PM [facility] Blood Structure of peripheral vein / Unknown Venipuncture / Unknown 11/01/2024 3:24 PM EST 11/01/2024 3:45 PM EST Michell Villar MD LAB BLOOD ORDERABLES Final Re sult [facility] [address] [place] [address], [place] * Protein, Random Urine with Creatinine (11/01/2024 3:24 PM EST) Protein, Urine 22 mg/dL 11/01/2024 4:37 PM EST [facility] Creatinine, Urine 249 15 - 278 mg/dL 11/01/2024 4:37 PM EST [facility] Protein/Creati nine, Urine Ratio 88 <200 mg/gmCr 11/01/2024 4:37 PM EST [facility] Urine Urine specimen collection, clean catch / Unknown Non-Blood Collection / Unknown 11/01/2024 3:24 PM EST 11/01/2024 3:44 PM EST Michell Villar MD LAB URINE ORDERABLES Final Re sult Performing Organization Address [facility] Co de Phone Number [facility] [address] [place] [address], [place] * Sedimentation Rate (11/01/2024 3:24 PM EST) Sed Rate 28 <30 mm/Hr mm/Hr 11/01/2024 3:55 PM EST [facility] Blood Structure of peripheral vein / Unknown Venipuncture / Unknown 11/01/2024 3:24 PM EST 11/01/2024 3:45 PM EST Michell Villar MD LAB BLOOD ORDERABLES Final Re sult [facility] [address] [place] [address], * C-Reactive Protein (11/01/2024 3:24 PM EST) Pathologist [facility] C Reactive Protein 6.3 <=9.9 mg/L 11/01/2024 4:15 PM EST [facility] Blood Structure of peripheral vein / Unknown Venipuncture / Unknown 11/01/2024 3:24 PM EST 11/01/2024 3:45 PM EST us Michell Villar MD LAB BLOOD ORDERABLES Final Re sult [facility] [address] [place] [address], * (ABNORMAL) Comprehensive Metabolic Panel (11/01/2024 3:24 PM EST) Pathologist [facility] NA 140 135 - 145 mmol/L 11/01/2024 4:15 PM EST [facility] K 4.4 3.5 - 5.3 mmol/L 11/01/2024 4:15 PM EST [facility] Cl 104 98 - 107 mmol/L 11/01/2024 4:15 PM EST [facility] CO2 24 22 - 32 mmol/L 11/01/2024 4:15 PM EST [facility] Anion Gap 12 5 - 15 11/01/2024 4:15 PM EST [facility] Glucose 104(H) 65 - 99 mg/dL 11/01/2024 4:15 PM EST [facility] Creatinine 0.94 0.50 - 1.20 mg/dL 11/01/2024 4:15 PM EST [facility] Calcium 9.4 8.6 - 10.5 mg/dL 11/01/2024 4:15 PM EST [facility] Total Protein 7.5 6.0 - 8.0 g/dL 11/01/2024 4:15 PM [facility] Albumin 4.3 3.5 - 5.2 g/dL 11/01/2024 4:15 PM [facility] Bilirubin, Total 0.3 0.2 - 1.2 mg/dL 11/01/2024 4:15 PM [facility] Alkaline Phosphatase 101 35 - 129 U/L 11/01/2024 4:15 PM [facility] AST 23 10 - 40 U/L 11/01/2024 4:15 PM [facility] ALT 18 10 - 40 U/L 11/01/2024 4:15 PM [facility] BUN 13 7 - 23 mg/dL 11/01/2024 4:15 PM [facility] eGFR 69 >=60 mL/min/1. 73m2 11/01/2024 4:15 PM [facility] Comment:The estimated glomer ular filtration rate (eGFR) is calculated using a new formula developed by the NKF-ASN task force to eliminate race-based correction factors. The new formula uses serum/plasma creatinine, age, and gender to determine eGFR. A value below 60mls/min might indicate kidney disease and will be flagged. For additional information, see León et al, Am J Kidney Dis. 2021;79(2):268- 288, A Unifying Approach for GFR estimation: Recommendations of the NKF-ASN Task Force on Reassessing the Inclusion of Race in Diagnosing Kidney Disease . Globulin, Total 3.2 2.1 - 4.2 g/dL 11/01/2024 4:15 PM [facility] A/G Ratio 1.3(L) 1.5 - 3.0 11/01/2024 4:15 PM [facility] Blood Structure of peripheral vein / Unknown Venipuncture / Unknown 11/01/2024 3:24 PM EST 11/01/2024 3:45 PM EST us Michell Villar MD LAB BLOOD ORDERABLES Final Re sult Performing Organization Address [facility] Co de Phone Number [facility] [address] [place] [address], [place] * Angiogram, Outside Result (09/16/2024) Anatomical Region Laterality Modality Other 09/16/2024 us Onbase Scan [facility] AMB EXTERNAL RESULT PROCEDURE S Final Result * CT Chest, Outside Result (02/15/2024) Anatomical Region Laterality Modality Other 02/15/2024 us Onbase Scan [facility] AMB EXTERNAL RESULT PROCEDURE S Final Result * Hepatitis C Antibody w/Reflex to HCV RNA, Quantitative PCR (04/22/2023 9:45 AM EDT) Hepatitis C Antibody Interpretation NONREACTIVE NONREACTIVE . 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
--- OUTSIDE RECORDS SUMMARY | 2024-12-08 15:44 | XMS_ITS | Encounter Summary ---
Author Organization [facility] Address [address] [place] [address] Care Team Providers Care Forming Roll Operator Name Role Phone Bree Livingston MD Primary Care Provider [phone] Encounter Details Date Type Department Care Team (Late st Contact Info) Description 06/22/2024 2:43 PM EDT Hospital Encounter TH HISTORIC ENCOUNTERS [facility]AST[facility] CONVERSION ONLY Jacky Ramsey MD [address] [place] [phone] Social History Tobacco Use Types Packs/Day [...] for your loved ones. For example, child guidance counselor or elderly care for an older adult? [...] Care Team (Late st Contact Info) Description 01/13/2025 10:00 AM EDT Appointment [facility] Endoscopy [address] [place] [address] Luis Fu MD [address] [address] 02/22/2025 2:30 PM EDT Office Visit [facility] Hematology Oncology [address] [place] [phone] Jacky Ramsey MD [address] [place] [address] 03/02/2025 3:50 PM EDT Appointment Radiology Department - [address] [phone] documented as of this encounter Procedures Procedure Name Priority Date/Time Associated Diagnosis Comments ..MISCELLANEOUS REFERENCE LAB TEST 06/22/2024 documented in this encounter Results * Miscellaneous reference lab test (06/22/2024) us Provider Onbase LAB BLOOD ORDERABLES Final Re sult documented in this encounter Visit Diagnoses Not on filedocumented in this encounter Care Teams Forming Roll Operator Relationship Specialty Start Date End Date Bree Livingston MD [address] [place] [address] PCP - General 06/01/03 documented as of this encounter
--- OUTSIDE RECORDS SUMMARY | 2024-12-08 15:44 | XMS_ITS | Referral Summary ---
Author Organization [facility] Address [address] [place] [address] Care Team Providers Care Fire Warden Name Role Phone Murray Livingston Primary Care Provider [phone] Encounters Date Type Department Care Team Description 11/16/2024 Results Follow-Up [facility] [address] [place] [address] Electrical Instrumentation Technician: Michell Mcghee MD 11/01/2024 2:00 PM EST Follow-Up [facility] [address] [place] [address] Electrical Instrumentation Technician: Michell Mcghee MD Sjogren's syndrome with keratoconjunctivitis sicca (Primary Dx) 10/08/2024 Refill [facility] [address] [place] [address] Felix Prakash MD 09/27/2024 1:40 PM EST Office Visit [facility] [address] [place] [address] Ayo Cox MD 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 2007 recurrence of aneurism despite [...] Description 01/26/2025 1:15 PM EDT Clinical Support [address] [address] 01/26/2025 1:30 PM EDT Follow-Up [address] [address] Celsa Sanford MD [address] [place] [address] 03/08/2025 2:15 PM EDT Follow-Up [address] [address] Felix Prakash MD [address] [place] [address] 05/23/2025 3:20 PM EDT Follow-Up [facility] [address] [place] [address] Electrical Instrumentation Technician: Michell Mcghee MD [address] [place] [phone] Procedures * Due to [place] state law, this organization might not be [...] to Health Maintenance Results * Due to [place] state law, this organization might not be sharing negative HIV tests. * Protein Electrophoresis w/Reflex to Immunofixation, Serum (11/01/2024 3:24 PM EST) Protein, Total 6.9 6.1 - 8.1 g/dL 11/02/2024 10:30 PM EST [facility] Albumin 4.3 3.8 - 4.8 g/dL 11/02/2024 10:30 PM EST [facility] Alpha 1 Globulin 0.3 0.2 - 0.3 g/dL 11/02/2024 10:30 PM EST [facility] Alpha 2 Globulin 0.7 0.5 - 0.9 g/dL 11/02/2024 10:30 PM EST [facility] Beta 1 Globulin 0.4 0.4 - 0.6 g/dL 11/02/2024 10:30 PM EST [facility] Beta 2 Globulin 0.4 0.2 - 0.5 g/dL 11/02/2024 10:30 PM EST [facility] Gamma Globulin 0.8 0.8 - 1.7 g/dL 11/02/2024 10:30 PM EST [facility] Interpretation See Comments 11/02/2024 10:30 PM EST [facility] Comment: Normal Serum Protein Electrophoresis Pattern. No abnormal protein bands (M-protein) detected. Blood Structure of peripheral vein / Unknown Venipuncture / Unknown 11/01/2024 3:24 PM EST 11/01/2024 3:[address] [facility] [place] - 11/02/2024 10:30 PM EST [facility] Received Date: us Michell Villar MD LAB BLOOD ORDERABLES Final Re sult [facility] [address] [facility] 3rd Floor, [place] [address], [facility] [address], [place] [address], * (ABNORMAL) CBC Auto Differential (11/01/2024 3:24 PM EST) WBC 12.9(H) 3.8 - 10.8 10*3/uL 11/01/2024 3:53 PM EST [facility] RBC 5.24(H) 3.80 - 5.10 10*6/uL 11/01/2024 3:53 PM EST [facility] Hemoglobin 15.6(H) 11.7 - 15.5 g/dL 11/01/2024 3:53 PM EST [facility] Hematocrit 46.4(H) 35.0 - 45.0 % 11/01/2024 3:53 PM EST [facility] MCV 88.5 80.0 - 100.0 fL 11/01/2024 3:53 PM [facility] MCH 29.8 27.0 - 33.0 pg 11/01/2024 3:53 PM [facility] MCHC 33.6 32.0 - 36.0 g/dL 11/01/2024 3:53 PM [facility] RDW 14.5 11.0 - 15.0 % 11/01/2024 3:53 PM [facility] Platelets 301 140 - 400 10*3/uL 11/01/2024 3:53 PM [facility] MPV 10.2 7.5 - 12.5 fL 11/01/2024 3:53 PM [facility] Neutrophil % 67.2 % 11/01/2024 3:53 PM [facility] Immature Grans % 0.3 0.0 - 0.9 % 11/01/2024 3:53 PM [facility] Lymphocyte % 23.1 % 11/01/2024 3:53 PM [facility] Monocyte % 7.2 % 11/01/2024 3:53 PM [facility] Eosinophil % 1.5 % 11/01/2024 3:53 PM [facility] Basophil % 0.7 % 11/01/2024 3:53 PM [facility] Neutrophil # 8.65(H) 1.50 - 7.80 10*3/uL 11/01/2024 3:53 PM EST [facility] Immature Grans # 0.04(H) <=0.03 10*3/uL 11/01/2024 3:53 PM [facility] Lymphocyte # 3.00 0.85 - 3.90 10*3/uL 11/01/2024 3:53 PM [facility] Monocyte # 0.90 0.20 - 0.95 10*3/uL 11/01/2024 3:53 PM EST [facility] Eosinophil # 0.20 0.02 - 0.50 10*3/uL 11/01/2024 3:53 PM EST [facility] Basophil # 0.10 0.00 - 0.20 10*3/uL 11/01/2024 3:53 PM EST [facility] nRBC % 0.0 /100 WBCs 11/01/2024 3:53 PM EST [facility] nRBC # <0.01 <0.01 10*3/uL 11/01/2024 3:53 PM EST [facility] Blood Structure of peripheral vein / Unknown Venipuncture / Unknown 11/01/2024 3:24 PM EST 11/01/2024 3:45 PM EST Michell Villar MD LAB BLOOD ORDERABLES Final Re sult [facility] [address] [place] [address], * Protein, Random Urine with Creatinine (11/01/2024 3:24 PM EST) Protein, Urine 22 mg/dL 11/01/2024 4:37 PM EST [facility] Creatinine, Urine 249 15 - 278 mg/dL 11/01/2024 4:37 PM EST [facility] Protein/Creati nine, Urine Ratio 88 <200 mg/gmCr 11/01/2024 4:37 PM EST [facility] Urine Urine specimen collection, clean catch / Unknown Non-Blood Collection / Unknown 11/01/2024 3:24 PM EST 11/01/2024 3:44 PM EST Michell Villar MD LAB URINE ORDERABLES Final Re sult [facility] [address] [place] [address], [place] * Sedimentation Rate (11/01/2024 3:24 PM EST) Pathologist [facility] Sed Rate 28 <30 mm/Hr mm/Hr 11/01/2024 3:55 PM EST [facility] Blood Structure of peripheral vein / Unknown Venipuncture / Unknown 11/01/2024 3:24 PM EST 11/01/2024 3:45 PM EST Michell Villar MD LAB BLOOD ORDERABLES Final Re sult Performing Organization Address [facility] Co de Phone Number [facility] [address] [place] [address], [place] * C-Reactive Protein (11/01/2024 3:24 PM EST) Pathologist [facility] C Reactive Protein 6.3 <=9.9 mg/L 11/01/2024 4:15 PM EST [facility] Blood Structure of peripheral vein / Unknown Venipuncture / Unknown 11/01/2024 3:24 PM EST 11/01/2024 3:45 PM EST Michell Villar MD LAB BLOOD ORDERABLES Final Re sult Performing Organization Address [facility] Co de Phone Number [facility] [address] [place] [address], [place] * (ABNORMAL) Comprehensive Metabolic Panel (11/01/2024 3:24 PM EST) Pathologist [facility] NA 140 135 - 145 mmol/L 11/01/2024 4:15 PM EST [facility] K 4.4 3.5 - 5.3 mmol/L 11/01/2024 4:15 PM EST [facility] Cl 104 98 - 107 mmol/L 11/01/2024 4:15 PM EST [facility] CO2 24 22 - 32 mmol/L 11/01/2024 4:15 PM [facility] Anion Gap 12 5 - 15 11/01/2024 4:15 PM [facility] Glucose 104(H) 65 - 99 mg/dL 11/01/2024 4:15 PM [facility] Creatinine 0.94 0.50 - 1.20 mg/dL 11/01/2024 4:15 PM [facility] Calcium 9.4 8.6 - 10.5 mg/dL 11/01/2024 4:15 PM [facility] Total Protein 7.5 6.0 - 8.0 g/dL 11/01/2024 4:15 PM [facility] Albumin 4.3 3.5 - 5.2 g/dL 11/01/2024 4:15 PM [facility] Bilirubin, Total 0.3 0.2 - 1.2 mg/dL 11/01/2024 4:15 PM [facility] Alkaline Phosphatase 101 35 - 129 U/L 11/01/2024 4:15 PM [facility] AST 23 10 - 40 U/L 11/01/2024 4:15 PM [facility] ALT 18 10 - 40 U/L 11/01/2024 4:15 PM [facility] BUN 13 7 - 23 mg/dL 11/01/2024 4:15 PM [facility] eGFR 69 >=60 mL/min/1. 73m2 11/01/2024 4:15 PM [facility] Comment:The estimated glomer ular filtration rate (eGFR) is calculated using a new formula developed by the NKF-ASN task force to eliminate race-based correction factors. The new formula uses serum/plasma creatinine, age, and gender to determine eGFR. A value below 60mls/min might indicate kidney disease and will be flagged. For additional information, see Romelia et al, Am J Kidney Dis. 2021;79(2):268- 288, A Unifying Approach for GFR estimation: Recommendations of the NKF-ASN Task Force on Reassessing the Inclusion of Race in Diagnosing Kidney Disease . Globulin, Total 3.2 2.1 - 4.2 g/dL 11/01/2024 4:15 PM EST [facility] A/G Ratio 1.3(L) 1.5 - 3.0 11/01/2024 4:15 PM EST [facility] Blood Structure of peripheral vein / Unknown Venipuncture / Unknown 11/01/2024 3:24 PM EST 11/01/2024 3:45 PM EST us Michell Villar MD LAB BLOOD ORDERABLES Final Re sult [facility] [address] [place] [address], [place] * Angiogram, Outside Result (09/16/2024) Anatomical [...] Most Recently Relevant to Health Maintenance Insurance [facility] MEDICARE Advance Directives Documents on File Type Date Recorded Patient Solar Energy Systems Engineer Expl anation Health Care Proxy 03/08/2024 3:27 PM 2023 Care Teams Fire Warden Relationship Specialty Start Date End Date Murray Livingston PCP - General Internal Medicine 02/24/23
--- OUTSIDE RECORDS SUMMARY | 2024-12-08 15:44 | XMS_ITS | Clinical Summary ---
Author Organization [facility] Address [address] [id number] Care Team Providers Care Engineer Design And Construction Name Role Phone Murray Livingston MD Primary Care Provider [phone] Allergies Active Allergy Reactions Criticality Noted Date [...] age to complete this topic Care Teams Engineer Design And Construction Relationship Specialty Start Date End Date Murray Livingston MD PCP - General Pipe Machine Operator 05/15/22
--- OUTSIDE RECORDS SUMMARY | 2024-12-08 15:44 | XMS_ITS | Encounter Summary ---
Author Organization [facility] Address [address] [place] [address] Care Team Providers Care Head Turbine Operator Name Role Phone Murray Livingston Primary Care Provider [phone] Encounter Details Date Type Department Care Team (Late st Contact Info) Description 11/16/2024 Results Follow-Up [facility] [address] [place] [address] Box Office Attendant: Michell Mcghee MD [address] [place] [address] Social History Tobacco Use Types Packs/Day Years [...] as of this encounter Miscellaneous Notes * Result Encounter Note - Michell Villar MD - 11/16/2024 1:22 PM EDT Hi Mrs. Pool, Your labs are stable and inflammatory markers are normal, which is great. I obtained records from your Credit Assistant office and your CT scans of chest in December 2023 and September 2024 did not suggest anylung changes compared to 2020, which is reassuring from Sjogren's standpoint and do not warrant immu nosuppressive treatment. Best regards, Michell Villar MD Flight Purser Division of Rheumatology documented in this encounter Plan of Treatment Upcoming Encounters Date Type Department Care Team (Late st Contact Info) Description 01/26/2025 1:15 PM EDT Clinical Support [address] [address] 01/26/2025 1:30 PM EDT Follow-Up [address] [address] Celsa Sanford MD [address] [place] [id number] 03/08/2025 2:15 PM EDT Follow-Up [address] [address] Felix Prakash MD [address] [place] [address] 05/23/2025 3:20 PM EDT Follow-Up [facility] [address] [place] [address] Box Office Attendant: Michell Mcghee MD [address] [place] [phone] documented as of this encounter Visit Diagnoses Not on filedocumented in this encounter Care Teams Head Turbine Operator Relationship Specialty Start Date End Date Murray Livingston PCP - General Internal Medicine 02/24/23 documented as of this encounter
--- OUTSIDE RECORDS SUMMARY | 2024-12-08 15:44 | XMS_ITS | Clinical Summary ---
Author Organization [facility] [address] [facility] Address [address] [place] [address] Phone Care Team Providers Care Vamp Marker Name Role Phone Bree Livingston MD Primary Care Provider [phone] Allergies Active Allergy Reactions Criticality Noted Date [...] (one) time each day. 05/16/20 24 Active ezetimibe (ZETIA) 10 mg tablet [...] Active pantoprazole (PROTONIX) 40 mg EC tabletIndicatio ns:Gastro-esoph ageal reflux disease without esophagitis TAKE 1 TABLET BY MOUTH EVERY DAY 90 tablet 1 11/10/19 25 Active pantoprazole (PROTONIX) 40 mg EC tablet Take 1 tablet (40 mg total) by mouth 1 (one) time each day. 04/12/20 24 025 Discontinued pantoprazole (PROTONIX) 40 mg EC tabletIndicatio ns:Epigastric pain Take 1 tablet (40 mg total) by mouth 2 (two) times a day. Do not crush, chew, or split. 180 each 3 10/13/19 25 025 Discontinued Active Problems Problem Noted Date Diagnosed Date Diverticulitis 10/13/2024 Neutrophilia 06/23/2022 Encounters Date Type Department Care Team Description 11/10/2024 Telephone Gastroenterology - [address] [place] [phone] Luis Fu MD 10/21/2024 3:30 PM EST Office Visit [facility] Hematology Oncology [address] [place] [address] Jacky Ramsey MD Neutrophilia 10/13/2024 2:20 PM EST Office Visit Gastroenterology - [address] [place] [phone] Dorcas Lozoya PA Pharyngoesophageal dysphagia (Primary Dx); Epigastric pain; Hiccups 09/20/2024 2:30 PM EST Office Visit [address] [address] Emelina Nolan PA Physical exam, routine (Primary Dx); Bilateral hip pain; Sjogren's syndrome, with unspecified organ involvement (CMS/HCC); Moderately severe depression; Screening for diabetes mellitus (DM) from Last 3 Months Immunizations Name Administration Dates Next Due Influenza trivalent, with pr eservative (Fluzone; Afluria) 6mo and older 05/21/2024 KangaDo SARS-CoV-2 COVID-19, mRNA, LNP-S, preservative free 01/09/2021,12/19/2020 Surgical History Surgery Date Site/Laterality Comments SECTION PROCEDURE: HISTORICAL DELIVERY OTHER SURGICAL HISTORY 2002 PROCEDURE: TX COLECTOMY PARTIAL W/ANASTOMOSIS; COMMENT: Diverticulitis CHOLECYSTECTOMY PROCEDURE: HISTORICAL CHOLECYSTECTOMY OTHER SURGICAL HISTORY 1969 PROCEDURE: TX EXCISION SYNOVIAL CYST POPLITEAL SPACE OTHER SURGICAL HISTORY 2004 PROCEDURE: TX RESCJ OVARIAN/TUBAL/PERITONEAL MALIGNANCY W/BSO OTHER SURGICAL HISTORY 2007 PROCEDURE: HISTORICAL SUBTOTAL THYROIDECTOMY; COMMENT: Ronnie--Right lobe and isthmus VAGINAL DELIVERY PROCEDURE: HISTORICAL VAGINAL DELIVERY; COMMENT: 1 OTHER SURGICAL HISTORY 06/21/2009 PROCEDURE: CHG RADIOLOGIC EXAM COLON DOUBLE CONTRAST STUDY; COMMENT: diverticulosis, no obstruction. COLONOSCOPY 11/16/2009 PROCEDURE: HISTORICAL COLONOSCOPY; COMMENT: diverticulosis OTHER SURGICAL HISTORY 04/2016 PROCEDURE: TX LAPAROSCOPY SLING OPERATION STRESS INCONT UPPER GASTROINTESTINAL ENDOSCOPY 08/08/2016 PROCEDURE: TX UPPER GI ENDOSCOPY PERFORMED; COMMENT: Normal upper [...] site (CMS/HCC) 05/2006 DX:Aneurysm of unspecified site ([facility]); COMMENT: [facility], coils, not able to clip Depressive disorder, not els ewhere classified DX:Depressive disorder, not elsewhere classified; COMMENT: Dr Gladys lindo Cervical cancer (CMS/HCC) DX:Cer vical cancer ([facility]); COMMENT: in situ Diverticulitis DX:Diverticuliti s; COMMENT: [...] for your loved ones. For example, children's institution attendant or elderly care for an older [...] Info) Description 01/13/2025 10:00 AM EDT Appointment [facility] Endoscopy [address] [place] [address] Luis Fu MD [address] [id number] 02/22/2025 2:30 PM EDT Office Visit [facility] Hematology Oncology [address] [place] [address] Jacky Ramsey MD [address] [place] [address] 03/02/2025 3:50 PM EDT Appointment Radiology Department - [address] [address] Health Maintenance Due Date Last Done Comments [...] C Screening Completed 04/22/2023, 018 RSV Immunization Adult Patients Completed 04/29/2023 Influenza Vaccine Completed 05/21/2024, , [...] age to complete this topic Meningococcal B Vaccine Aged Out No l onger eligible based on patient's age to complete this topic RSV Immunization Patients Under 20 months Aged Out No longer eligible based on patient's age to complete this topic Varicella Vaccines Aged Out No longer eligible based on patient's age to complete this topic Procedures Procedure Name Priority Date/Time Associated Diagnosis Comments EXTERNAL XRAY REPORT 10/22/2024 TRIIODOTHYRONINE FREE Routine 09/20/2024 3:26 PM EST [...] 09/20/2024 3:26 PM EST Physical exam, routine SCREENING MAMMOGRAPHY BI 2-VIEW BREAST INC CAD Routine 02/07/2022 2:46 PM EDT Mammographic microcalcification found on diagnostic imaging of breast Encounter for screening mammogram for malignant neoplasm of breast from Last 3 Months or Most Recently Relevant to Health Maintenance Results * External Xray Report (10/22/2024) Anatomical Region Laterality Modality Radiographic Natalie ging Provider [facility] IMG XR PROCEDURES Final Result * (ABNORMAL) Thyroid stimulating hormone with reflex to free t4 and free t3 (09/20/2024 3:26 PM EST) TSH 4.62(H) 0.40 - 4.00 mcIU/mL LAB CHEMISTRY METHOD 09/20/2024 6:10 PM EST [facility] Blood Venous blood specimen / Unknown Venipuncture / Unknown 09/20/2024 3:26 PM EST 09/20/2024 3:26 PM EST Emelina FLOYD LAB BLOOD ORDERABLES Final Resul t [facility] [address] [place] [address], [place] [phone] * Free thyroxine with reflex to free triiodothyronine (09/20/2024 3:26 PM EST) Free T4 1.29 0.70 - 1.80 ng/dL LAB CHEMISTRY METHOD 09/20/2024 6:35 PM EST [facility] Blood Venous blood specimen / Unknown Venipuncture / Unknown 09/20/2024 3:26 PM EST 09/20/2024 3:26 PM EST Emelina FLOYD LAB BLOOD ORDERABLES Final Resul t [facility] [address] [place] [address], * (ABNORMAL) Complete blood count (09/20/2024 3:26 PM EST) WBC 17.5(H) 4.8 - 10.8 K/mcL LAB HEMETOLOGY METHOD 09/20/2024 5:53 PM EST [facility] RBC 4.90(H) 3.80 - 4.80 M/mcL LAB HEMETOLOGY METHOD 09/20/2024 5:53 PM EST [facility] Hemoglobin 14.7 11.5 - 16.0 g/dL LAB HEMETOLOGY METHOD 09/20/2024 5:53 PM EST [facility] Hematocrit 44.6 35.0 - 47.0 % LAB HEMETOLOGY METHOD 09/20/2024 5:53 PM EST [facility] MCV 90.8 79.0 - 98.0 FL LAB HEMETOLOGY METHOD 09/20/2024 5:53 PM EST [facility] MCH 29.9 27.0 - 32.0 pcg LAB HEMETOLOGY METHOD 09/20/2024 5:53 PM [facility] MCHC 33.0 32.0 - 37.0 g/dL LAB HEMETOLOGY METHOD 09/20/2024 5:53 PM EST [facility] RDW 14.3 11.0 - 15.0 % LAB HEMETOLOGY METHOD 09/20/2024 5:53 PM [facility] Platelets 339 130 - 400 K/mcL LAB HEMETOLOGY METHOD 09/20/2024 5:53 PM [facility] MPV 10.6 7.0 - 11.0 FL LAB HEMETOLOGY METHOD 09/20/2024 5:53 PM [facility] NRBC 0.0 <1.0 % LAB HEMETOLOGY METHOD 09/20/2024 5:53 PM EST [facility] NRBC Absolute 0.00 <0.10 K/mcL LAB HEMETOLOGY METHOD 09/20/2024 5:53 PM EST [facility] Blood Venous blood specimen / Unknown Venipuncture / Unknown 09/20/2024 3:26 PM EST 09/20/2024 3:26 PM EST Emelina FLOYD LAB BLOOD ORDERABLES Final Resul t Performing Organization Address City/Va Hospital/ZIP Co de Phone Number [facility] [address] [place] [address], [place] [phone] * Triiodothyronine free (09/20/2024 3:26 PM EST) T3, Free 255 230 - 420 pcg/dL LAB CHEMISTRY METHOD 09/22/2024 2:50 PM EST [facility] Blood Venous blood specimen / Unknown Venipuncture / Unknown 09/20/2024 3:26 PM EST 09/20/2024 3:26 PM EST Emelina FLOYD LAB BLOOD ORDERABLES Final Resul t Performing Organization Address [facility]/Va Hospital/ZIP Co de Phone Number [facility] [address] [place] [address], [place] [phone] * Hemoglobin A1c (09/20/2024 3:26 PM EST) Hemoglobin A1C 6.0 <6.5 % LAB CHEMISTRY METHOD 09/20/2024 9:48 PM EST [facility] Mean Bld Glu Estim. 126 mg/dL LAB CHEMISTRY METHOD 09/20/2024 9:48 PM EST [facility] Blood Venous blood specimen / Unknown Venipuncture / Unknown 09/20/2024 3:26 PM EST 09/20/2024 3:26 PM EST us Emelina FLOYD LAB BLOOD ORDERABLES Final Resul t [facility] [address] [place] [address], * (ABNORMAL) Comprehensive metabolic panel (09/20/2024 3:26 PM EST) Sodium 138 133 - 145 mmol/L LAB CHEMISTRY METHOD 09/20/2024 6:00 PM [facility] Potassium 3.9 3.5 - 5.5 mmol/L LAB CHEMISTRY METHOD 09/20/2024 6:00 PM [facility] Chloride 106 96 - 110 mmol/L LAB CHEMISTRY METHOD 09/20/2024 6:00 PM [facility] CO2 26 21 - 32 mmol/L LAB CHEMISTRY METHOD 09/20/2024 6:00 PM [facility] Anion Gap 6 3 - 11 LAB CHEMISTRY METHOD 09/20/2024 6:00 PM [facility] Glucose 143(H) 70 - 100 mg/dL LAB CHEMISTRY METHOD 09/20/2024 6:00 PM [facility] BUN 18 5 - 25 mg/dL LAB CHEMISTRY METHOD 09/20/2024 6:00 PM [facility] Creatinine 1.05 0.50 - 1.10 mg/dL LAB CHEMISTRY METHOD 09/20/2024 6:00 PM [facility] eGFR 61 >=60 mL/min/1. 73m2 LAB CHEMISTRY METHOD 09/20/2024 6:00 PM [facility] Comment:Calculation based on the??Chronic Kidney Disease Epidemiology Collaboration (CKD-EPI) equation refit??without adjustment for race. BUN/Creatinine Ratio 17.1 LAB CHEMISTRY METHOD 09/20/2024 6:00 PM [facility] Calcium 9.0 8.5 - 10.5 mg/dL LAB CHEMISTRY METHOD 09/20/2024 6:00 PM [facility] AST (SGOT) 17 10 - 42 unit/L LAB CHEMISTRY METHOD 09/20/2024 6:00 PM [facility] ALT (SGPT) 22 10 - 60 unit/L LAB CHEMISTRY METHOD 09/20/2024 6:00 PM [facility] Alkaline Phosphatase 105 42 - 121 unit/L LAB CHEMISTRY METHOD 09/20/2024 6:00 PM [facility] Total Protein 6.8 6.0 - 8.0 g/dL LAB CHEMISTRY METHOD 09/20/2024 6:00 PM [facility] Albumin 3.7 3.2 - 5.0 g/dL LAB CHEMISTRY METHOD 09/20/2024 6:00 PM [facility] Total Bilirubin 0.3 0.0 - 1.4 mg/dL LAB CHEMISTRY METHOD 09/20/2024 6:00 PM [facility] Blood Venous blood specimen / Unknown Venipuncture / Unknown 09/20/2024 3:26 PM EST 09/20/2024 3:26 PM EST us Emelina FLOYD LAB BLOOD ORDERABLES Final Resul t [facility] [address] [place] [address], * SCREENING MAMMOGRAPHY BI 2-VIEW BREAST INC [...] % Breast cancer risk category Low (<15%) Vanessa Duron MD IMG XR PROCEDURES Final Result from Last 3 Months or Most Recently Relevant to Health Maintenance Insurance MEDICARE MEDICAID - [place] Care Teams Vamp Marker Relationship Specialty Start Date End Date Bree Livingston MD [address] [place] [address] PCP - General 06/01/03
--- OUTSIDE RECORDS SUMMARY | 2024-12-08 15:44 | XMS_ITS | Clinical Summary ---
Author Organization [facility] Address [address] [address] Phone Care Team Providers Care Artificial Stone Applicator Name Role Phone Murray Livingston MD Primary [...] Adult Td,Tdap Booster 10/17/2027 10/17/2017, 008 HEPATITIS C SCREENING Completed 07/02/2018 HIV ONE-TIME [...] 11:33 AM EDT) HCV Ab Nonreactive Nonreactive [facility] Comment: (NOTE) Test performed by: ?[employer] ?[employer] ?[employer] [place] Director: Amol Rockwell M.D., Ph.D.,Director of Laboratories SIGNAL TO CUT OFF 0.00 <1.00 ratio [facility] Comment: (NOTE) HCV antibody was Nonreactive. There is no laboratory evidence of HCV infection. In most cases, no further action is required. However, if recent HCV exposure is suspected, a test for HCV RNA (test code 64257) is suggested. For additional information please refer to http://education.[employer]/faq/CJN46w2 (This link is being provided for informational/ educational purposes only.) Test performed by: ?[employer] ?[id number] ?[employer] [place] Director: Amol Rockwell M.D., Ph.D.,Director of Laboratories Additional Testing Not indicated [facility] Comment: (NOTE) Test performed by: ?[employer] [place] ?[id number] [employer] ?[place], [place] Director: Amol Rockwell M.D., Ph.D.,Director of Laboratories 07/02/2018 11:3 3 AM EDT 07/02/2018 12:34 PM EDT Gustavo Rivera MD LAB [place] [address], [facility] from Last 3 Months or Most Recently Relevant to Health Maintenance Care Teams Artificial Stone Applicator Relationship Specialty Start Date End Date Murray Livingston MD [address] [place] [phone] PCP - General Internal Medicine 04/21/18 Additional Source Comments The information contained in this document represents components of the legal health record. It is not the complete legal health record.[facility]
--- OUTSIDE RECORDS SUMMARY | 2024-12-08 15:44 | XMS_ITS | Encounter Summary ---
Author Organization [facility] Address [address] [place] [address] Care Team Providers Care Hearing Impaired Itinerant Teacher Name Role Phone Murray Livingston Primary Care Provider [phone] Reason for Visit * Reason Onset Date Comments PAC Appt Request - New 05/07/2023 Encounter Details Date Type Department Care Team (Late st Contact Info) Description 05/07/2023 Telephone [facility] [address] [place] [phone] Telephone Intake, Staff PAC Appt Request - [...] Description 01/26/2025 1:15 PM EDT Clinical Support [facility] [address] [address] 01/26/2025 1:30 PM EDT Follow-Up [address] [address] Celsa Sanford MD [address] [place] [phone] 03/08/2025 2:15 PM EDT Follow-Up [address] [address] Felix Prakash MD [address] [place] [address] 05/23/2025 3:20 PM EDT Follow-Up [facility] [address] [place] [phone] Button Spindler: Michell Mcghee MD [address] [place] [address] [phone] documented as of this encounter Visit Diagnoses Not on filedocumented in this encounter Care Teams Hearing Impaired Itinerant Teacher Relationship Specialty Start Date End Date Murray Livingston PCP - General Internal Medicine 02/24/23 documented as of this encounter
== END 2024-12-08 13:35 | disposition home or self-care (01) ==
LOC: HO.HOSX 13:34
PROVIDERS: Visit Provider Physician Assistant
DX: Z13.89 Encounter for screening for other disorder (principal)

== ENCOUNTER 2025-03-09 08:25 | Outpatient (AMB) | payer MEDICARE, MEDICAID, SELFPAY ==
--- OUTSIDE RECORDS SUMMARY | 2024-06-22 14:43 | XMS_ITS | Encounter Summary ---
Author Organization [facility] Address [address] [place] [address] Care Team Providers Care Service Unit Operator Name Role Phone Bree Livingston MD Primary Care Provider [phone] Encounter Details Date Type Department Care Team (Late st Contact Info) Description 06/22/2024 2:43 PM EDT Hospital Encounter TH HISTORIC ENCOUNTERS EASTERN CONVERSION ONLY Jacky Ramsey MD [address] [place] [phone] Social History Tobacco Use Types Packs/Day Years Used Date Smoking Tobacco: Former Cigarettes 1 36.2 0 1978 - 04/08/2014 Passive Smoke Exposure: Never Alcohol Use Standard Drinks/Week Comments No 0 (1 standard drink = 0.6 oz pur e alcohol) Housing Instability Answer Date Recorde d Are you worried that in the next 2 months you may not have stable housing? No 08/13/2024 Food Access & Nutrition Answer Date Rec [...] care, and air conditioning / heating? Hard 08/13/2024 Transportation Answer Date Recorded Has the lack of transportati on kept you from meetings, work, or from getting things needed for daily living? Yes Has the lack of transportati on kept you from medical appointments or from getting medications? Yes 08/13/2024 Social Isolation Answer Date Recorded How often do you feel lonely or isolated from those around you? Sometimes 08/13/2024 Food Risk Answer Date Recorded Within the past 12 months we worried whether our food would run out before we got money to buy more. Sometimes true 024 Within the past 12 months th e food we bought just didn't last and we didn't have money to get more. Sometimes true 08/13/2024 Dependent Care Answer Date Recorded Do you need help finding or paying for care for your loved ones. For example, child care giver or elderly care for an older adult? [...] Date Recorded What is your living situation? 1 10/14/2023 Interpersonal Safety Answer Date Record ed Physical Abuse 01/13/2025 Verbal Abuse 01/13/2025 Comments No Sex and Gender Information [...] Care Team (Late st Contact Info) Description 04/12/2025 10:15 AM EDT Appointment [facility] [address] [place] [address] 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, GRANTS OFFICER documented as of this encounter Procedures Procedure Name Priority Date/Time Associated Diagnosis Comments ..MISCELLANEOUS REFERENCE LAB TEST 06/22/2024 documented in this encounter Results * Miscellaneous reference lab test (06/22/2024) us Provider Onbase LAB BLOOD ORDERABLES Final Re sult documented in this encounter Visit Diagnoses Not on filedocumented in this encounter Care Teams Service Unit Operator Relationship Specialty Start Date End Date Bree Livingston MD [address] [place] [id number] PCP - General 06/01/03 documented as of this encounter
--- OUTSIDE RECORDS SUMMARY | 2025-03-09 08:37 | XMS_ITS | Clinical Summary ---
Author Organization [facility] Address [address] [id number] Care Team Providers Care Substance Abuse Nurse Name Role Phone Murray Livingston MD Primary Care Provider [phone] Allergies Active Allergy Reactions Criticality Noted Date [...] 99 06/22/2024 2:48 PM EDT Temperature 36.1 C (97 F) 06/22/2024 2:48 PM EDT Respiratory Rate - [...] years 1-dose series) 2023 Influenza Vaccine (#1) 2025 2, 05/17/2021, 05/08/2020, Additional history exists DTap / Tdap / Td (3 - Td or Tdap) 10/17/2027 10/17/2017, 03/11/2008 Hepatitis B Vaccines Completed 07/11/2017, 09/06/2008, 04/15/2008, Additional history exists Hepatitis C Screening Completed 07/02/2018 RSV Ped < 20 months Aged Out No longe r eligible based on patient's age to complete this topic Care Teams Substance Abuse Nurse Relationship Specialty Start Date End Date Murray Livingston MD PCP - General Paper Bundler 05/15/22
--- OUTSIDE RECORDS SUMMARY | 2025-03-09 08:38 | XMS_ITS | Patient Health Record ---
Author Organization [facility] Address [address] [place] [address] Care Team Providers Care Weight Control Engineer Name Role Phone Cordell Ruiz Unavailable [phone] Allergies Allergen (clinical drug ingredient) Drug/Non Drug Allergy documented on EMR Reaction Allergy Type Onset Date Status Substance with sulfonamide structure and antibacterial mechanism of action (substance) sulfa (uncoded) Unknown Allergy Active ciprofloxacin Cipro Unknown Drug Allergy Act ranjana penicillamine Penicillamine Unknown Drug Allergy Active Reason For Referral No Information Medications Medication SIG (Take, Route, Frequency, Duration) Notes Start Date End Date Status Aspir-81 1 tablet Orally Once a day Active Xiidra 5 % 1 drop into affected eye Ophthalmic Twice a day Active Cevimeline HCl 30 MG 1 capsule Orally Th ree times a day Active Levothyroxine Sodium 50 MCG 1 tablet on an empty stomach in the morning Orally Once a day Active Estradiol 1 patch to skin Transdermal Two times a Week Active Vitamin D-3 Active clonazePAM 0.5 MG 1 tablet Orally up t o 3 daily Active Methotrexate 2.5 mg 2 tablets Oral once a week Active Folic Acid 1 MG 1 tablet Orally Once a day Active Plaquenil 200-400 MG 1 tablet with food or milk Orally Once a day Active Linzess 145 MCG 1 capsule Orally one every 3 days Active Social History Tobacco Use: Social History Observation Description Date Details (start date - stop date) Never Smoker NA - NA Tobacco Use/Smoking Question Answer Notes Are you a nonsmoker Problems Problem Type SNOMED Code ICD Code Onset Dates Problem Status W/U Status Risk Notes Problem Spondylosis without myelopathy or radiculopathy, lumbar region (M47.816) Active confirmed Plan Of Treatment No Information Insurance Providers Payer Name Payer Address Payer Phone Subscriber Number Group Number Insured Name Patient Relationship to Insured Coverage Start Date Coverage End Date [place] [address] [place] [address] [id number] KIANA MARTINEZ Self - patient is the insured [employer] of [place] [address] [place] [id number] KIANA MARTINEZ Self - patient is the insured Medical (General) History Medical History History ICD Code thryroid disease high cholesterol reflux hernia Disc Disease DDD Brain Aneurysm Sjogrens Disease diverticulitis Surgical History Surgery Date(Month/Year) coil embulization of brain aneurysm colon re-section partial thyroidectomy hernia repair ovarian tumor removal Bakers cyst removal stent in brain aneurysm 2 C-sections bladder sling cholecystectomy Hospitalization History Reason Date(Month/Year) surgeries
--- NOTE | 2025-03-09 08:39 | A.OFFVIS_ITS ---
Intake Visit Reasons: f/u Botox Allergies ciprofloxacin (From Cipro) Allergy (Verified 03/08/25 17:05) Unknown Penicillins Allergy (Verified 03/08/25 17:05) Unknown Sulfa (Sulfonamide Antibiotics) Allergy (Verified 03/08/25 17:05) Unknown HPI Comments Details: 60 yr woman followed for chronic migraines is 7 weeks s/p Botox inj for chr. migraine. Usually, she gets a marked reduction in migraine with the BotoxWas doing well till a week ago then the migraines are recurring 3/ week already. Continues to struggle with mental and cognitive problems. Energy level remains low. Having hard time getting daily tasks done. Not working. Having increased joint pain, primarily in hips/legs. CT chest shows her nodules are gone. Hct is high. Worked up for possibly DINH vs autonomic dysautonomia . She also has neck and lower back pain. Has been diagnosed as Sjogren's syndrome. She has pain in all joints and does have dry mucus membranes. Possible FM. [facility] Medical History (Updated 03/09/25 @ 08:57 by Candy Allred MD) Constipation Diverticulitis Diverticulosis RLS (restless legs syndrome) Ataxia Chronic fatigue syndrome Chronic myeloid leukemia, BCR/ABL-positive, in relapse Dysautonomia Sjogren's syndrome MCI (mild cognitive impairment) with memory loss Cervical radiculopathy Insomnia Cervical spondylosis Anxiety state, unspecified Cerebral aneurysm, nonruptured Migraine, unspecified, intractable, without status migrainosus Surgical History (Updated 03/08/25 @ 16:54 by Ivania Renteria MA) S/P coil embolization of cerebral aneurysm H/O partial resection of colon H/O partial thyroidectomy Family History (Updated 03/08/25 @ 16:54 by Ivania Renteria MA) Father Headache Mother Headache Social History (Updated 03/08/25 @ 16:55 by Ivania Renteria MA) Patient Tobacco Use Status: Former Tobacco user Use of substances other than those prescribed or required for medical reasons: No Review of Systems Const Details: ?General/Constitutional:? Change in appetitedenies.? Fatiguedenies.? Feverdenies.? Weight gaindenies.? Weight lossdenies. ???Sleep:? Difficulty getting to sleepadmits.? Difficulty maintaining sleepadmits.? Daytime sleepinessdenies. ???Respiratory:? Shortness of breathdenies.? Chest paindenies. ???Cardiovascular:? Chest pain at restdenies.? Chest pain with exertiondenies.? Dizzinessadmits.? Fluid accumulation in the legsdenies.? Irregular heartbeatdenies.? Palpitations denies. ???Gastrointestinal:? Constipationdenies.? Diarrheadenies.? Difficulty swallowingdenies.? Heartburn denies.? Nauseadenies. ???Genitourinary:? Frequent urinationdenies.? Urgencydenies.? Incontinencedenies. ???Musculoskeletal:? Neck paindenies.? Back paindenies.? Joint stiffnessdenies.? Sciaticadenies. ???Neurologic:? Difficulty swallowingdenies.? Balance difficultydenies.? Coordinationnormal.? Difficulty speakingadmits.? Dizzinessadmits.? Faintingadmits.? Gait abnormality denies.? Headacheadmits.? Loss of strengthdenies.? Loss of use of extremity denies.? Low back paindenies.? Memory lossadmits.? Seizuresdenies.? Ticsdenies.? Tingling/Numbnessdenies.? Transient loss of visiondenies.? Tremordenies. ???Psychiatric:? Anxietydenies.? Auditory/visual hallucinationsdenies.? Delusionsdenies.? Depressed mooddenies.? Stressorsdenies.? Suicidal thoughtsdenies. Physical Exam Const Orientation/consciousness: oriented to person Neuro Other: ?General/Constitutional:? Change in appetitedenies.? Fatiguedenies.? Feverdenies.? Weight gaindenies.? Weight lossdenies. ???Sleep:? Difficulty getting to sleepadmits.? Difficulty maintaining sleepadmits.? Daytime sleepinessdenies. ???Respiratory:? Shortness of breathdenies.? Chest paindenies. ???Cardiovascular:? Chest pain at restdenies.? Chest pain with exertiondenies.? Dizzinessadmits.? Fluid accumulation in the legsdenies.? Irregular heartbeatdenies.? Palpitations denies. ???Gastrointestinal:? Constipationdenies.? Diarrheadenies.? Difficulty swallowingdenies.? Heartburn denies.? Nauseadenies. ???Genitourinary:? Frequent urinationdenies.? Urgencydenies.? Incontinencedenies. ???Musculoskeletal:? Neck paindenies.? Back paindenies.? Joint stiffnessdenies.? Sciaticadenies. ???Neurologic:? Difficulty swallowingdenies.? Balance difficultydenies.? Coordinationnormal.? Difficulty speakingadmits.? Dizzinessadmits.? Faintingadmits.? Gait abnormality denies.? Headacheadmits.? Loss of strengthdenies.? Loss of use of extremity denies.? Low back paindenies.? Memory lossadmits.? Seizuresdenies.? Ticsdenies.? Tingling/Numbnessdenies.? Transient loss of visiondenies.? Tremordenies. ???Psychiatric:? Anxietydenies.? Auditory/visual hallucinationsdenies.? Delusionsdenies.? Depressed mooddenies.? Stressorsdenies.? Suicidal thoughtsdenies. Mini Mental Status Exam: Level of Consciousness:??Alert.?Orientation:??Knows correct year, month, date, day and season,?Knows correct city, county and state. Knows correct location and floor.?Registration:??Able to register 3 objects.?Attention:??Serial 7's performed accurately.?Recall:??Able to recall 3 out of 3 objects.?Language:??Normal spontaneous speech, fluency, repetition,naming, comprehension, reading and writing.?Total Score:??30/30.? General Examination: GENERAL APPEARANCE:??normal,?in no acute distress.?HEART:??S1, S2 normal,?no murmurs.?LUNGS:??clear anteriorly and posteriorly.?MUSCULOSKELETAL:??normal.?EXTREMITIES:??no edema.?PSYCH:??alert, oriented,?cognitive function intact,?cooperative with exam.? Neurological: Abnormal neurological findings:??none.?Mental Status:??alert and oriented X 3,?Normal attention, orientation, memory and affect.?Cranial Nerves:??Pupils are equal, round and reactive to light. Fundoscopy shows normal disc bilaterally. External occular muscles are intact. Visual garcia are full, no ptosis. Face is asymmetrical, with right facial droop. Facial sensations are normal. Tongue protrudes in midline. Palate elevates symmetrically. Shoulder shrugging is normal..?Motor Examination:??Normal muscle tone, bulk and strength,?No atrophy or fasciculations,?No drift of the extended upper extremities,?Deep tendon reflexes are 2+?,?Plantars are flexor?.?Straight Leg Raising:??90 degrees.?Sensory Exam:??Normal light touch, temperature, pinprick, vibration and joint-position sensations?,?Rhomberg sign is absent.?Coordination:??no ataxia,?no titubation,?xqbzcd-[id number]-uspl, dwkc-sigy-tyhh test and rapid alternating movements were normal.?Gait Exam:??Within normal limits.?Cerebellar Signs:??Fin gary-to-nose and zees-yt-jijf is normal,?no dysdiadochokinesia?.?Extrapyramidal System:??No tremor, rigidity with normal facial expressions,?No bradykinesia, no bradyphrenia. Normal arm swing and posture. No propulsion or retropulsion.?Speech:??Normal,?no dysphasia or dysarthria..? General: oriented to person Assessment & Plan Assessment & Plan (1) Chronic migraine w/o aura w/o status migrainosus, not intractable: Code(s): G43.709 - Chronic migraine without aura, not intractable, without status migrainosus Category: Medical Plan Schedule next Botox around April 17 Medications: New onabotulinumtoxinA (Botox) 200 units IM .3 month 1 ea 4RF Coding Level of Care Code Tele New Pt Level 3 (44212) Diagnoses Chronic migraine w/o aura w/o status migrainosus, not intractable G43.709
== END 2025-03-09 14:46 | disposition home or self-care (01) ==
LOC: HO.HSM 08:26
PROVIDERS: PCP Pediatrics; Visit Provider Psychiatry & Neurology Neurology
DX: G43.709 Chronic migraine without aura, not intractable, without status migrainosus (principal)
CPT/HCPCS: 99203

== ENCOUNTER → 2025-03-09 08:25 | Outpatient (BNVA) | payer MEDICARE, MEDICAID, SELFPAY | PROVIDERS: PCP Pediatrics; Visit Provider Psychiatry & Neurology Neurology | DX: G43.709 Chronic migraine without aura, not intractable, without status migrainosus (principal); Z98.890 Other specified postprocedural states | CPT/HCPCS: 99202 ==

== ENCOUNTER 2025-07-13 10:18 | Outpatient (AMB) | payer MEDICARE, MEDICAID, SELFPAY ==
--- OUTSIDE RECORDS SUMMARY | 2024-06-22 13:43 | XMS_ITS | Encounter Summary ---
Author Organization [facility] Address [address] [place] [address] Care Team Providers Care Fastener Technologist Name Role Phone Bree Livingston MD Primary Care Provider [phone] Encounter Details Date Type Department Care Team (Late st Contact Info) Description 06/22/2024 2:43 PM EDT Hospital Encounter TH HISTORIC ENCOUNTERS EASTERN CONVERSION ONLY Jacky Ramsey MD [address] [place] [phone] Social History Tobacco Use Types Packs/Day Years Used Date Smoking Tobacco: Former Cigarettes 1 36.2 0 1978 - 04/08/2014 Passive Smoke Exposure: Never Alcohol Use Standard Drinks/Week Comments No 0 (1 standard drink = 0.6 oz pur e alcohol) Housing Instability Answer Date Recorde d Are you worried that in the next 2 months you may not have stable housing? No 03/29/2025 Food Access & Nutrition Answer Date Rec orded Do you have access to a vari ety of food including fruits and vegetables? No 08/13/2024 Access to Healthcare Answer Date Record ed Within the last 3 months, ho w many times did you visit the emergency department for your medical care? 1 08/13/2024 Health Literacy Answer Date Recorded How often do you need to hav e someone help you when you read instructions, pamphlets, or other written material from your doctor or pharmacy? Rarely 08/13/2024 Caregiver: How often do you need to have someone help you when you read instructions, pamphlets, or other written material from your doctor or pharmacy? Not on file 08/13/2024 Financial Risk Answer Date Recorded How hard is it for you to pa y for the very basics like food, housing, medical care, and air conditioning / heating? Hard 03/29/2025 Transportation Answer Date Recorded Has the lack of transportati on kept you from meetings, work, or from getting things needed for daily living? No Has the lack of transportati on kept you from medical appointments or from getting medications? No 03/29/2025 Social Isolation Answer Date Recorded How often do you feel lonely or isolated from th ose around you? Often 03/29/2025 Food Risk Answer Date Recorded Within the past 12 months we worried whether our food would run out before we got money to buy more. Sometimes true 025 Within the past 12 months th e food we bought just didn't last and we didn't have money to get more. Sometimes true 03/29/2025 Dependent Care Answer Date Recorded Do you need help finding or paying for care for your loved ones. For example, childrens club attendant or elderly care for an older adult? No 08/13/2024 Education Answer Date Recorded Do you think completing more education or training, like finishing a GED, going to college, or learning a trade, would be helpful for you? N/A 08/13/2024 Employment and Income Answer Date Recor ded During the last four weeks, have you been actively looking for work? No 08/13/2024 Living Situation Answer Date Recorded What is your living situation? Unrecognized valu e 03/29/2025 Interpersonal Safety Answer Date Record ed Physical Abuse Unrecognized value 01/13/2025 Verbal Abuse Unrecognized value 01/13/2025 Comments No Sex and Gender Information Value Date Recorded Sex Assigned at Female 10/16/2024 10:30 AM EST Legal Sex Female 12:16 PM EST Gender Identity Female 10/16/2024 10:30 AM EST Sexual Orientation Straight 01/20/2025 11 :47 AM EDT documented as of this encounter Last Filed Vital Signs Vital Sign Reading Time Taken Comments Blood Pressure 112/66 06/22/2024 2:48 PM EDT Sit ting Left arm Pulse 99 06/22/2024 2:48 PM EDT Temperature - - Respiratory Rate - - Oxygen Saturation - - Inhaled Oxygen Concentration - - Weight 74.4 kg (164 lb) 06/22/2024 2:48 PM EDT Height 162.6 cm (5' 4 ) 01/02/2023 3:20 PM EDT Body Mass Index 28.15 06/03/2024 1:27 PM EDT documented in this encounter Progress Notes * Jacky Ramsey MD - 06/22/2024 2:45 PM EDT Diagnosis/treatment: Neutrophilia. Interval history: The patient is a 59-year-old formerly smoking female with a history of Sjogren's syndrome and a primary immune deficiency who was referred for evaluation of a neutrophilia. A CBC on 11/04/2020 showed WBC 9.2 with ANC 5.4 and ALC 2.7, hemoglobin 15.1 with MCV 95, and platelet count 245,000. A CBC on 03/26/2021 showed WBC 11.8 with ANC 7.8 and ALC 2.8, hemoglobin 14.9 with MCV 93, and platelet count 267,000. A CBC on 08/20/2021 showed WBC 13.0 with ANC 9.4 and ALC 2.5, hemoglobin 15.0 with MCV 94, and platelet count 283,000. A CBC on 04/30/2022 showed WBC 24.8 with ANC 22.3 and ALC 0.5, hemoglobin 14.9 with MCV 92, and platelet count 278,000. A creatinine was 0.9. A calcium was 9.6. LFTs were normal. A CBC on 07/23/2022 showed WBC 11.5 with ANC 7.4 and ALC 2.9, hemoglobin 14.9 with MCV 93, and platelet count 277,000. She underwent a bone marrow aspirate and biopsy on 08/07/2022 pathology revealed a mildly hypercellular marrow with maturing trilineage hematopoiesis with no evidence of dysplasia. There was no fibrosis. A flow cytometry study was unremarkable. Cytogenetics were normal. Molecular studies were unableto be performed as the stability of the sample was out of the acceptable range for testing. The hematopathologist assessed the neutrophilia as being likely due to the Sjogren's syndrome and primary immune deficiency. A CBC on 12/31/2022 showed WBC 10.6 with ANC 6.4 and ALC 2.9, hemoglobin 15.3 with MCV 92, and platelet count 275,000. A CBC on 07/23/2023 showed WBC 12.3 with ANC 7.8 and ALC 3.0, hemoglobin 14.8 with MCV 92, and platelet count 282,000. A CBC on 02/05/2024 showed WBC 11.0 with ANC 6.8 and ALC 2.9, hemoglobin 14.8 with MCV 92, and platelet count 283,000. A CBC on 06/17/2024 showed WBC 10.9 with ANC 6.6 and ALC 3.0, hemoglobin 14.2 with MCV 92, and platelet count 266,000. She is a former smoker who started smoking at age 12 and smoked a pack a day and quit at age 49. She denies recent infections. 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 She denied any history of increased infections she was previously on Hizentra injections, which were discontinued. She denies B symptoms. She reports chronic mild to moderate dyspnea on exertion. She denies cough or hemoptysis. She denies headaches or visual changes. She denies nausea or abdominal pain. She denies unusual bone pain. She reports an intact appetite and stable weight. She is compliant with cancer screening. She is compliant with annual mammograms, colonoscopies, andPap smears. Past medical history: Migraines, Sjogren's syndrome, hyperlipidemia, hypothyroidism, osteopenia, cerebral aneurysm, polycystic ovarian disease, GERD, depression. Current medications: Protonix, Synthroid, cevimiline, meloxicam, albuterol, Advair, estradiol vaginal cream, Klonopin, vitamin D3, estradiol/norethindrone patch, aspirin 325 mg. Allergies: Penicillin causes anaphylaxis, Cipro causes anaphylaxis, penicillin, sulfa. Family history: Her father was diagnosed with pancreatic cancer and at age 42 from that cancer. Her mother wasdiagnosed with appendiceal cancer in her 40s and survived that diagnosis. Her brother has no history of cancer. Her 2 sisters have no history of cancer. Her son and daughter have no history of cancer. Social history: She is disabled. She is . She has 2 sons and 1 daughter. She drinks alcohol rarely. She started smoking age 12 and smoked a pack a day and quit at age 49. Review of systems: The remainder of a 10 point review of systems was unremarkable. Physical examination: HEENT: Sclerae anicteric, normal oropharyngeal membrane. Neck: No lymphadenopathy. Lungs: Clear to auscultation. Heart: No murmurs. Abdomen: Soft, nontender, no organomegaly or masses. Extremities: No edema. Skin: No rash. Neurologic: Normal gait. Assessment/plan: The patient is a 59-year-old female with a history of Sjogren's syndrome and a primary immune deficiency who was referred for evaluation of a neutrophilia. The onset of neutrophilia was in 03/2021 andhad increased sharply in 04/2022, but decreased significantly in 07/2022 and has since remained at or near the normal range, making a myeloproliferative disorder less likely. I ordered a BCR/ABL PCR assay to exclude CML, but this was not covered by insurance. I ordered a bone marrow aspirate and biopsy which did not show evidence of a myeloproliferative disorder. Cytogenetics were normal, arguing against CML. Molecular studies were not able to be performed due to the stability of the sample being out of the acceptable range for testing. She can be followed by her PCP with annual CBCs. She can be referred back to our clinic if the ANC is greater than 10.0. documented in this encounter Plan of Treatment Upcoming Encounters Date Type Department Care Team (Late st Contact Info) Description 08/04/2025 10:15 AM EST Appointment Radiology Department [address] [phone] Scheduled Procedures Name Priority Associated Diagnoses Date/Ti me DECOMPRESSION LUMBAR Spinal stenosis, lumbar region without neurogenic claudication documented as of this encounter Goals Goal Patient Goal Type Associated Problems Recent Progress Patient-Stated? Author Patient has access to needed care General No Danika Orozco, RN Note: 03/29/25 appointment requested to discuss recent lab values and need for specialist referrals to follow up on medical concerns 05/05/24 referral received and we discussed who to call. Pt plans to call both [facility] and the neurosurgeon she was referred to Pt will have resolution of her abdominal pain and symptoms General Yes Danika Orozco, RN Note: 07/06/25 pt seen in ER for abdominal pain. It was recommended that she follow up with an US. Also awaiting a UA culture result. documented as of this encounter Procedures Procedure Name Priority Date/Time Associated Diagnosis Comments ..MISCELLANEOUS REFERENCE LAB TEST 06/22/2024 documented in this encounter Results * Miscellaneous reference lab test (06/22/2024) us Provider Onbase MD LAB BLOOD ORDERABLES Final Re sult documented in this encounter Visit Diagnoses Not on filedocumented in this encounter Care Teams Fastener Technologist Relationship Specialty Start Date End Date Bree Livingston MD [address] [place] [id number] PCP - General 06/01/03 documented as of this encounter
--- OUTSIDE RECORDS SUMMARY | 2025-07-11 13:30 | XMS_ITS | Encounter Summary ---
Author Organization [facility] Address [address] [place] [address] Care Team Providers Care Legal Secretary Receptionist Name Role Phone Bree Livingston MD Primary Care Provider Reason for Referral * Imaging (Routine) - Authorized Specialty Diagnoses / Procedures Referred By Contac t Referred To Contact Radiology Diagnoses Right upper quadrant pain Procedures US Abdomen Limited Lalit Paulson PA [address] [place] [address] Phone: tel: fax: [address] [address] Phone: tel: Referral ID Status Reason Start Date Expiration Date V isits Requested Visits Authorized [id number] Authorized 07/11/2025 07/11/2026 1 1 Reason for Visit * Reason Comments er pain Encounter Details Date Type Department Care Team (Late st Contact Info) Description 07/11/2025 1:30 PM EST Office Visit Adult Medicine - [place] [address] [place] [address] Lalit Paulson PA [address] [place] [address] Right upper quadrant pain (Primary Dx); Intercostal pain; Leukocytosis, unspecified type Social History Tobacco Use Types Packs/Day Years [...] care for your loved ones. For example, early childhood specialist or elderly care for an older adult? [...] Sign Reading Time Taken Comments Blood Pressure 104/72 07/11/2025 1:17 PM EST Pulse 97 07/11/2025 1:17 PM EST Temperature 36.2 C (97.2 F) 07/11/2025 1:17 PM EST Respiratory Rate - - Oxygen Saturation - - Inhaled Oxygen Concentration - - Weight 72.1 kg (159 lb) 07/11/2025 1:17 PM EST Height - - Body Mass Index 28.17 05/18/2025 3:00 PM EDT documented in this encounter Ordered Prescriptions Prescription Sig Dispense Quantity Refills Last Filled Start Date End Date meloxicam (MOBIC) 15 mg tablet Take 1 tablet (15 mg total) by mouth 1 (one) time each day if needed for moderate pain. 90 tablet 07/11/2025 documented in this encounter Progress Notes * MARIEL Kowalski - 07/11/2025 1:30 PM EST SUBJECTIVE: Dayami Pool is a 60 y.o. female who presents today for Chief Complaint Patient presents with er pain HPI: I am meeting Dayami for the first time today. Patient of Dr. Livingston. Here for ER follow-up. Presented to [facility] on 07/06 with 2-week history of diffuse abdominal pain in the right upper quadrant. Her CBC was significant for slight leukocytosis of 13.1. No evidence of anemia. Lipase was slightly elevated at 65 otherwise LFTs were normal. Kidney function was normal. CT scan of the abd omen pelvis showed status postcholecystectomy without evidence of biliary obstruction. Kidneys and ureters were normal. Mild left-sided diverticulosis and mild right sided stool retention but no inflammation obstruction or mass. Normal uterus and right ovary. Urinary bladder normal. Today she reports that her pain is still the same. Sometimes it is worse and sometimes it is better. Pain is currently 8 out of 10. It will radiate towards the epigastrium. She had an endoscopy earlier this year with esophageal biopsies done unremarkable. Her CT scan did comment on stool retention patient denies having issues with this. No diarrhea. No fevers or chills. She reports that she was also seen at an urgent care before her symptoms started and was diagnosed with a lung infection whichwas not pneumonia but was still treated with antibiotics. She had been coughing excessively. That seems to have eased up. Current Meds: Current Medications[1] Allergies: Allergies[2] Immunizations: Immunization History Administered Date(s) Administered H1N1 Inj Preservative Free 08/16/2009 Hepatitis B (Vugovga-T-Lvnjg, Recombivax HB-Adult) 19yo and older 03/16/2008, 04/15/2008, 09/06/2008, 07/11/2017 Influenza Quadravalent, MDCK, 0.5ml, preservative free (Flucelvax) 6mo and older 05/21/2018, 04/29/2023 Influenza Quadrivalent, 0.5ml, preservative free (Fluarix; FluLaval; Fluzone) ages 6mo and older (Afluria) 3yo and older 07/13/2016, 06/26/2017, 05/28/2019, 05/08/2020, 05/17/2021, 06/21/2022 Influenza trivalent, MDCK, 0.5mL, preservative free (Flucelvax) 6mo and older 04/30/2024 Influenza trivalent, recombinant, 0.5mL, preservative free (Flublok) 9yo and older 04/26/2025 Influenza trivalent, with preservative (Fluzone; Afluria) 6mo and older 07/24/2007, 06/16/2008, 06/08/2009, 06/07/2010, 06/19/2012, 07/07/2014, 05/22/2015, 05/21/2024 Influenza, Unspecified 05/29/2021, 05/08/2022, 05/01/2024 MMR, measles mumps and rubella Live (Priorix; M-M-R II) 12mo and older 03/16/2008, 04/15/2008, 09/06/2008 PPD Test 03/16/2008 Divvyshot SARS-CoV-2 COVID-19, mRNA, LNP-S, preservative free 12/19/2020, 01/09/2021 Pneumococcal conjugate 20 valent (Prevnar 20, PCV 20) 2mo and older 11/28/2021, 11/28/2021 RSV, bivalent, protein subunit RSVpreF, 0.5mL, Preservative Free (Arexvy) 50yo and older 04/29/2023 Tdap Tetanus diptheria acellular pertussis (Boostrix; Adacel) 7yo and older 03/11/2008, 10/17/2017 Zoster recombinant (Shingrix) 19yo and older 11/28/2021, 02/16/2025 Active Problems: Problem List[3] HISTORY: Medical History[4] Surgical History[5] Family History[6] Social History Socioeconomic History Marital status: Spouse name: Not on file Number of children: Not on file Years of education: college Highest education level: Not on file Occupational History Not on file Tobacco Use Smoking status: Former Current packs/day: 0.00 Average packs/day: 1 pack/day for 36.2 years (36.2 ttl pk-yrs) Types: Cigarettes Start date: 1978 Quit date: 04/08/2014 Years since quittin.2 Passive exposure: Never Smokeless tobacco: Not on file Vaping Use Vaping status: Never Used Substance and Sexual Activity Alcohol use: No Drug use: No Sexual activity: Not Currently Other Topics Concern Not on file Social History Narrative lives with 3 children REVIEW OF SYSTEMS: Pertinent items are noted in HPI. VITAL SIGNS Vitals: 07/11/25 1317 BP: 104/72 BP Location: Left arm Pulse: 97 Temp: 36.2 ??C (97.2 ??F) TempSrc: Temporal Weight: 72.1 kg (159 lb) Body mass index is 28.17 kg/m??. Body surface area is 1.75 meters squared. PHYSICAL EXAM: JRPE: CARDIAC: regular rate & rhythm, S1 & S2 normal. No heaves, thrills, gallops or murmurs. LUNGS: Clear to auscultation, no spinal or CV tenderness. ABDOMEN: Soft nondistended. Hypoactive bowel sounds. She has some tenderness to the suprapubic region of her abdomen. She has tenderness in the epigastrium and right upper quadrant. CHEST WALL: TTP over right anterior/inferior chest wall. ASSESSMENT/PLAN: Dayami was seen today for er pain. Diagnoses and all orders for this visit: Right upper quadrant pain (Primary) - Helicobacter pylori breath test; Future - US Abdomen Limited; Future Intercostal pain Leukocytosis, unspecified type Other orders - meloxicam (MOBIC) 15 mg tablet; Take 1 tablet (15 mg total) by mouth 1 (one) time each day if needed for moderate pain. Plan ER records reviewed. Unknown etiology to patient's symptoms at this time. She has tenderness in herabdomen but she also has tenderness over her ribs. Could have been an intercostal strain. Will testfor H. pylori. Understands to withhold PPI for 2 weeks prior to coming back to be tested for it. I did order an ultrasound of the right upper quadrant for further investigation as well. F/U with care team for ongoing issues. No follow-ups on file. Orders Placed This Encounter Procedures US Abdomen Limited Helicobacter pylori breath test MARIEL Kowalski [1] Current Outpatient Medications: albuterol sulfate (ProAir RespiClick) 90 mcg/actuation aerosol powdr breath activated, Inhale 2 puffs by mouth 4 (four) times a day if needed (shortness of breathing)., Disp: , Rfl: aspirin 81 mg EC tablet, Take 1 tablet (81 mg total) by mouth., Disp: , Rfl: Breo Ellipta 100-25 mcg/dose inhaler, Inhale 1 puff by mouth 1 (one) time each day., Disp: , Rfl: clonazePAM (KlonoPIN) 1 mg tablet, Take 1 tablet (1 mg total) by mouth 2 (two) times a day as needed for anxiety., Disp: , Rfl: CombiPatch 0.05-0.14 mg/24 hr, Place 1 patch on the skin 2 (two) times a week., Disp: , Rfl: ezetimibe (ZETIA) 10 mg tablet, Take 1 tablet (10 mg total) by mouth 1 (one) time each day., Disp: 90 each, Rfl: 0 FLUORIDE TOOTHPASTE DENT, Dentifrices (FLUORIDE TOOTHPASTE DT) Place onto teeth., Disp: , Rfl: fluoride, sodium, 1.1 % paste, BRUSH TEETH TWICE A DAY WITH DIME SIZE AMOUNT, Disp: , Rfl: immun glob G,IgG,/pro/IgA 0-50 (HIZENTRA SUBQ), 0 Refills, Maintenance, 07/08/22 13:29:00 EST, Partial fill upon patient request if the prescription is for a schedule II opioid drug., Disp: , Rfl: immune globulin (HIZENTRA) (20%) solution infusion, Inject under the skin once a week., Disp: , Rfl: levothyroxine (SYNTHROID, LEVOTHROID) 50 mcg tablet, TAKE 1 TABLET BY MOUTH EVERY DAY, Disp: 90 tablet, Rfl: 1 meloxicam (MOBIC) 15 mg tablet, Take 1 tablet (15 mg total) by mouth 1 (one) time each day if needed for moderate pain., Disp: 90 tablet, Rfl: 0 Miebo, PF, 100 % drops, Administer 1 drop into affected eye(s) 2 times daily., Disp: , Rfl: pantoprazole (PROTONIX) 40 mg EC tablet, TAKE 1 TABLET BY MOUTH EVERY DAY, Disp: 90 tablet, Rfl: 1 Tyrvaya 0.03 mg/spray spray, metered, non-aerosol, Administer 1 spray into each nostril 2 (two) times a day., Disp: , Rfl: Vitamin D3 25 mcg (1,000 unit) capsule, Take 1 capsule (1,000 Units total) by mouth 1 (one) time each day., Disp: , Rfl: cevimeline (EVOXAC) 30 mg capsule, TAKE 1 CAPSULE BY MOUTH THREE TIMES A DAY (Patient taking differently: Take 1 capsule (30 mg total) by mouth 3 (three) times a day.), Disp: 270 capsule, Rfl: 0 doxycycline (ADOXA) 50 mg tablet, Take 1 tablet (50 mg total) by mouth 1 (one) time each day. Take with a full glass of water and do not lie down for at least 30 minutes after. (Patient not taking: Reported on 07/11/2025), Disp: , Rfl: doxycycline hyclate (VIBRA-TABS) 100 mg tablet, take 0.5 tablets (50 mg total) by mouth once a day.(Patient not taking: Reported on 07/11/2025), Disp: , Rfl: [2] Allergies Allergen Reactions Adhesive Rash Ciprofloxacin Rash and Pain Hydroxychloroquine Unknown Retinal damage Nickel Rash Sulfa (Sulfonamide Antibiotics) Rash Sulfasalazine Unknown Sulfate Ion [3] Patient Active Problem List Diagnosis Neutrophilia Diverticulitis Gastroesophageal reflux disease without esophagitis Hypothyroidism KEITH (headache) Lumbar stenosis with neurogenic claudication Abnormal MRI, cervical spine Spinal stenosis, lumbar region without neurogenic claudication [4] Past Medical History: Diagnosis Date Adverse effect of anesthesia BP drops Aneurysm of unspecified site ([facility] V24) 05/2006 DX:Aneurysm of unspecified site ([facility]); COMMENT: [facility], coils, not able to clip Anxiety Arthritis Bronchiectasis (CMS/HCC V24, CMS/HCC V28) Cervical cancer (CMS/HCC V24, CMS/HCC V28) DX:Cervical cancer (HCC); COMMENT: in situ Chronic pain disorder Depressive disorder, not elsewhere classified DX:Depressive disorder, not elsewhere classified; [facility] Diverticulitis DX:Diverticulitis; COMMENT: s/p colon resection Diverticulosis of colon (without mention of hemorrhage) 11/16/2009 DX:Diverticulosis of colon (without mention of hemorrhage) Dizziness Esophageal reflux DX:Esophageal reflux History of migraine 03/15/2020 DX:History of migraine; COMMENT: Childhood onset. Chronic botox rx. Joint pain Multiple thyroid nodules DX:Multiple thyroid nodules; COMMENT: thyroid removed 2007 Normal delivery DX:Normal delivery Shortness of breath Special screening for malignant neoplasms, colon 11/16/2009 DX:Special screening for malignant neoplasms, colon Type II or unspecified type diabetes mellitus with unspecified complication, not stated as uncontrolled DX:Type II or unspecified type diabetes mellitus with unspecified complication, not stated as uncontrolled [5] Past Surgical History: Procedure Laterality Date APPENDECTOMY 05/2024 BLADDER SURGERY PROCEDURE: HISTORICAL BLADDER SURGERY; COMMENT: implant for frequency BREAST BIOPSY Left 2009 PROCEDURE: BX BREAST; PERC NEEDLE CORE W/IMAG GUID; COMMENT: lt. breast bx.-benign CATARACT EXTRACTION SECTION PROCEDURE: HISTORICAL DELIVERY CHOLECYSTECTOMY PROCEDURE: HISTORICAL CHOLECYSTECTOMY COLONOSCOPY 11/16/2009 PROCEDURE: HISTORICAL COLONOSCOPY; COMMENT: diverticulosis OTHER SURGICAL HISTORY 2002 PROCEDURE: ND COLECTOMY PARTIAL W/ANASTOMOSIS; COMMENT: Diverticulitis OTHER SURGICAL HISTORY 1969 PROCEDURE: ND EXCISION SYNOVIAL CYST POPLITEAL SPACE OTHER SURGICAL HISTORY 2004 PROCEDURE: ND RESCJ OVARIAN/TUBAL/PERITONEAL MALIGNANCY W/BSO OTHER SURGICAL HISTORY 2007 PROCEDURE: HISTORICAL SUBTOTAL THYROIDECTOMY; COMMENT: Ronnie--Right lobe and isthmus OTHER SURGICAL HISTORY 06/21/2009 PROCEDURE: CHG RADIOLOGIC EXAM COLON DOUBLE CONTRAST STUDY; COMMENT: diverticulosis, no obstruction. OTHER SURGICAL HISTORY 04/2016 PROCEDURE: ND LAPAROSCOPY SLING OPERATION STRESS INCONT UPPER GASTROINTESTINAL ENDOSCOPY 08/08/2016 PROCEDURE: ND UPPER GI ENDOSCOPY PERFORMED; COMMENT: Normal upper GI findings, not on H2 saurabh orPPI treatment. VAGINAL DELIVERY PROCEDURE: HISTORICAL VAGINAL DELIVERY; COMMENT: 1 [6] Family History Problem Relation Name Age of Onset Other cancer Mother Other (Other: Appendix ca) Mother Diabetes Father Pancreatic cancer Father at 42 Other (Other: anxiety) Sister and brother Cataracts Maternal Grandmother 60s Breast cancer Maternal Grandmother 60s Cataracts Paternal Grandmother 98 Glaucoma Paternal Grandmother 98 Breast cancer Paternal Grandmother 98 Depression Son COPD Son Asthma Son Cataracts Aunt m 40s Breast cancer Aunt m 40s Breast cancer Other 2 p aunts 60s Breast cancer Other m aunt Blindness Neg Hx Macular degeneration Neg Hx Strabismus Neg Hx Colon cancer Neg Hx documented in this encounter Plan of Treatment Upcoming Encounters Date Type Department Care Team (Late st Contact Info) Description 08/04/2025 10:15 AM EST Appointment Radiology Department [address] [address] Scheduled Orders Name Type Priority Associated Diagnoses Orde r Schedule Helicobacter pylori breath test Lab Routine Right upper quadrant pain 1 Occurrences starting 07/11/2025 until 07/11/2026 US Abdomen Limited Imaging Routine Right upper quadrant pain Expected: 07/11/2025, Expires: 07/11/2026 Scheduled Procedures Name Priority Associated Diagnoses Date/Ti me DECOMPRESSION LUMBAR Spinal stenosis, lumbar region without neurogenic claudication documented as of this encounter Goals Goal Patient Goal Type Associated Problems Recent Progress Patient-Stated? Author Patient has access to needed care General Danika Ivan, RN Note: 03/29/25 appointment requested to discuss [...] culture result. documented as of this encounter Visit Diagnoses Diagnosis Right upper quadrant pain- Primary Abdominal pain, right upper quadrant Intercostal pain Leukocytosis, unspecified type documented in this encounter Discontinued Medications Medication Sig Discontinue Reason Start Date End Da te azithromycin (ZITHROMAX) 250 mg tablet TAKE 1 TABLET ON FRIDAY, FRIDAY AND Friday01/25/2025 07/11/2025 Botox 100 unit recon soln injection SMARTSI Unit(s) IM Every 3 Months 06/19/2023 07/11/2025 meloxicam (MOBIC) 15 mg tablet Take 1 tablet (15 mg total) by mouth daily. 07/11/2025 topiramate (TOPAMAX) 25 mg tablet Take 1 tablet (25 mg total) by mouth 1 (one) time each day. 07/11/2025 documented as of this encounter Additional Health Concerns Assessment Noted Time PHQ-9 Depression Total Score: 20 025 2:16 PM EST documented as of this encounter Care Teams Legal Secretary Receptionist Relationship Specialty Start Date End Date Bree Livingston MD [address] [place] [id number] PCP - General 06/01/03 documented as of this encounter
--- NOTE | 2025-07-13 10:26 | A.OFFVIS_ITS ---
Intake Visit Reasons: follow up Allergies ciprofloxacin (From Cipro) Allergy (Verified 03/08/25 17:05) Unknown Penicillins Allergy (Verified 03/08/25 17:05) Unknown Sulfa (Sulfonamide Antibiotics) Allergy (Verified 03/08/25 17:05) Unknown HPI Comments Details: 60 yr woman followed for chronic migraines who gets 3-4 monthly Botox injections for chronic migraines that occur more than 15 days a month when not receiving Botox. Her last Botox injection was on 12/01/2024 and there has been some problem getting approval therefore the Botox that was due in April has been postponed. We are trying to submit an appeal for this. She is having major exacerbation of her migraines to about 20 days a month and is having difficulty functioning. She is also scheduled for a hip replacement. She has been getting Botox injections for several years. Usually, she gets a marked reduction in migraine with the Botox. Continues to struggle with mental and cognitive problems. Energy level remains low. Having hard time getting daily tasks done. Not working. Having increased joint pain, primarily in hips/legs. CT chest shows her nodules are gone. Hct is high. Worked up for possibly DINH vs autonomic dysautonomia . She also has neck and lower back pain. Has been diagnosed as Sjogren's syndrome. She has pain in all joints and does have dry mucus membranes. Possible FM. [facility] Medical History (Updated 07/13/25 @ 10:42 by Candy Allred MD) Constipation Diverticulitis Diverticulosis RLS (restless legs syndrome) Ataxia Chronic fatigue syndrome Chronic myeloid leukemia, BCR/ABL-positive, in relapse Dysautonomia Sjogren's syndrome MCI (mild cognitive impairment) with memory loss Cervical radiculopathy Insomnia Cervical spondylosis Anxiety state, unspecified Cerebral aneurysm, nonruptured Migraine, unspecified, intractable, without status migrainosus Surgical History (Updated 03/08/25 @ 16:54 by Ivania Renteria MA) S/P coil embolization of cerebral aneurysm H/O partial resection of colon H/O partial thyroidectomy Family History (Updated 03/08/25 @ 16:54 by Ivnaia Renteria MA) Father Headache Mother Headache Social History (Updated 03/08/25 @ 16:55 by Ivania Renteria MA) Patient Tobacco Use Status: Former Tobacco user Review of Systems Const Details: ?General/Constitutional:? Change in appetitedenies.? Fatiguedenies.? Feverdenies.? Weight gaindenies.? Weight lossdenies. ???Sleep:? Difficulty getting to sleepadmits.? Difficulty maintaining sleepadmits.? Daytime sleepinessdenies. ???Respiratory:? Shortness of breathdenies.? Chest paindenies. ???Cardiovascular:? Chest pain at restdenies.? Chest pain with exertiondenies.? Dizzinessadmits.? F luid accumulation in the legsdenies.? Irregular heartbeatdenies.? Palpitations denies. ???Gastrointestinal:? Constipationdenies.? Diarrheadenies.? Difficulty swallowingdenies.? Heartburn denies.? Nauseadenies. ???Genitourinary:? Frequent urinationdenies.? Urgencydenies.? Incontinencedenies. ???Musculoskeletal:? Neck paindenies.? Back paindenies.? Joint stiffnessdenies.? Sciaticadenies. ???Neurologic:? Difficulty swallowingdenies.? Balance difficultydenies.? Coordinationnormal.? Difficulty speakingadmits.? Dizzinessadmits.? Faintingadmits.? Gait abnormality denies.? Headacheadmits.? Loss of strengthdenies.? Loss of use of extremity denies.? Low back paindenies.? Memory lossadmits.? Seizuresdenies.? Ticsdenies.? Tingling/Numbnessdenies.? Transient loss of visiondenies.? Tremordenies. ???Psychiatric:? Anxietydenies.? Auditory/visual hallucinationsdenies.? Delusionsdenies.? Depressed mooddenies.? Stressorsdenies.? Suicidal thoughtsdenies. Physical Exam Const Orientation/consciousness: oriented to person Neuro Other: ?General/Constitutional:? Change in appetitedenies.? Fatiguedenies.? Feverdenies.? Weight gaindenies.? Weight lossdenies. ???Sleep:? Difficulty getting to sleepadmits.? Difficulty maintaining sleepadmits.? Daytime sleepinessdenies. ???Respiratory:? Shortness of breathdenies.? Chest paindenies. ???Cardiovascular:? Chest pain at restdenies.? Chest pain with exertiondenies.? Dizzinessadmits.? Fluid accumulation in the legsdenies.? Irregular heartbeatdenies.? Palpitations denies. ???Gastrointestinal:? Constipationdenies.? Diarrheadenies.? Difficulty swallowingdenies.? Heartburn denies.? Nauseadenies. ???Genitourinary:? Frequent urinationdenies.? Urgencydenies.? Incontinencedenies. ???Musculoskeletal:? Neck paindenies.? Back paindenies.? Joint stiffnessdenies.? Sciaticadenies. ???Neurologic:? Difficulty swallowingdenies.? Balance difficultydenies.? Coordinationnormal.? Difficulty speakingadmits.? Dizzinessadmits.? Faintingadmits.? Gait abnormality denies.? Headacheadmits.? Loss of strengthdenies.? Loss of use of extremity denies.? Low back paindenies.? Memory lossadmits.? Seizuresdenies.? Ticsdenies.? Tingling/Numbnessdenies.? Transient loss of visiondenies.? Tremordenies. ???Psychiatric:? Anxietydenies.? Auditory/visual hallucinationsdenies.? Delusionsdenies.? Depressed mooddenies.? Stressorsdenies.? Suicidal thoughtsdenies. Mini Mental Status Exam: Level of Consciousness:??Alert.?Orientation:??Knows correct year, month, date, day and season,?Knows correct city, county and state. Knows correct location and floor.?Registration:??Able to register 3 objects.?Attention:??Serial 7's performed accurately.?Recall:??Able to recall 3 out of 3 objects.?Language:??Normal spontaneous speech, fluency, repetition,naming, comprehension, reading and writing.?Total Score:??30/30.? General Examination: GENERAL APPEARANCE:??normal,?in no acute distress.?HEART:??S1, S2 normal,?no murmurs.?LUNGS:??clear anteriorly and posteriorly.?MUSCULOSKELETAL:??normal.?EXTREMITIES:??no edema.?PSYCH:??alert, oriented,?cognitive function intact,?cooperative with exam.? Neurological: Abnormal neurological findings:??none.?Mental Status:??alert and oriented X 3,?Normal attention, orientation, memory and affect.?Cranial Nerves:??Pupils are equal, round and reactive to light. Fundoscopy shows normal disc bilaterally. External occular muscles are intact. Visual garcia are full, no ptosis. Face is asymmetrical, with right facial droop. Facial sensations are normal. Tongue protrudes in midline. Palate elevates symmetrically. Shoulder shrugging is normal..?Motor Examination:??Normal muscle tone, bulk and strength,?No atrophy or fasciculations,?No drift of the extended upper extremities,?Deep tendon reflexes are 2+?,?Plantars are flexor?.?Straight Leg Raising:??90 degrees.?Sen berry Exam:??Normal light touch, temperature, pinprick, vibration and joint- position sensations?,?Rhomberg sign is absent.?Coordination:??no ataxia,?no titubation,?dvkehm-jk-xfns, xcju-pkqg-koei test and rapid alternating movements were normal.?Gait Exam:??Within normal limits.?Cerebellar Signs:??Epsvgv-bw-ncku and uhhk-qy-toif is normal,?no dysdiadochokinesia?.?Extrapyramidal System:??No tremor, rigidity with normal facial expressions,?No bradykinesia, no bradyphrenia. Normal arm swing and posture. No propulsion or retropulsion.?Speech:??Normal,?no dysphasia or dysarthria..? General: oriented to person Assessment & Plan Assessment & Plan (1) Chronic migraine w/o aura w/o status migrainosus, not intractable: Comment: More than 15 migraine days a month currently. Her last Botox injection ( 200 u) for chronic migraine was on 12/01/2024 Code(s): G43.709 - Chronic migraine without aura, not intractable, without status migrainosus Category: Medical Plan Schedule next Botox with Virgie. Resubmit for approval for Botox 200 units for chronic migraine Medications: New meloxicam 15 mg PO DAILY 30 tabs 3RF Refilled onabotulinumtoxinA (Botox) 200 units intradermal [id number] 1 ea 4RF Coding Level of Care Code Est Pt Level 4 (52780) Diagnoses Chronic migraine w/o aura w/o status migrainosus, not intractable G43.709
--- OUTSIDE RECORDS SUMMARY | 2025-07-13 12:13 | XMS_ITS | Encounter Summary ---
Author Organization [facility] Address [address] [place] [address] Care Team Providers Care Cook Dessert Name Role Phone Bree Livingston MD Primary Care Provider [phone] Encounter Details Date Type Department Care Team (Late st Contact Info) Description 04/14/2025 Lab Requisition [facility] - Main Lab [address] [facility] [place] [address] Madeline Das PA [address] [place] [address] Frequency of micturition Social History Tobacco Use Types Packs/Day Years [...] your loved ones. For example, child and family therapist or elderly care for an older adult? [...] AM EDT documented as of this encounter Plan of Treatment Upcoming Encounters Date Type Department Care Team (Late st Contact Info) Description 08/04/2025 10:15 AM EST Appointment Radiology Department [address] [address] Scheduled Procedures Name Priority Associated Diagnoses Date/Ti [...] and the neurosurgeon she was referred to documented as of this encounter Procedures Procedure Name Priority Date/Time Associated Diagnosis Comments CULTURE URINE Routine 04/14/2025 12:00 AM EDT Frequency of micturition documented in this encounter Results * Culture urine (04/14/2025 12:00 AM EDT) Culture, Urine 10,000-49,000 CFU/mL Mixed urogenital staci, no uropathogens present. Suggest repeat specimen if clinically indicated. 04/15/2025 1:36 PM EDT [facility] Urine Urine specimen obtained by clean catch procedure / Unknown 04/14/2025 04/14/2025 5:55 PM EDT us [facility] MICROBIOLOGY - GENERAL ORD ERABLES Final Result [facility] [address] [place] [address], documented in this encounter Visit Diagnoses Diagnosis Frequency of micturition Urinary frequency documented in this encounter Additional Health Concerns Assessment Noted Time PHQ-9 Depression Total Score: 20 025 2:16 PM EST documented as of this encounter Care Teams Cook Dessert Relationship Specialty Start Date End Date Bree Livingston MD [address] [place] [address] PCP - General 06/01/03 documented as of this encounter
--- OUTSIDE RECORDS SUMMARY | 2025-07-13 12:13 | XMS_ITS | Clinical Summary ---
Author Organization [facility] Address [address] [address] Phone Care Team Providers Care Screener Operator Name Role Phone Murray Livingston MD Primary Care Provider + Allergies Active Allergy Reactions Criticality Noted Date Comments Ciprofloxacin 10/16/2005 Hydroxychloroquine 06/29/2018 Retinal damage Penicillin V Potassium 10/16/2005 Sulfasalazine 10/16/2005 Medications aspirin 325 MG tablet Take 325 mg by mouth. Active azaTHIOprine (IMURAN) 50 mg tablet Take 25 mg by mouth. 06/29/2018 Active cevimeline (EVOXAC) 30 mg capsule Take 30 mg by mouth. 04/28/2017 Active cholecalciferol , vitamin D3, 1,000 unit capsule Take by mouth. Active clonazePAM (KLONOPIN) 1 MG tablet Take 1 mg by mouth. Active doxycycline hyclate (VIBRAMYCIN) 100 MG capsule Take 100 mg by mouth. Active estradiol (ESTRACE) 0.01 % (0.1 mg/gram) vaginal cream Place 1 g vaginally. Active estradiol-noret hindrone (COMBIPATCH) 0.05-0.14 mg/[address] 1 patch [...] BY MOUTH TWICE A DAY 02/26/2018 Active tuberculin-lizeth rgy syringes 1 mL 26 gauge x 3/8 [...] with a working camera? Not on file Comments Unknown Sex and Gender Information Value Date Recorded Sex Assigned at Not on file Legal Sex Female 1:45 PM EDT Gender Identity Not on file Sexual Orientation [...] FOBT 01/16/2008 SIGMOIDOSCOPY 01/16/2008 VIRTUAL COLONOSCOPY 01/16/2008 RSV VACCINE (1 - Risk 50-74 years 1-dose series) 2013 COVID-19 VACCINE (3 - Pfizer risk series) 02/06/2021 01/09/2021, 12/19/2020 INFLUENZA VACCINE (#1) 2025 , 05/08/2020, 05/28/2019, Additional history exists Adult Td,Tdap Booster 10/17/2027 10/17/2017, 008 HEPATITIS C SCREENING Completed 07/02/2018 , 07/02/2018, 07/02/2018 HIV ONE-TIME SCREENING (18-65 YEARS) Completed 07/02/2018 HEPATITIS A VACCINES Aged Out No long er eligible based on patient's age to complete this topic HIB VACCINES Aged Out No longer eligi ble based on patient's age to complete this topic IPV VACCINES Aged Out No longer eligi ble based on patient's age to complete this topic MENINGOCOCCAL VACCINES (ACWY) Aged Out No longer eligible based on patient's age to complete this topic MENINGOCOCCAL VACCINES (B) Aged Out N o longer eligible based [...] 11:33 AM EDT) HCV Ab Nonreactive Nonreactive [facility] Comment: (NOTE) Test performed by: [facility] [employer] [address] [address] Director: Amol Rockwell M.D., Ph.D.,Director of Laboratories SIGNAL TO CUT OFF 0.00 <1.00 ratio [facility] Comment: (NOTE) HCV antibody was Nonreactive. There is no laboratory evidence of HCV infection. In most cases, no further action is required. However, if recent HCV exposure is suspected, a test for HCV RNA (test code 02306) is suggested. For additional information please refer to http://education.Mobill[employer].Web Performance/faq/BLX90e4 (This link is being provided for informational/ educational purposes only.) Test performed by: [employer] [address] [place], [place] Director: Amol Rockwell M.D., Ph.D.,Director of Laboratories Additional Testing Not indicated [facility] Comment: (NOTE) Test performed by: [email or web address] [place] [address] [place], [place] Director: Amol Rockwell M.D., Ph.D.,Director of Laboratories 07/02/2018 11:3 3 AM EDT 07/02/2018 12:34 PM EDT Gustavo Rivera MD LAB BLOOD BKR ORDERABLES [facility] [place] [address], [facility] from Last 3 Months or Most Recently Relevant to Health Maintenance Insurance MEDICARE PART A & B [facility] MEDICARE PART A & B [place] A & [place]ICARE [place] A & [address] [place] [address]HEALTH MEDICARE PART A & B [facility]IC[facility] PART A & [facility] & [place] & B [employer] MEDICARE PART A & [place] Care Teams Screener Operator Relationship Specialty Start Date End Date Murray Livingston MD [address] [place] [id number] PCP - General Internal Medicine 04/21/18 Additional Source Comments The information contained in this document represents components of the legal health record. It is not the complete legal health record.[facility]
--- OUTSIDE RECORDS SUMMARY | 2025-07-13 12:13 | XMS_ITS | Encounter Summary ---
Author Organization [facility] Address [address] [place] [address] Care Team Providers Care Paradichlorobenzene Machine Operator Name Role Phone Murray Livingston Primary Care Provider [phone] Encounter Details Date Type Department Care Team (Late st Contact Info) Description 03/29/2014 Clinical Conversion Encounter HOME PRE-OPERATIVE CENTER [facility] Preop [address] [address] Vale Diop NP [address] [place] [address] Social History Tobacco Use Types Packs/Day Years Used Date Smoking Tobacco: Some Days Comments Unknown Sex and Gender Information Value Date Recorded Sex Assigned at Female 11/02/2018 8:08 AM EST Legal Sex Female 3:15 AM EST Gender Identity Female 11/02/2018 8:08 AM EST Sexual Orientation Not on file documented as of this encounter H&P Notes * Vale Diop NP - 10/27/2014 6:10 PM EST [id number],DIANA REVISED [facility] [place] [place]. History of Present Illness Dayami is a 49 year old female seen in the preop center today at the request of Dr Martins for preop evaluation and consultation prior to her planned surgery which is scheduled for April 12, 2014. At that time she will have embolization for aneurysm INR for recurrent left ICA aneurysm. She was discovered to have a large unruptured left internal carotid artery-opthalmic aretery level aneurysm on neuro imaging workup done for vague non specific sxs in 2007. An MRI at the time showed a left ICA paraclinoid aneurysm which was treated with endovascular coil embolization by Dr Martins in 05/2008. F/U cerebral angiogram revealed the previous recanalized portion of the aneurysm was increased compared to previous angiogram in 2007, the coil mesh was unchanged but findings indicated regrowth of the aneuurysm itself Attempts were made to do pipeline procedure last March,, but there was vasospasm which prevented that from happening. This year's surgery will attempt a pipeline procedure and if not feasible, will be embolization of the Left ICA. Her past medical history is notable for nicotine use, migraines, GERD, diverticulosis, hypothyroidism, mild memory loss. Her past surgical history includes 2 prior neurosurgical procedures for the left ICA aneurysm, removal of an ovarian tumor, partial colectomy for diverticulitis, partial thyroidectomy, exploratory laparotomy and cholecystectomy. She denies any prior anesthesia complications, as well, denies any family history of anesthesia complications. However, she does state that her with her last induction she developed chest pain after receiving perhaps the succinylcholine. In regards to her physical abilities, she is physically active, has no history of exertional chest pain or shortness of breath, there is no history of DVT or PE. An EKG in the preop center today reveals normal sinus rhythm and normal EKG. Active Problems Cerebral Artery Aneurysm 437.3 Hypothyroidism 244.9 Visit For: Pre-admission Testing V72.83 Current Meds Aspirin EC 325 MG Oral Tablet Delayed Release; Take 1 tablet daily; Therapy: [id number] to (Evaluate:23Jul2014); Last Rx:[id number] ClonazePAM 1 MG Oral Tablet; TAKE 1 TABLET AT BEDTIME; Therapy: (Recorded:[id number]) to Clopidogrel Bisulfate 75 MG Oral Tablet; TAKE 1 TABLET DAILY, is starting 5 days before surgery; Therapy: 86Fjh1042 to (Evaluate:23Aht5746) Ibuprofen 600 MG Oral Tablet; TAKE 1 TABLET 3 TIMES DAILY NEEDED; Therapy: (Recorded:22Dec2012) to Levothyroxine Sodium 50 MCG Oral Tablet; TAKE 1 TABLET DAILY DIRECTED; Therapy: [id number] to Multivitamins Oral Capsule; TAKE 1 CAPSULE DAILY; Therapy: 60Hfy6860 to Vivelle-Dot 0.1 MG/24HR Transdermal Patch Biweekly; applies one every 3 days; Therapy: 91Flw1525 to Allergies Ciprofloxacin HCl TABS Penicillins Sulfa Drugs Social History Current Some Day Smoker 305.1 Review of Systems Denies chest pain, shortness of breath or palpitations Is able to state planned procedure and voices understanding of plan. ROS findings pertinent to this pt are: Mild daily headaches, mild memory loss, some word retrieval issues Vitals Loren Vitals Data Includes: Last 1 Day 29Mar2014 01:40PM Systolic 112 Diastolic 77 Heart Rate 84 BMI Calculated 28.22 BSA Calculated 1.81 Height 5 ft 4 in Weight 165 lb 4.8 oz Height Source Actual Height Weight Source Actual Weight Respiration 16 O2 Saturation 97 Temperature 98.4 F Physical Exam Color good, skin warm and dry, pt awake, alert and oriented x 3 Pt is seen independently today in the preop center V/S per chart. HEENT: head symettrical, conjunctiva clear, no conjunctival erythema, tearing, drainage or injection. Ear canals clear, does NOT use hearing aids. Nose clear, no rhinitis. Oropharynx: clear, no erythema, can open mouth wide, can insert 3 fingers horizontally into mouth. No false teeth. Sclera clear, no conjunctival inflammation, wears glasses, no contacts Neck: supple, can flex chin onto chest and hyperextend neck without difficulty. no cervical or supraclavicular adenopathy Carotids; no bruit Thyroid : midline Lungs: clear to auscultation, good bilateral expansion. Heart: regular rate and rhythm, no extrasystoles. No murmur Abdomen: soft, non-tender, non-distended, (+) BS Extremities: no peripheral edema Skin: free from lesions, no rash, no breaks in skin integrity Psych: understands upcoming surgery, eager to proceed Assessment 1. Visit For: Pre-admission Testing V72.83 2. Cerebral Artery Aneurysm 437.3 3. Hypothyroidism 244.9 Plan No contraindications to planned surgery. Per neurosurgery recommendation, the patient will take a full strength aspirin and Plavix beginning 5 days before the planned surgery. Preop booklet and instructions reviewed with patient. Pt was advised to contact surgeon if any signs of infection develop before surgery ie. fever, cold sxs, rash, new or unusual symptoms. On the day of surgery: Patient may take clonazepam if needed At patient request patient spoke with anesthesiologist today in the preop center regarding her desire not to receive succinylcholine as induction agent. Signatures Electronically signed by : VALE DIOP NP; Mar 29 2014 2:56PM Electronically signed by : VALE DIOP NP; Mar 29 2014 2:58PM documented in this encounter Plan of Treatment Not on file documented as of this encounter Visit Diagnoses Not on filedocumented in this encounter Care Teams Paradichlorobenzene Machine Operator Relationship Specialty Start Date End Date Murray Livingston PCP - General 07/11/14 documented as of this encounter
--- OUTSIDE RECORDS SUMMARY | 2025-07-13 12:13 | XMS_ITS | Encounter Summary ---
Author Organization [facility] Address [address] [place] [address] Care Team Providers Care Manager Specialty Name Role Phone Murray Livingston Primary Care Provider Reason for Referral * MRI/CAT/PET Scan (Routine) - Authorized Specialty Diagnoses / Procedures Referred By Feroz borrero Referred To Contact Radiology Diagnoses Sjogren's syndrome with keratoconjunctivitis sicca (HCC) Shortness of breath Procedures CT Chest Interstitial Lung Disease/Fibrosis Michell Villar MD [address] [place] [address] Phone: tel: fax: Referral ID Status Reason Start Date Expiration Date V isits Requested Visits Authorized [id number] Authorized 07/08/2025 01/07/2027 1 1 Encounter Details Date Type Department Care Team (Latest Contact Info) Description 07/08/2025 Orders Only [facility] [address] [place] [phone] Tool And Gauge Inspector: Michell Mcghee MD [address] [place] [address] [phone] Sjogren's syndrome with keratoconjunctivitis sicca (HCC) (Primary Dx); Shortness of breath Social History Tobacco Use Types Packs/Day Years [...] Care Team (Late st Contact Info) Description 07/14/2025 2:15 PM EST Follow-Up [facility] [address] [address] Felix Prakash MD [address] [place] [address] [phone] 09/27/2025 12:00 PM EST Office Visit [address] [address] Rachelle Guadalupe, OD [address] [place] [address] [phone] 01/20/2026 2:20 PM EDT Follow-Up [facility] [address] [place] [id number] Tool And Gauge Inspector: Michell Mcghee MD [address] [place] [address] [phone] 02/01/2026 2:00 PM EDT Follow-Up [address] [phone] Celsa Sanford MD [address] [place] [phone] Scheduled Orders Name Type Priority Associated Diagnoses Orde r Schedule CT Chest Interstitial Lung Disease/Fibrosis Imaging Routine Sjogren's syndrome with keratoconjunctivitis sicca (HCC) Shortness of breath Expected: 07/08/2025, Expires: 09/07/2026 documented as of this encounter Visit Diagnoses Diagnosis Sjogren's syndrome with keratoconjunctivitis sicca (HCC)- Primary Shortness of breath documented in this encounter Care Teams Manager Specialty Relationship Specialty Start Date End Date Murray Livingston Bennie PCP - General Internal Medicine 02/24/23 documented as of this encounter
--- OUTSIDE RECORDS SUMMARY | 2025-07-13 12:13 | XMS_ITS | Encounter Summary ---
Author Organization [facility] Address [address] [place] [address] Care Team Providers Care Ordnance Corps Officer Name Role Phone Murray Livingston Primary Care Provider [phone] Reason for Visit * Reason Onset Date Comments PAC Appt Request - New 05/07/2023 Encounter Details Date Type Department Care Team (Late st Contact Info) Description 05/07/2023 Telephone [facility] [address] [place] [address] Telephone Intake, Staff PAC Appt Request - [...] Info) Description 07/14/2025 2:15 PM EST Follow-Up [facility] [address] [address] Felix Prakash MD [address] [place] [address] 09/27/2025 12:00 PM EST Office Visit [address] [address] Rachelle Guadalupe, OD [address] [place] [address] [id number] 01/20/2026 2:20 PM EDT Follow-Up [facility] [address] [place] [address] Continuous Conveyor Screen Drier: Michell Mcghee MD [address] [place] [address] 02/01/2026 2:00 PM EDT Follow-Up [address] [address] Celsa Sanford MD [address] [place] [address] documented as of this encounter Visit Diagnoses Not on filedocumented in this encounter Care Teams Ordnance Corps Officer Relationship Specialty Start Date End Date [place] Murray Avery PCP - General Internal Medicine 02/24/23 documented as of this encounter
--- OUTSIDE RECORDS SUMMARY | 2025-07-13 12:13 | XMS_ITS | Encounter Summary ---
Author Organization [facility] Address [address] [place] [address] Care Team Providers Care Executive Producer Name Role Phone Murray Livingston Primary Care Provider Encounter Details Date Type Department Care Team (Late st Contact Info) Description 04/10/2016 Pre Visit Planning [facility] [address] [place] [address] Jennifer Hdz LICSW Social History Tobacco Use Types Packs/Day Years Used Date Smoking Tobacco: Former Alcohol Use Standard Drinks/Week Comments No 0 (1 standard drink = 0.6 oz pur e alcohol) Comments No Sex and Gender Information Value Date Recorded Sex Assigned at Female 11/02/2018 8:08 AM EST Legal Sex Female 3:15 AM EST Gender Identity Female 11/02/2018 8:08 AM EST Sexual Orientation Not on file documented as of this encounter Plan of Treatment Not on file documented as of this encounter Visit Diagnoses Not on filedocumented in this encounter Care Teams Executive Producer Relationship Specialty Start Date End Date Murray Livingston PCP - General 07/11/14 documented as of this encounter
--- OUTSIDE RECORDS SUMMARY | 2025-07-13 12:13 | XMS_ITS | Encounter Summary ---
Author Organization [facility] Address [address] [place] [address] Care Team Providers Care Website Admin Name Role Phone Murray Livingston Primary Care Provider Encounter Details Date Type Department Care Team (Late st Contact Info) Description 05/15/2006 Clinical Conversion Encounter Department of Neurosurgery [address] [address] Jus Landon MD [address] [place] [address] Social History Tobacco Use Types Packs/Day Years Used Date Smoking Tobacco: Never Assessed Comments Unknown Sex and Gender Information Value Date Recorded Sex Assigned at Female 11/02/2018 8:08 AM EST Legal Sex Female 3:15 AM EST Gender Identity Female 11/02/2018 8:08 AM EST Sexual Orientation Not on file documented as of this encounter Discharge Summaries * Jus Landon MD - 11/07/2014 3:32 PM EDT [id number],DIANA [place], [place]. NS NAME: DAYAMI POOL DATE: 05/15/2006 [facility] [id number] DISCHARGE SUMMARY NAME: DAYAMI POOL #: [id number] : 1965 ADMISSION DATE: 05/15/2006 DISCHARGE DATE: 05/17/2006 VISIT ID: [id number] ATTENDING PHYSICIAN: Jus Landon MD. 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 DISCHARGE MEDICATIONS AND DOSAGES: Klonopin 1 mg p.o. q.h.s., minocycline 50 mg p.o. b.i.d., Prilosec 20 mg p.o. q.24 hours, ibuprofen 600 mg p.o. q.8 hours p.r.n., Fioricet 1 or 2 tablets p.o. q.8 hours p.r.n., Medrol Dosepak as directed. PROCEDURES PERFORMED: Cerebral angiogram embolization of aneurysm by Dr. Afshan Martins on 05/15/2006. REASON FOR ADMISSION: Ms. Pool is a 41-year-old right-handed woman who presented to her primary care physician for evaluation of blurred vision on the left, speech difficulties with slurred speech, errors in grammar, memory difficulties, increased clumsiness, and gait instability. 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 She was referred for evaluation angiogram and embolization. Past medical history, family history, social history, and allergies can be found in the patient's preoperative history and physical dictated on 05/12/2006 by Murray Gates. HOSPITAL COURSE: She was admitted to [facility] in 05/16/2006. She underwent embolization and angiogram on 05/15/[address] Martins. Estimated blood loss was 20 cc. There were no complications. She was transferred to [address] [place] [address] [address] procedure[address] Head CT was satisfactory. On postoperative day 1, her heparin was discontinued, and her femoral sheath was removed. She continued to do well on 05/17/2006 without complaint, and she was discharged to home without services. DISCHARGE STATUS: Stable. CONDITION AT DISCHARGE AND PLAN: Discharge to home. FOLLOWUP INSTRUCTIONS INCLUDING DIET AND ACTIVITY: See Dr. Martins in approximately 3 weeks. She may take a shower but she should keep her dressing clean and dry. She may remove the dressing and replace with a Band-Aid on Friday05/19/2006. She may resume a regular diet. She should avoid exercise, driving, housework, or return to work. AARON Maya MD [phone] CAD:[id number] J: [id number] CC:Murray Livingston MD, <Primary Care Physician> THIS DOCUMENT WAS ELECTRONICALLY AUTHENTICATED BY Susie Mays PA-C ON 05/30/2006 14:41:19 THIS DOCUMENT WAS ELECTRONICALLY AUTHENTICATED BY Jus Landon MD ON 08/27/2006 14:10:26 documented in this encounter Plan of Treatment Not on file documented as of this encounter Visit Diagnoses Not on filedocumented in this encounter Care Teams Website Admin Relationship Specialty Start Date End Date Murray Livingston PCP - General 07/11/14 documented as of this encounter
--- OUTSIDE RECORDS SUMMARY | 2025-07-13 12:13 | XMS_ITS | Encounter Summary ---
[facility] Address [address] [place] [address] Care Team Providers Care Perforator Name Role Phone Murray Asif Primary Care Provider [phone] Encounter Details Date Type Department Care Team (Late st Contact Info) Description 02/24/2012 Clinical Conversion Encounter GENERAL CONVERSION Afshan Martins MD Social History Tobacco Use Types Packs/Day Years Used Date Smoking Tobacco: Never Assessed Comments Unknown Sex and Gender Information Value Date Recorded Sex Assigned at Female 11/02/2018 8:08 AM EST Legal Sex Female 3:15 AM EST Gender Identity Female 11/02/2018 8:08 AM EST Sexual Orientation Not on file documented as of this encounter Miscellaneous Notes * Letter - In Sup MD Eliezer - 10/15/2014 9:59 PM EST [id number],[place]. February 24, 2012 MURRAY ASIF M.D. [address] [place] [address] RE: DAYAMI POOL #: [id number] : 1965 Visit ID: [id number] Dear Dr. Asif: Mrs Pool came back for followup today. 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 This was initially treated well with detachable coils in 2005. The followup angiogram in 2007 showed small recanalization of the base of the aneurysm. Since the recanalized portion was small, I decided to watch it rather than retreating it. She had followup skull x-rays and MRI examinations. The skull x-rays show a stable coil mesh in the ophthalmic artery aneurysm. Serial skull x-rays, including 2009 and today, 2011, show no evidence of any significant changes. Last angiogram was 2007. I have explained to Mrs Pool what I see on these studies. I suggested to have selective angiogram a year from now. That will be 5 years after the last angiogram. In case there is no significant change of the recanalized portion of the aneurysm, I will keep watching it. However, if there is any change of the recurrent lumen of the aneurysm, I may suggest her just to have retreatment. Thank you for letting me see her again. Sincerely, In Ashly Martins MD Department of Interventional Neuroradiology [phone] IC:NTS J: [id number] / [id number] Time spent in discussion with the patient is 20 minutes. CC: Candy Allred MD THIS DOCUMENT WAS ELECTRONICALLY AUTHENTICATED BY In Ashly Martins MD ON 02/28/2012 12:14:13 DAYAMI POOL # [id number] [facility] * [address] [place] [address] * [phone] Page 1 of 1 documented in this encounter Plan of Treatment Not on file documented as of this encounter Procedures Procedure Name Priority Date/Time Associated Diagnosis Comments XR SKULL < 4 VW Routine 02/24/2012 3:16 PM EDT documented in this encounter Results * XR Skull < 4 Vw (02/24/2012 3:16 PM EDT) Anatomical Region Laterality Modality Head Radiographic Natalie ging 02/24/2012 3:16 PM EDT Narrative 02/26/2012 11:04 AM EDT SKULL X-RAYS CLINICAL RESUME: THIS 47-YEAR-OLD FEMALE PATIENT WHO UNDERWENT COIL TREATMENT FOR A LARGE OPHTHALMIC ARTERY ANEURYSM ON THE LEFT SIDE. FOLLOWUP STUDY SHOWED EVIDENCE OF RECANALIZATION; HOWEVER, RECANALIZED PORTION OF THE ANEURYSM HAS BEEN STABLE. THE PATIENT COMES BACK FOR FOLLOWUP. FOUR VIEWS OF SKULL X-RAYS WERE TAKEN. THESE WERE COMPARED WITH PREVIOUS SKULL X-RAYS OF 2009. THERE HAS NOT BEEN ANY CHANGE OF THE COIL MESH ITSELF. THE COIL IS IN THE SAME CONFIGURATION AND SAME LOCATION. THIS INDICATES THAT RECANALIZED PORTION OF THE ANEURYSM IS STABLE. NO FURTHER COIL COMPACTION OR MIGRATION IS SEEN. CONCLUSION: STABLE COIL MESH IN THE RIGHT OPHTHALMIC ARTERY ANEURYSM WITH SMALL RECANALIZATION. This document was electronically signed by IN SUP. ELIEZER MD on 02/26/2012 11:04:00 Procedure Note Afshan Martins MD - 11/01/2014 SKULL X-RAYS CLINICAL RESUME: THIS 47-YEAR-OLD FEMALE PATIENT WHO UNDERWENT COIL TREATMENT FOR A LARGE OPHTHALMIC ARTERY ANEURYSM ON THE LEFT SIDE. FOLLOWUP STUDY SHOWED EVIDENCE OF RECANALIZATION; HOWEVER, RECANALIZED PORTION OF THE ANEURYSM HAS BEEN STABLE. THE PATIENT COMES BACK FOR FOLLOWUP. FOUR VIEWS OF SKULL X-RAYS WERE TAKEN. THESE WERE COMPARED WITH PREVIOUS SKULL X-RAYS OF 2009. THERE HAS NOT BEEN ANY CHANGE OF THE COIL MESH ITSELF. THE COIL IS IN THE SAME CONFIGURATION AND SAME LOCATION. THIS INDICATES THAT RECANALIZED PORTION OF THE ANEURYSM IS STABLE. NO FURTHER COIL COMPACTION OR MIGRATION IS SEEN. CONCLUSION: STABLE COIL MESH IN THE RIGHT OPHTHALMIC ARTERY ANEURYSM WITH SMALL RECANALIZATION. This document was electronically signed by IN SUP. ELIEZER MD on 02/26/2012 11:04:00 us In Ashly Martins MD IMG DIAGNOSTIC IMAGING ORDERABLE S Final Result documented in this encounter Visit Diagnoses Not on filedocumented in this encounter Care Teams Perforator Relationship Specialty Start Date End Date Miki Murray Aroldo PCP - General 07/11/14 documented as of this encounter
--- OUTSIDE RECORDS SUMMARY | 2025-07-13 12:13 | XMS_ITS ---
Author Organization [facility] [address] [facility] Address [address] [place] [address] Phone Care Team Providers Care Refractory Tile Helper Name Role Phone Bree Livingston MD Primary Care Provider [phone] High Risk Care Management Status:Ongoing (Active) Start date:03/09/2025 Enrollment date:03/29/2025 Enrollment reason:Identified as high-risk Related social drivers of health:Housing Instability, Food Access & Nutrition, Access to Healthcare, TH Health Literacy, Financial Risk, Transportation, Social Isolation, Food Risk Case Team Name Relationship Phone Danika Orozco RN(Responsible Staff) Care Killian hwang Continued Care and Services Coordination
--- OUTSIDE RECORDS SUMMARY | 2025-07-13 12:13 | XMS_ITS | Encounter Summary ---
Author Organization [facility] Address [address] [place] [address] Care Team Providers Care Livestock Feeder Name Role Phone Bree Livingston MD Primary Care Provider [phone] Encounter Details Date Type Department Care Team ([facility] st Contact Info) Description 07/08/2025 Telephone Adult Medicine [facility] [address] [place] [address] Ruben Benson, RN Social History Tobacco Use Types Packs/Day Years [...] for your loved ones. For example, child caregiver or elderly care for an [...] AM EDT documented as of this encounter Progress Notes * Ruben Benson RN - 07/08/2025 8:32 AM EST Pt is in need of an ER f/u was seen at [facility] yesterday for abdominal pain. documented in this encounter Plan of Treatment Upcoming Encounters Date Type Department Care Team (Late st Contact Info) Description 08/04/2025 10:15 AM EST Appointment Radiology Department - [address] [address] Scheduled Procedures Name Priority Associated Diagnoses Date/Ti [...] documented as of this encounter Care Teams Livestock Feeder Relationship Specialty Start Date End Date Bree Livingston MD [address] [place] [address] PCP - General 06/01/03 documented as of this encounter
--- OUTSIDE RECORDS SUMMARY | 2025-07-13 12:13 | XMS_ITS | Clinical Summary ---
Author Organization [facility] Address [address] [place] [address] Care Team Providers Care Stores Assistant Name Role Phone Murray Livingston Primary Care Provider Allergies Active Allergy Reactions Criticality Noted Date Comments Ciprofloxacin Other (See Comments) 12/22/2012 IV administered, pain rash immediately after administration Penicillins Other (See Comments) High 12/22/2012 Rash and throat closing sensation and swelling Sulfa (Sulfonamide Antibiotics) Other (See Comments) 12/22/2012 Medications * This document contains information received from the source organization and may not represent a complete record from that organization. KLONOPIN 1 mg tablet TAKE 1 TABLET AT BEDTIME. 12/22/2012 Active SYNTHROID 50 mcg tablet TAKE 1 TABLET DAILY DIRECTED. 03/08/2013 Active multivitamin capsule TAKE 1 CAPSULE DAILY. 03/08/2013 Active VIVELLE-DOT 0.1 mg/24 hr applies one every 3 days 03/29/2014 Active aspirin 325 MG EC tablet Take 1 tablet daily 03/25/2014 Active Text: Ibuprofen 600 MG Oral Tablet TAKE 1 TABLET 3 TIMES DAILY NEEDED. 12/22/2012 Active methotrexate 25 mg/mL injectionIndica tions:one doseweekly Inject 12.5 mg into the shoulder, thigh, or buttocks once. Active Active Problems Problem Noted Date Diagnosed Date Nonruptured cerebral aneurysm 05/25/2014 Overview (10/31/2014): Cerebral Artery Aneurysm Hypothyroidism 03/29/2014 Overview (10/31/2014): Hypothyroidism Social History Tobacco Use Types Packs/Day Years Used Date Smoking Tobacco: Former Smokeless Tobacco: Never Alcohol Use Standard Drinks/Week Comments No 0 (1 standard drink = 0.6 oz pur e alcohol) Comments No Sex and Gender Information Value Date Recorded Sex Assigned at Female 11/02/2018 8:08 AM EST Legal Sex Female 3:15 AM EST Gender Identity Female 11/02/2018 8:08 AM EST Sexual Orientation Not on file Last Filed Vital Signs Vital Sign Reading Time Taken Comments Blood Pressure 93/60 11/02/2018 2:45 PM EST Pulse 65 11/02/2018 2:45 PM EST Temperature 36.1 C (97 F) 11/02/2018 2:45 PM EST Respiratory Rate 18 11/02/2018 2:45 PM EST Oxygen Saturation 98% 11/02/2018 2:45 PM EST Inhaled Oxygen Concentration - - Weight 75 kg (165 lb 4.8 oz) 04/12/2015 10:40 AM EDT Height 162.6 cm (5' 4 ) 04/12/2015 10:40 AM EDT Body Mass Index 28.37 04/12/2015 10:40 AM EDT Plan of Treatment Not on file Medical Devices Implanted Type Area Property Management Coordinator Device Identifier Shelf Expiration Date Model / Serial / Lot Femoral Closure Device- 9 Implanted:Qty: 1 on 11/02/2018 by Silviano Landeros MD Septal Defect Closure Device 05/31/2020 [facility] / / Description:RT FEMORAL ART.C LOSURE DEVICE Insurance [facility] MEDICARE Advance Directives Documents on File Type Date Recorded Patient Rack Cleaner Expl anation Health Care Proxy 04/12/2014 12:00 AM Heal th Care Proxy Health Care Proxy 04/02/2014 12:00 AM Healt h Care Proxy Health Care Proxy 05/15/2006 12:00 AM Heal Care Proxy Care Teams Stores Assistant Relationship Specialty Start Date End Date Murray Livingston PCP - General 07/11/14
--- OUTSIDE RECORDS SUMMARY | 2025-07-13 12:13 | XMS_ITS | Encounter Summary ---
Author Organization [facility] Address [address] [place] [address] Care Team Providers Care Jewel Sorter Name Role Phone Bree Livingston MD Primary Care Provider Encounter Details Date Type Department Care Team (Late st Contact Info) Description 04/29/[address] [facility] - Main Lab [address] [facility] [place] [address] Madeline Das PA [address] [place] [address] Benign essential microscopic hematuria Social History Tobacco Use Types Packs/Day Years [...] for your loved ones. For example, children's author or elderly care for an older adult? [...] Upcoming Encounters Date Type Department Care Team ([facility] st Contact Info) Description 08/04/2025 10:15 AM EST Appointment Radiology Department [address] [address] Scheduled Procedures Name Priority Associated Diagnoses Date/Ti me DECOMPRESSION LUMBAR Spinal stenosis, lumbar region without neurogenic claudication documented as of this encounter Goals Goal Patient Goal Type Associated Problems Recent Progress Patient-Stated? Author Patient has access to needed care Danika Begum, MICHAEL Note: 03/29/25 appointment requested to discuss recent lab values and need for specialist referrals to follow up on medical concerns 05/05/24 referral received and we discussed who to call. Pt plans to call both [facility] and the neurosurgeon she was referred to documented as of this encounter Procedures Procedure Name Priority Date/Time Associated Diagnosis Comments NON-GYNECOLOGIC CYTOLOGY Routine 04/14/2025 12:00 AM EDT Benign essential microscopic hematuria documented in this encounter Results * Non-gynecologic cytology (04/14/2025 12:00 AM EDT) Final Diagnosis A. Urine, Voided, (): Negative for high grade urothelial carcinoma. Results of UroVysion fluorescence in situ hybridization (FISH) testing: CEP3: Normal CEP7: Normal CEP17: Normal LSI 9p21: Normal Interpretation: Normal profile Controls stained appropriately. Note: The results are intended as a screening device and should be interpreted in association with other clinical and pathological findings. 05/10/2025 10:54 AM EDT [facility] Specimen A Adequacy Satisfactory for evaluation 05/10/2025 10:54 AM EDT [facility] Clinical Information Benign essential microscopic hematuria R31.1 Urine Cytology/FISH (now) 05/10/2025 10:54 AM EDT [facility] Gross Description A. Urine, Voided, (): Received one ThinPrep slide for cytology and one ThinPrep slide for UroVysion FISH 05/10/2025 10:54 AM [facility] Disclaimer Unless otherwise specified, all tissue is 10% NB formalin fixed and paraffin embedded. Technical pathology services provided by [facility] at [address] [place] [address] [address], [place] [address] (CLIA #[id number]/Leann Stanford MD, Wrapper Caser) 05/10/2025 10:54 AM EDT [facility] Urine Urine specimen from urethra / Unknown 04/14/2025 04/29/2025 2:11 PM EDT us [facility] CYTOLOGY ORDERABLES Final Result [facility] [address] [place] [address], documented in this encounter Visit Diagnoses Diagnosis Benign essential microscopic hematuria documented in this encounter Additional Health Concerns Assessment Noted Time PHQ-9 Depression Total Score: 20 025 2:16 PM EST documented as of this encounter Care Teams Jewel Sorter Relationship Specialty Start Date End Date Bree Livingston MD [address] [place] [address] PCP - General 06/01/03 documented as of this encounter
--- OUTSIDE RECORDS SUMMARY | 2025-07-13 12:13 | XMS_ITS | Encounter Summary ---
Author Organization [facility] Address [address] [place] [address] Care Team Providers Care Rolling Machine Operator Automatic Name Role Phone Murray Asif Primary Care Provider [phone] Encounter Details Date Type Department Care Team (Late st Contact Info) Description 05/25/2014 Clinical Conversion Encounter GENERAL CONVERSION Afshan Martins [...] Letter - In Sup MD Eliezer - 10/28/2014 12:00 AM EST [id number],DIANA [place], [place]. May 25, 2014 MURRAY ASIF MD [address] [place] [address] RE: DAYAMI POOL #: [id number] : 1965 Visit ID: [id number] Dear Dr. Asif: This is a follow-up note on Mrs. Pool who underwent a repeated treatment for small recurrent aneurysm of left internal carotid artery at the ophthalmic artery origin. We had tried to close this recurrent aneurysm with a Pipeline device, a flow diverter previously; however, she developed a severe vasospasm of left internal carotid artery when we placed microcatheter to deploy a flow diverter, Pipeline. We had to withdraw all the materials and stop the procedure. At this time, we planned to try it again with a Pipeline device with antispasmodic drug. She was placed on antispasmodic drug before the procedure. In spite of this preparation, she still developed severe vasospasm of the left internal carotid artery at the time of the procedure. Therefore, we had to abandon the attempt to place a Pipeline device. Instead, we placed a flexible stent across the neck of the aneurysm and then placed 2 coils. This closed residual lumen well. There is a small dog ear of the neck with filling; however, I expect that this will thrombose as well. She came back today for followup. She stated that she has a little bit more drooping of the eyelid; however, the rest of the facial nerve seems to be working properly. She does not have any other focal neurological deficit on my gross examination. I will follow her eyelid drooping closely. In case Anyway, the residual lumen was successfully closed by stent-assisted coiling. I will see her again 6 months from the treatment with skull x-rays. We would do followup angiogram a year from the treatment. Unfortunately, we could not use Pipeline device; however, we were able to close this aneurysm by stent-assisted coiling. Thank you for referring this patient to me. PS: She has been on dual platelet medication after stent placement. She will continue to take Plavix for 3 months from the treatment and aspirin until a year after treatment. She may continue to take a baby aspirin following that. Sincerely, Afshan Martins MD Department of Interventional Neuroradiology [phone] IC:nts J: [id number] / [id number] Time spent in discussion with the patient is 20 minutes. CC: MD Candy Gore MD THIS DOCUMENT WAS ELECTRONICALLY AUTHENTICATED BY Afshan Martins MD ON 06/01/2014 11:03:12 DAYAMI POOL # [id number] [facility] * [address] [place] [address] * [phone] Page 2 of 2 documented in this encounter Plan of Treatment Not on file documented as of this encounter Visit Diagnoses Not on filedocumented in this encounter Care Teams Rolling Machine Operator Automatic Relationship Specialty Start Date End Date Murray Asif PCP - General 07/11/14 documented as of this encounter
--- OUTSIDE RECORDS SUMMARY | 2025-07-13 12:13 | XMS_ITS | Encounter Summary ---
Author Organization [facility] Address [address] [place] [address] Care Team Providers Care Milk Vendor Name Role Phone Murray Livingston Primary Care Provider Encounter Details Date Type Department Care Team (Late st Contact Info) Description 03/08/2013 Clinical Conversion Encounter GENERAL CONVERSION Brijesh Gonsalez MD Social History Tobacco Use Types Packs/Day Years Used Date Smoking Tobacco: Never Assessed Comments Unknown Sex and Gender Information Value Date Recorded Sex Assigned at Female 11/02/2018 8:08 AM EST Legal Sex Female 3:15 AM EST Gender Identity Female 11/02/2018 8:08 AM EST Sexual Orientation Not on file documented as of this encounter Progress Notes * Brijesh Gonsalez MD - 10/18/2014 7:06 AM EST [id number]. Reason For Visit Ms. Pool presents for preoperative history and physical examination prior to cerebral angiography and neural interventional procedure. She is accompanied by her daughter for this visit. She is previously known to the interventional neuroradiology clinic here from prior evaluations and endovascular treatment of intracranial aneurysms. 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 The patient describes short-term memory problems, occasional word finding difficulty and non-localizable sensorimotor disturbances. An MRI at that time showed a left ICA paraclinoid aneurysm. This aneurysm was treated with endovascular coil embolization by Dr. Martins in May of 2006. She had followup cerebral angiogram in 2007 at that time study revealed slight recanalization of the anterior part of the aneurysm. Followup serial skull x-rays showed no evidence of significant change in the coil mesh. It was determined that the aneurysm would be monitored with a selective cerebral angiogram one year later. On followup cerebral angiogram in November of 2012 the previously seen recanalized portion of the aneurysm was increased compared to previous angiogram in 2007, the coil mesh itself is unchanged, indicating regrowth of the aneurysm itself. Today, she did not voice any new specific complaints, but does continue to complain of some mild word finding difficulties and short-term memory issues. She does say that she is under some stress due to the fact that her recently from sepsis. There is no history specifically suggestive of a TIA, stroke, intracranial hemorrhage or aneurysm rupture. y Review of Systems Negative except as mentioned above. Patient denies shortness of breath, chest pain, bowel or bladder symptoms, skin rash, bleeding issues. Patient states that she has gained some weight. Active Problems Cerebral Artery Aneurysm 437.3 Cerebral aneurysm regrowth Past Medical History -Left internal carotid-ophthalmic artery origin aneurysm as described above; status post endovascular coiling embolization in 2005. -Anxiety. -Diverticulosis; status post partial colectomy. -Migraines: Described as diffuse, severe, throbbing pain, associated with nausea, and photophobia and phonophobia. Relieved with Botox injections which last 5-6 months. There is no associated focal neurological deficits with her migraine headaches. -Bilateral carpal tunnel syndrome. -Gastroesophageal reflux disease. Surgical History -Partial thyroidectomy for benign tumor. Family History There is no history of intracranial aneurysms or intracranial hemorrhage or stroke. Social History The patient lives in [facility] with her daughter and son. She is a since May of 2012 when her unexpectedly from sepsis. 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 She has a [id number] history of smoking but recently quit. Occasionally drinks alcohol. Denies drug abuse. Current Meds Aspirin 325 MG Oral Tablet; TAKE 1 TABLET DAILY; Therapy: 08Mar2013 to Recorded; Dispense: 0 Days ; #: Sufficient Tablet; Refill: 0; Record; Last Updated By: Kaykay Rush ClonazePAM 1 MG Oral Tablet; TAKE 1 TABLET AT BEDTIME; Therapy: (Recorded:22Dec2012) to Recorded; Dispense: 0 Days ; #: Sufficient Tablet; Refill: 0; Record; Last Updated By: Jaqui Chavez Ibuprofen 600 MG Oral Tablet; TAKE 1 TABLET 3 TIMES DAILY NEEDED; Therapy: (Recorded:22Dec2012) to Recorded; Dispense: 0 Days ; #: Sufficient Tablet; Refill: 0; Record; Last Updated By: Jaqui Chavez Levothyroxine Sodium 50 MCG Oral Tablet; TAKE 1 TABLET DAILY DIRECTED; Therapy: 08Mar2013 to Recorded; Dispense: 0 Days ; #: Sufficient Tablet; Refill: 0; Record; Last Updated By: Kaykay Rush Multivitamins Oral Capsule; TAKE 1 CAPSULE DAILY; Therapy: 08Mar2013 to Recorded; Dispense: 0 Days ; #: Sufficient Capsule; Refill: 0; Record; Last Updated By: Kaykay Rush -Clonazepam 1 mg each bedtime. -Levothyroxine 50 mcg daily. -Aspirin 325 mg daily. -Ibuprofen 800 mg 3 times a week. -Hormone patch. Allergies Ciprofloxacin HCl TABS Penicillins Sulfa Drugs Penicillin, ciprofloxacin, sulfa. Vitals [facility] Vitals Data Includes: Current Encounter [id number] 09:50AM Systolic 108 Diastolic 75 Heart Rate 84 BMI Calculated 25.8 BSA Calculated 1.76 Height 5 ft 4.5 in Weight 152 lb 15.97 oz Height Source Actual Height Weight Source Actual Weight Respiration 18 O2 Saturation 98 Temperature 98 F Vital signs are within normal limits. Physical Exam Patient was well-developed, no acute distress. Neuro: Alert and oriented x3, speech-fluent, naming/repetitions/comprehension/fund of knowledge/calculation: Intact Cranial nerves: Visual garcia: Intact, pupils equal round reactive to light, extraocular eye movements intact, V1 to V3 intact to touch, no facial weakness, hearing grossly intact bilaterally, palate elevation symmetric, tongue midline, shoulder shrugs 5 out of 5 bilaterally, Motor: 5 out of 5 in the upper and lower extremities proximally and distally. Sensation: Intact to touch in the upper and lower extremities bilaterally. Cerebellar: No dysmetria on finger to nose, no dysdiadochokinesis. Gait: Normal base, stride, arm swing, turning. 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 Plan -Cerebral angiogram on 03/13/2013. -Flow divertor stent placement of previously coiled aneurysm. -Plavix 75mg daily 5 days prior to procedure. Prescription was mailed to patient. -Patient is to continue Aspirin 325mg daily before and after procedure. Appointment Time Appointment time was 45 minutes. Attending of record is In Mikael Hoffman M.D. Interventional Neuroradiology Fellow PGY-6 Pager: [phone] CC: In Ashly Martins M.D. Electronically signed by : BRIJESH GONSALEZ FELLOW; Apr 15 2013 5:08PM (Author) Electronically signed by : BRIJESH GONSALEZ FELLOW; Apr 20 2013 7:06AM (Author) Electronically signed by : BENJAMIN ALLEN; Apr 22 2013 3:43PM (Author) Electronically signed by : BENJAMIN ALLEN; Apr 28 2013 2:33PM (Author) Electronically signed by : BENJAMIN ALLEN; Nov 03 2013 8:05AM (Author) Electronically signed by : JOLEEN MARTINS MD; Mar 01 2014 10:56AM documented in this encounter Plan of Treatment Not on file documented as of this encounter Visit Diagnoses Not on filedocumented in this encounter Care Teams Milk Vendor Relationship Specialty Start Date End Date Murray Livingston PCP - General 07/11/14 documented as of this encounter
--- OUTSIDE RECORDS SUMMARY | 2025-07-13 12:13 | XMS_ITS | Encounter Summary ---
Author Organization [facility] Address [address] [place] [address] Care Team Providers Care Clinical Data Specialist Name Role Phone Murray Livingston Primary Care Provider [phone] Encounter Details Date Type Department Care Team (Late st Contact Info) Description 06/07/2025 Results Follow-Up [facility] [address], [place] [id number] Link Trainer Maintenance Worker: Michell Mcghee MD [address] [place] [address] Social History Tobacco Use Types Packs/Day Years [...] Encounter Note - Michell Villar MD - 06/07/2025 12:30 PM EDT Hi Mrs. Pool, Your labs are overall stable but continue to show a few more red blood cells in your urine than normal. Would you be open to see Urology to further explore that? I can place a referral if you agree. Best regards, Michell Villar MD Host[employer] [facility] Division of Rheumatology documented in this encounter Plan of Treatment Upcoming Encounters Date Type Department Care Team (Late st Contact Info) Description 07/14/2025 2:15 PM EST Follow-Up [address] [id number] Felix Prakash MD [address] [place] [address] [id number] 09/27/2025 12:00 PM EST Office Visit [address] [address] Rachelle Guadalupe, OD [address] [place] [address] [id number] 01/20/2026 2:20 PM EDT Follow-Up [facility] [address] [place] [id number] Link Trainer Maintenance Worker: Michell Mcghee MD [address] [place] [id number] 02/01/2026 2:00 PM EDT Follow-Up [address] [id number] Celsa Sanford MD [address] [place] [address] [id number] documented as of this encounter Visit Diagnoses Not on filedocumented in this encounter Care Teams Clinical Data Specialist Relationship Specialty Start Date End Date Murray Liivngston PCP - General Internal Medicine 02/24/23 documented as of this encounter
--- OUTSIDE RECORDS SUMMARY | 2025-07-13 12:13 | XMS_ITS | Clinical Summary ---
Author Organization [facility] [address] [facility] lding Address [address] [place] [address] Phone Care Team Providers Care Shoe Cementer Name Role Phone Bree Livingston MD Primary Care Provider [phone] Allergies Active Allergy Reactions Criticality Noted Date Comments Adhesive Rash 03/03/2023 Ciprofloxacin Rash,Pain 06/18/2022 Hydroxychloroquine Unknown 06/29/2018 Retinal damage Nickel Rash 01/20/2023 Sulfa (Sulfonamide Antibiotics) Rash 10/02 Sulfasalazine Unknown 10/16/2005 Sulfate Ion 06/18/2022 Medications FLUORIDE TOOTHPASTE DENT Dentifrices (FLUORIDE TOOTHPASTE DT) Place onto teeth. Active immune globulin (HIZENTRA) (20%) solution infusion Inject under the skin once a week. Active clonazePAM (KlonoPIN) 1 mg tablet Take 1 tablet (1 mg total) by mouth 2 (two) times a day as needed for anxiety. Active albuterol sulfate (ProAir RespiClick) 90 mcg/actuation [...] each day. 90 each 07/09/20 24 Active doxycycline (ADOXA) 50 mg tablet Take 1 tablet (50 mg total) by mouth 1 (one) time each day. Take with a full glass of water and do not lie down for at least 30 minutes after. Active cevimeline (EVOXAC) 30 mg capsuleIndicat ions:Sjogren syndrome, unspecified (CMS/HCC V24) TAKE 1 CAPSULE BY MOUTH THREE TIMES A DAY 270 capsule 02/09/20 25 Active Additional Information Patient taking differently:30 mg oral3 times daily, Reported on 05/18/2025 CombiPatch 0.05-0.14 mg/[address] 1 patch on the skin 2 (two) times a week. Active Breo Ellipta 100-25 mcg/dose inhaler Inhale 1 puff by mouth 1 (one) time each day. 07/07/20 24 Active levothyroxine (SYNTHROID, LEVOTHROID) 50 mcg tablet TAKE 1 TABLET BY MOUTH EVERY DAY 90 tablet 1 04/11/20 25 Active pantoprazole (PROTONIX) 40 mg EC tabletIndicati ons:Gastro-eso phageal reflux disease without esophagitis TAKE 1 TABLET BY MOUTH EVERY DAY 90 tablet 1 04/28/20 25 Active aspirin 81 mg EC tablet Take 1 tablet (81 mg total) by mouth. Active doxycycline hyclate (VIBRA-TABS) 100 mg tablet take 0.5 tablets (50 mg total) by mouth once a day. 04/06/20 25 Active fluoride, sodium, 1.1 % paste BRUSH TEETH TWICE A DAY WITH DIME SIZE AMOUNT 02/17/20 25 Active immun glob G,IgG,/pro/IgA 0-50 (HIZENTRA SUBQ) 0 Refills, Maintenance, 07/08/22 13:29:00 EST, Partial fill upon patient request if the prescription is for a schedule II opioid drug. 07/08/20 Active Miebo, PF, 100 % drops Administer 1 drop into affected eye(s) 2 times daily. 01/27/20 25 Active Tyrvaya 0.03 mg/spray spray, metered, non-aerosol Administer 1 spray into each nostril 2 (two) times a day. Active meloxicam (MOBIC) 15 mg tablet Take 1 tablet (15 mg total) by mouth 1 (one) time each day if needed for moderate pain. 90 tablet 07/11/20 25 Active meloxicam (MOBIC) 15 mg tablet Take 1 tablet (15 mg total) by mouth daily. 025 Discontinued azithromycin (ZITHROMAX) 250 mg tablet TAKE 1 TABLET ON FRIDAY, FRIDAY AND Friday01/26/20 025 Discontinued Botox 100 unit recon soln injection SMARTSI Unit(s) IM Every 3 Months 06/19/20 025 Discontinued topiramate (TOPAMAX) 25 mg tablet Take 1 tablet (25 mg total) by mouth 1 (one) time each day. 025 Discontinued Active Problems Problem Noted Date Diagnosed Date Spinal stenosis, lumbar claritza on without neurogenic claudication 05/12/2025 Lumbar stenosis with neurogenic claudication 05/2025 Assessment & Plan (05/10/2025 3:52 PM EDT): I reviewed the imaging studies in detail with Ms. Flores using a spine model discussed the extent of degenerative disc and facet disease leading to severe central stenosis at L4-5. She has degenerative changes at other levels but L4-5 is the most severe and I believe the cause of her symptoms of claudication. She has become quite inactive as she cannot tolerate walking to do any outside activities. She has had physical therapy and cortisone injections in the past without benefit. We discussed the options for treatment including repeating injections or physical therapy or considering surgery. I believe she is a good candidate for an L4-5 decompression. We discussed the details, risks, benefits and anticipated postoperative course, all questions were answered and she wishes to proceed. Abnormal MRI, cervical spine 05/10/2025 Assessment & Plan (05/10/2025 4:12 PM EDT): I discussed with Ms. Pool that the cervical spine MRI from last year did show cervical disc herniation however, this is on the left at C6-7 and would not explain her right hand symptoms. This may have been the reason why no surgery was offered to her in the past. She will plan to follow-up with a hand surgeon. Gastroesophageal reflux disease without esophagi tis 01/13/2025 Hypothyroidism 01/13/2025 KEITH (headache) 01/13/2025 Diverticulitis 10/13/2024 Neutrophilia 06/23/2022 Resolved Problems Problem Noted Date Diagnosed Date Resolved Date Diabetes mellitus, type 2 (C MS/HCC V24, CMS/HCC V28) 01/13/2025 01/13/2025 Encounters Date Type Department Care Team Description 07/11/2025 1:30 PM EST Office Visit Adult [facility] [address] [place] [phone] Lalit Paulson PA Right upper quadrant pain (Primary Dx); Intercostal pain; Leukocytosis, unspecified type 07/08/2025 Telephone Adult [facility] [address] [place] [phone] Ruben Benson RN 05/26/2025 Telephone Neurosurgery [facility] [address] [phone] [place] 05/10/2025 2:30 PM EDT Consult [facility] [address] [phone] Becky Storm MD Lumbar stenosis with neurogenic claudication (Primary Dx); Abnormal MRI, cervical spine 04/29/2025 Lab Requisition [facility] [address] [place] [phone] Madeline Das PA Benign essential microscopic hematuria 04/14/2025 Lab Requisition [facility] [address] [place] [phone] Madeline Das PA Frequency of micturition 04/12/2025 9:51 AM EDT - 04/12/2025 11:59 PM EDT Hospital Encounter [facility] [address] [place] [phone] 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, 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 Pharyngoesophageal dysphagia Discharge Disposition: Home or Self Care from Last 3 Months Immunizations Immunization Administration Dates Next Due H1N1 Inj Preservative Free 08/16/2009 Hepatitis B (Lstbynx-M-Uocmz , Recombivax HB-Adult) 19yo and older 07/11/2017,09/06/2008,04/15/2008,2007 Influenza Quadravalent, MDCK , 0.5ml, preservative free (Flucelvax) 6mo and older 04/29/2023,05/21/2018 Influenza Quadrivalent, 0.5m l, preservative free (Fluarix; FluLaval; Fluzone) ages 6mo and older (Afluria) 3yo and older 06/21/2022,05/17/2021,05/08/2020,2018,06/26/2017,07/13/2016 Influenza trivalent, MDCK, 0 .5mL, preservative free (Flucelvax) 6mo and older 04/30/2024 Influenza trivalent, recombi nant, 0.5mL, preservative free (Flublok) 9yo and older 04/26/2025 Influenza trivalent, with preservative (Fluzone; Afluria) 6mo and older 05/21/2024,05/22/2015,07/07/2014,2011,06/07/2010,06/08/2009,06/16/2008,1 09/23/2006 Influenza, Unspecified 05/01/2024,05/08/2022, MMR, measles mumps and rubel la Live (Priorix; M-M-R II) 12mo and older 09/06/2008,04/15/2008,03/16/2008 PPD Test 03/16/2008 Pfizer SARS-CoV-2 COVID-19, mRNA, LNP-S, preservative free 01/09/2021,12/19/2020 Pneumococcal conjugate 20 va lent (Prevnar 20, PCV 20) 2mo and older 11/28/2021,11/28/2021 RSV, bivalent, protein subun it RSVpreF, 0.5mL, Preservative Free (Arexvy) 50yo and older 04/29/2023 Tdap Tetanus diptheria acell ular pertussis (Boostrix; Adacel) 7yo and older 10/17/2017,03/11/2008 Zoster recombinant (Shingrix ) 19yo and older 02/16/2025,11/28/2021 Surgical History Surgery Date Site/Laterality Comments SECTION PROCEDURE: HISTORICAL DELIVERY OTHER SURGICAL HISTORY 2003 PROCEDURE: MO COLECTOMY PARTIAL W/ANASTOMOSIS; COMMENT: Diverticulitis CHOLECYSTECTOMY PROCEDURE: HISTORICAL CHOLECYSTECTOMY OTHER SURGICAL HISTORY 1969 PROCEDURE: MO EXCISION [...] COMMENT: diverticulosis OTHER SURGICAL HISTORY 04/2016 PROCEDURE: MO LAPAROSCOPY SLING OPERATION STRESS INCONT UPPER GASTROINTESTINAL ENDOSCOPY 08/08/2016 PROCEDURE: MO UPPER GI ENDOSCOPY PERFORMED; COMMENT: Normal upper GI findings, not on H2 saurabh or PPI treatment. BLADDER SURGERY PROCEDURE: HISTORICAL BLADDER SURGERY; COMMENT: implant for frequency BREAST BIOPSY 2009 Left PROCEDURE: BX BREAST; PERC NEEDLE CORE W/IMAG GUID; COMMENT: lt. breast bx.-benign APPENDECTOMY 05/02/2024 - 05/31/2024 CATARACT EXTRACTION Medical History Medical History Date Comments Normal delivery DX:Normal delive ry Aneurysm of unspecified site ([facility]/HCC V24) 05/2006 DX:Aneurysm of unspecified s ite ([facility]); COMMENT: [facility], coils, not able to clip Depressive disorder, not els ewhere classified DX:Depressive disorder, not elsewhere classified; COMMENT: Dr Gladys lindo Cervical cancer (CMS/HCC V24 , [facility]/HCC V28) DX:Cervical cancer ([facility]); CO MMENT: in situ Diverticulitis DX:Diverticuliti s; COMMENT: s/p [...] migraine; COMMENT: Childhood onset. Chronic botox rx. Adverse effect of anesthesia BP drops Shortness of breath Bronchiectasis (CMS/[facility] V24, CMS/[facility] V28) Anxiety Chronic pain disorder Dizziness Arthritis Joint pain Family History Medical History Relation Name Comments Breast cancer Aunt m 40s Cataracts Aunt m 40s Diabetes Father Pancreatic cancer Father at 42 Breast cancer Maternal Grandmother 60s Cataracts Maternal Grandmother 60s Other cancer Mother Other: Appendix ca Mother Breast cancer Other 1 2 p aunts 60s Breast cancer Other 2 m aunt Breast cancer Paternal Grandmother 98 Cataracts Paternal Grandmother 98 Glaucoma Paternal Grandmother 98 Other: anxiety Sister and brother COPD Son 1 Depression Son 1 Asthma Son 2 Blindness Neg Hx Colon cancer Neg Hx Macular degeneration Neg Hx Strabismus Neg Hx Relation Name Status Comments Aunt m 40s Alive Father (Age 42) Maternal Grandmother 60s Mother Alive Other 1 2 p aunts 60s Other 2 m aunt Alive Paternal Grandmother 98 Sister Son 1 Son [...] for your loved ones. For example, child nutrition assistant or elderly care for an older adult? [...] Orientation Straight 01/20/2025 11 :47 AM EDT Obstetrics History Para Term AB IAB SAB Ectopic Multiple Livin g Live Births 3 3 3 3 Date Outcome GA Total Labor Labor/2nd/3rd Weight Sex Type Anes PTL Shirley A1 A5 Name Clin Term Term Term Last Filed Vital Signs Vital Sign Reading Time Taken Comments Blood Pressure 104/72 07/11/2025 1:17 PM EST Pulse 97 07/11/2025 1:17 PM EST Temperature 36.2 C (97.2 F) 07/11/2025 1:17 PM EST Respiratory Rate 20 01/13/2025 10:29 AM EDT Oxygen Saturation 99% 02/22/2025 2:37 PM EDT Inhaled Oxygen Concentration - - Weight 72.1 kg (159 lb) 07/11/2025 1:17 PM EST Height 160 cm (5' 3 ) 05/18/2025 3:00 PM EDT Body Mass Index 28.17 05/18/2025 3:00 PM EDT Plan of Treatment Upcoming Encounters Date Type Department Care Team (Late st Contact Info) Description 08/04/2025 10:15 AM EST Appointment Radiology Department [address] [phone] Scheduled Procedures Name Priority Associated Diagnoses Date/Ti me DECOMPRESSION LUMBAR Spinal stenosis, lumbar region without neurogenic claudication Health Maintenance Due Date Last Done Comments COVID-19 Vaccine (3 - Pfizer risk series) 02/06/2021 01/09/2021, 12/19/2020 HIV Screening 08/09/2022 Lung Cancer Screening (Low Dose CT) 08/09/2022 Medicare Annual Wellness Visit 08/09/2022 Social Influencers of Health Screening 03/29/2026 03/29/2025 Breast Cancer Screening 03/02/2027 03/02/20 25, 02/07/2022, 02/05/2021, Additional history exists DTaP,Tdap,and Td Vaccines (3 - Td or Tdap) 10/17/2027 10/17/2017, 03/11/2008 Cervical Cancer Screening: HPV 07/28/2028 07/28/2023 Cholesterol Screening (Lipid Panel) 04/21/2029 04/21/2024 Colorectal Cancer Screening: Colonoscopy 06/26/2030 06/26/2020 MMR Vaccines Aged Out 09/06/2008, 04/01, 03/16/2008 No longer eligible based on patient's age to complete this topic Hepatitis B Vaccines Completed 07/11/2017, 09/06/2008, 04/15/2008, Additional history exists Pneumococcal Vaccine: 50+ Years Completed 11/28/2021, 11/28/2021 Hepatitis C Screening Completed 04/22/2023, 018 RSV Immunization Adult Patients Completed 04/29/2023 Depression Screening Completed 09/20/2024 Zoster Vaccines Completed 02/16/2025, 11/28/2021 Influenza Vaccine Completed 04/26/2025, , 05/01/2024, Additional history exists HIB Vaccines Aged Out [...] on patient's age to complete this topic Goals Goal Patient Goal Type Associated Problems [...] US. Also awaiting a UA culture result. Procedures Procedure Name Priority Date/Time Associated Diagnosis Comments NON-GYNECOLOGIC CYTOLOGY Routine 04/14/2025 12:00 AM EDT Benign essential microscopic hematuria CULTURE URINE Routine 04/14/2025 12:00 AM EDT Frequency of micturition XR BARIUM SWALLOW WITH VIDEO AND SPEECH Routine 04/12/2025 10:29 AM EDT Pharyngoesophageal dysphagia MG MAMMO DIGITAL SCREENING W DANIEL BILAT Routine 03/02/2025 4:01 PM EDT Screening mammogram, encounter for from Last 3 Months or Most Recently Relevant to Health Maintenance Results * Culture urine (04/14/2025 12:00 AM EDT) Culture, Urine 10,000-49,000 CFU/mL Mixed urogenital staci, no uropathogens present. Suggest repeat specimen if clinically indicated. 04/15/2025 1:36 PM EDT [facility] Urine Urine specimen obtained by clean catch procedure / Unknown 04/14/2025 04/14/2025 5:55 PM EDT us [facility] MICROBIOLOGY - GENERAL ORD ERABLES Final Result [facility] [address] [place] [address], * Non-gynecologic cytology (04/14/2025 12:00 AM EDT) [...] and pathological findings. 05/10/2025 10:54 AM EDT [facility] Specimen A Adequacy Satisfactory for evaluation 05/10/2025 10:54 AM EDT [facility] Clinical Information Benign essential microscopic hematuria R31.1 Urine Cytology/FISH (now) 05/10/2025 10:54 AM EDT [facility] Gross Description A. Urine, Voided, (): Received one ThinPrep slide for cytology and one ThinPrep slide for UroVysion FISH 05/10/2025 10:54 AM EDT [facility] Disclaimer Unless otherwise specified, all tissue is 10% NB formalin fixed and paraffin embedded. Technical pathology services provided by [facility] at [address], [place] [address] (CLIA #[id number]/Leann Stanford MD, Clerk Cashier) 05/10/2025 10:54 AM EDT [facility] Urine Urine specimen from urethra / Unknown 04/14/2025 04/29/2025 2:11 PM EDT us Madeline [facility] CYTOLOGY ORDERABLES Final Result [facility] [address] [place] [address], * XR Barium Swallow with Video and Speech (04/12/2025 10:29 AM EDT) Anatomical Region Laterality Modality Head and Neck Radiographic Natalie ging 04/12/2025 12:3 3 PM EDT Impressions 04/12/2025 3:06 PM EDT Normal swallowing function. Please refer to the dedicated speech pathologist report for further details as clinically indicated. -------- FINAL REPORT -------- Dictated By: Yolanda Brewer Dictated Date: 04/12/2025 12:33 ET Assigned Physician: Bg Mendez Reviewed and Electronically Signed By: Bg Mendez Signed Date: 04/12/2025 15:06 ET Workstation ID: [id number] Transcribed By: Self Edit Transcribed Date: 04/12/2025 12:50 ET Resident/PA/ACCOUNT MANAGER FOREST SERVICE: Yolanda Brewer Narrative 04/12/2025 3:06 PM EDT STUDY: Modified barium swallow study COMPARISON: No prior modified barium swallow. HISTORY: Patient is a 60 year old female with history of dysphagia, Sjogren's syndrome. TECHNIQUE: Multiple sequential fluoroscopic images of the lateral neck were obtained for a swallowing function study. Barium enhanced consistencies of pudding, honey, nectar, thin liquid, semi- solid, and a 13 mm barium tablet were utilized for evaluation. Examination was performed with the speech therapist present. FINDINGS: There was no evidence for penetration or aspiration of the various consistencies. 13 mm barium tablet was swallowed without difficulty with prompt passage of pill into the cervical esophagus. Air kerma: 0.8 mGy Procedure Note Bg Mendez MD - 04/12/2025 STUDY: Modified barium swallow study COMPARISON: No prior modified barium swallow. HISTORY: Patient is a 60 year old female with history of dysphagia,Sjogren's syndrome. TECHNIQUE: Multiple sequential fluoroscopic images of the lateral neckwere obtained for a swallowing function study. Barium enhancedconsistencies of pudding, honey, nectar, thin liquid, semi-solid, and a 13mm barium tablet were utilized for evaluation. Examination was performedwith the speech therapist present. FINDINGS: There was no evidence for penetration or aspiration of the variousconsistencies. 13 mm barium tablet was swallowed without difficulty withprompt passage of pill into the cervical esophagus. Air kerma: 0.8 mGy IMPRESSION: Normal swallowing function. Please refer to the dedicated speech pathologist report for furtherdetails as clinically indicated. -------- FINAL REPORT -------- Dictated By: Yolanda Brewer Dictated Date: 04/12/2025 12:33 ET Assigned Physician: Bg Mendez Reviewed and Electronically Signed By: Bg Mendez Signed Date: 04/12/2025 15:06 ET Workstation ID: [id number] Transcribed By: Self Edit Transcribed Date: 04/12/2025 12:50 ET Resident/PA/ACCOUNT MANAGER FOREST SERVICE: Yolanda Brewer Luis Fu MD IMG FLUOROSCOPY PROCEDURES Final Result * (ABNORMAL) MG Mammo Digital Screening w Daniel bilat (03/02/2025 4:01 PM EDT) Anatomical Region Laterality Modality Breast Bilateral Mammography 03/03/2025 11:3 0 AM EDT Addenda Addendum by Marcy Diop MD on 03/29/2025 4:00 PM EDT Addendum: The patient is going to [facility] for the additional imaging. -------- ADDENDUM -------- Dictated By: Marcy Diop Dictated Date: 03/29/2025 15:59 ET Assigned Physician: Marcy Diop Reviewed and Electronically Signed By: Marcy Diop Signed Date: 03/29/2025 16:00 ET Workstation ID: [id number] Transcribed By: Self Edit Transcribed Date: 03/29/2025 15:59 ET Impressions 03/03/2025 11:38 AM EDT Focal asymmetry right breast. Spot compression cc view of the right breast is suggested. Ultrasound may be needed if this is a persistent finding. BI-RADS CATEGORY: 0 - INCOMPLETE - NEED ADDITIONAL IMAGING EVALUATION RECOMMENDATION: Additional right breast imaging recommended. Ultrasound is recommended for the Right Breast. Mammo Location: [facility], [address] [place] [address], [id number], . -------- FINAL REPORT -------- Dictated By: Marcy Diop Dictated Date: 03/03/2025 11:30 ET Assigned Physician: Marcy Diop Reviewed and Electronically Signed By: Marcy Diop Signed Date: 03/03/2025 11:38 ET Workstation ID: [id number] Transcribed By: Self Edit Transcribed Date: 03/03/2025 11:30 ET Narrative 03/03/2025 11:38 AM EDT CLINICAL: 60 years old, Female, routine annual exam. COMPARISON: Mammogram 02/07/2022. TECHNIQUE: Bilateral MLO and CC views were obtained digitally with 3-D mammogram (digital breast tomosynthesis). Computer-aided detection was utilized in evaluation of this exam (CAD). FINDINGS: There is no evidence of architectural distortion. No worrisome calcifications are evident. There is a focal asymmetry in the posterior slightly medial right breast on the cc view. This is not confirmed on the MLO view. There is a biopsy clip in the retroareolar left breast. BREAST DENSITY: B - There are scattered areas of fibroglandular density. Procedure Note Marcy Diop MD - 03/03/2025 CLINICAL: 60 years old, Female, routine annual exam. COMPARISON: Mammogram 02/07/2022. TECHNIQUE: Bilateral MLO and CC views were obtained digitally with 3-Dmammogram (digital breast tomosynthesis). Computer-aided detection wasutilized in evaluation of this exam (CAD). FINDINGS: There is no evidence of architectural distortion. No worrisomecalcifications are evident. There is a focal asymmetry in the posteriorslightly medial right breast on the cc view. This is not confirmed on theMLO view. There is a biopsy clip in the retroareolar left breast. BREAST DENSITY: B - There are scattered areas of fibroglandular density. IMPRESSION: Focal asymmetry right breast. Spot compression cc view of the rightbreast is suggested. Ultrasound may be needed if this is a persistentfinding. BI-RADS CATEGORY: 0 - INCOMPLETE - NEED ADDITIONAL IMAGING EVALUATION RECOMMENDATION: Additional right breast imaging recommended. Ultrasound is recommended forthe Right Breast. Mammo Location: [facility], [address] [place] [address], [address], . -------- FINAL REPORT -------- Dictated By: Marcy Diop Dictated Date: 03/03/2025 11:30 ET Assigned Physician: Marcy Diop Reviewed and Electronically Signed By: Marcy Diop Signed Date: 03/03/2025 11:38 ET Workstation ID: [id number] Transcribed By: Self Edit Transcribed Date: 03/03/2025 11:30 ET Vanessa Duron MD IMG BI PROCEDURES Edited Result - Final from Last 3 Months or Most Recently Relevant to Health Maintenance Insurance MEDICARE MEDICAID - [place] Care Teams Shoe Cementer Relationship Specialty Start Date End Date Bree Livingston MD [address] [place] [id number] PCP - General 06/01/03
--- OUTSIDE RECORDS SUMMARY | 2025-07-13 12:13 | XMS_ITS | Clinical Summary ---
Author Organization [facility] Address [address] [place] [address] Care Team Providers Care Art Teacher Name Role Phone Murray Livingston Primary Care Provider [phone] Allergies Active Allergy Reactions Criticality Noted Date [...] mg by mouth once a day. Active cholecalciferol (VITAMIN D3) 1,000 unit tablet [...] SMARTSI Tablet(s) By Mouth Daily 3 Active Tyrvaya 0.03 mg/spray spray, metered, non-aerosol SMARTSI Fleming(s) Both Nares Twice Daily 4 Active Lubricant Eye, propyl glycol, 0.6 % drops INSTILL 1 DROP INTO AFFECTED EYE(S) 4 TIMES A DAY 15 mL 5 5 Active ezetimibe (ZETIA) 10 mg tablet Take 1 tablet by mouth once a day. 4 Active Breo Ellipta 100-25 mcg/dose blister with device SMARTSI Puff(s) By Mouth Daily 4 Active perfluorohexylo ctane, PF, (Miebo, PF,) 100 % drops Instill 1 drop into affected eye(s) 2 (two) times a day. 3 mL 11 5 Active cevimeline (EVOXAC) 30 mg capsule Take 1 capsule (30 mg total) by mouth 3 times a day. 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 03/13 attempted implantation of stent unsuccessful. 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 [...] Encounters Date Type Department Care Team Description 07/08/2025 Orders Only [facility] [address] [place] [id number] Green Hide Inspector: Michell Mcghee MD Sjogren's syndrome with keratoconjunctivitis sicca (HCC) (Primary Dx); Shortness of breath 06/07/2025 Results Follow-Up [facility] [address] [place] [address] Green Hide Inspector: Michell Mcghee MD 05/23/2025 3:20 PM EDT Follow-Up [facility] [address] [place] [phone] Green Hide Inspector: Michell Mcghee MD Sjogren's syndrome with keratoconjunctivitis sicca (HCC) (Primary Dx); Shortness of breath 05/10/2025 Refill [facility] [address] [place] [phone] Susie Ferrell MD from Last 3 Months Family History Medical [...] Sign Reading Time Taken Comments Blood Pressure 101/70 05/23/2025 3:39 PM EDT Pulse 98 05/23/2025 3:39 PM EDT Temperature 36.6 C (97.9 F) 11/01/2024 2:09 PM EST Respiratory Rate 20 06/18/2023 10:41 AM EDT Oxygen Saturation 94% 05/23/2025 3:39 PM EDT Inhaled Oxygen Concentration - - Weight 77.1 kg (170 lb) 05/23/2025 3:39 PM EDT Height 161.3 cm (5' 3.5 ) 05/23/2025 3:39 PM EDT Body Mass Index 29.64 05/23/2025 3:39 PM EDT Plan of Treatment Upcoming Encounters Date Type Department Care Team (Late st Contact Info) Description 07/14/2025 2:15 PM EST Follow-Up [address] [phone] Felix Prakash MD [address] [place] [phone] 09/27/2025 12:00 PM EST Office Visit [address] [address] Kamaljit Guadalupe P, OD [address] [place] [phone] 01/20/2026 2:20 PM EDT Follow-Up [facility] [address] [place] [phone] Green Hide Inspector: Michell Mcghee MD [address] [place] [phone] 02/01/2026 2:00 PM EDT Follow-Up [address] [address] Celsa Sanford MD [address] [place] [phone] Health Maintenance Due Date Last Done Comments Cervical Cancer Screening 1965 HPV and Pap Smear 1965 Pap Smear 1965 Medicare AWV 01/16/1966 Alcohol/Substance Use Screening 09/01/2024 Depression Screening and Follow-Up 09/01/2024 Social Drivers of Health Saniya ual Screening 09/01/2024 CT Lung Cancer Screening (Baseline) 02/14/2025 02/15/2024 COVID-19 Vaccine (3 - 2024-2 6 season) 2025 01/09/2021, 12/19/2020 Mammogram 03/02/2027 03/02/2025 DTaP,Tdap,and Td Vaccines (3 - Td or Tdap) 10/17/2027 10/17/2017, 03/11/2008 Diabetes Screening 05/23/2028 05/23/2025, 0 11/01/2024, 09/20/2024, Additional history exists Hepatitis B Vaccines Completed 07/11/2017, 09/06/2008, 04/15/2008, Additional history exists HIV Screening Completed 07/02/2018 Pneumococcal Vaccine: 50+ Years Completed Hepatitis C Screening Completed 04/22/2023, 018 RSV Vaccine (60+ years old a nd patients) Completed 04/29/2023 Zoster Vaccines Completed 02/16/2025, 11/28/2021 Influenza Vaccine Completed 04/26/2025, , 04/30/2024, Additional history exists Procedures * Due to [place] state law, this organization might not be sharing negative HIV tests. Procedure Name Priority Date/Time Associated Diagnosis Comments CBC AUTO DIFFERENTIAL Routine 05/23/2025 4:38 PM EDT Sjogren's syndrome with keratoconjunctivitis sicca (HCC) COMPREHENSIVE METABOLIC PANEL Routine 05/23/2025 4:38 PM EDT Sjogren's syndrome with keratoconjunctivitis sicca (HCC) C-REACTIVE PROTEIN Routine 05/23/2025 4: 38 PM EDT Sjogren's syndrome with keratoconjunctivitis sicca (HCC) SEDIMENTATION RATE, AUTOMATED Routine 05/23/2025 4:38 PM EDT Sjogren's syndrome with keratoconjunctivitis sicca (HCC) IGG Routine 05/23/2025 4:38 PM EDT Sjogren's syndrome with keratoconjunctivitis sicca (HCC) COMPLEMENT C3C AND C4C Routine 05/23/2025 4:38 PM EDT Sjogren's syndrome with keratoconjunctivitis sicca (HCC) URINALYSIS W/MICROSCOPIC Routine 05/23/2025 4:38 PM EDT Sjogren's syndrome with keratoconjunctivitis sicca (HCC) PROTEIN, RANDOM URINE WITH CREATININE Routine 05/23/2025 4:38 PM EDT Sjogren's syndrome with keratoconjunctivitis sicca (HCC) PROTEIN ELECTROPHORESIS W/REFLEX TO IMMUNOFIXATION, SERUM Routine 05/23/2025 4:38 PM EDT Sjogren's syndrome with keratoconjunctivitis sicca (HCC) AMB EXTERNAL CT CHEST, OUTSIDE RESULT 02/15/2024 HEPATITIS C ANTIBODY W/REFLEX TO HCV RNA, QUANTITATIVE PCR Routine 04/22/2023 9:45 AM EDT from Last 3 Months or Most Recently Relevant to Health Maintenance Results * Due to [place] state law, this organization might not be sharing negative HIV tests. * Complement C3c and C4c (05/23/2025 4:38 PM EDT) Complement Component C3C 151 83 - 193 mg/dL 05/24/2025 6:26 PM EDT [facility] Complement Component C4C 20 15 - 57 mg/dL 05/24/2025 6:26 PM EDT [facility] Blood Structure of peripheral vein / Unknown Venipuncture / Unknown 05/23/2025 4:38 PM EDT 05/23/2025 5:06 PM EDT Narrative [facility] - 05/24/2025 6:26 PM EDT [facility] Received Date: us Michell Villar MD LAB BLOOD ORDERABLES Final Re sult [facility] [address], [place] [address], [facility] [address], [place] [address], * Protein Electrophoresis w/Reflex to Immunofixation, Serum (05/23/2025 4:38 PM EDT) Protein, Total 7.1 6.1 - 8.1 g/dL 05/24/2025 10:32 PM EDT [facility] Albumin 4.4 3.8 - 4.8 g/dL 05/24/2025 10:32 PM EDT [facility] Alpha 1 Globulin 0.3 0.2 - 0.3 g/dL 05/24/2025 10:32 PM EDT [facility] Alpha 2 Globulin 0.7 0.5 - 0.9 g/dL 05/24/2025 10:32 PM EDT [facility] Beta 1 Globulin 0.4 0.4 - 0.6 g/dL 05/24/2025 10:32 PM EDT [facility] Beta 2 Globulin 0.4 0.2 - 0.5 g/dL 05/24/2025 10:32 PM EDT [facility] Gamma Globulin 0.9 0.8 - 1.7 g/dL 05/24/2025 10:32 PM EDT [facility] Interpretation See Comments 05/24/2025 10:32 PM EDT [facility] Comment: Normal Serum Protein Electrophoresis Pattern. No abnormal protein bands (M-protein) detected. Blood Structure of peripheral vein / Unknown Venipuncture / Unknown 05/23/2025 4:38 PM EDT 05/23/2025 5:06 PM EDT Narrative [facility] - 05/24/2025 10:32 PM EDT [facility] Received Date: us Michell Villar MD LAB BLOOD ORDERABLES Final Re sult [facility] [place] [address], [place] [address], [place] [phone] [facility] [address] [address], [place] [address], [place] [phone] * (ABNORMAL) CBC Auto Differential (05/23/2025 4:38 PM EDT) WBC 11.3(H) 3.8 - 10.8 10*3/uL 05/23/2025 5:11 PM EDT [facility] RBC 5.20(H) 3.80 - 5.10 10*6/uL 05/23/2025 5:11 PM EDT [facility] Hemoglobin 15.6(H) 11.7 - 15.5 g/dL 05/23/2025 5:11 PM EDT [facility] Hematocrit 46.8(H) 35.0 - 45.0 % 05/23/2025 5:11 PM EDT [facility] MCV 90.0 80.0 - 100.0 fL 05/23/2025 5:11 PM EDT [facility] MCH 30.0 27.0 - 33.0 pg 05/23/2025 5:11 PM EDT [facility] MCHC 33.3 32.0 - 36.0 g/dL 05/23/2025 5:11 PM EDT [facility] RDW 14.5 11.0 - 15.0 % 05/23/2025 5:11 PM EDT [facility] Platelets 314 140 - 400 10*3/uL 05/23/2025 5:11 PM EDT [facility] MPV 10.5 7.5 - 12.5 fL 05/23/2025 5:11 PM EDT [facility] Neutrophil % 64.3 % 05/23/2025 5:11 PM EDT [facility] Immature Grans % 0.3 0.0 - 0.9 % 05/23/2025 5:11 PM EDT [facility] Lymphocyte % 24.8 % 05/23/2025 5:11 PM EDT [facility] Monocyte % 7.2 % 05/23/2025 5:11 PM [facility] Eosinophil % 2.6 % [facility]2025 [facility] Basophil % 0.8 % 05/23/2025 5:11 PM EDT [facility] Neutrophil # 7.27 1.50 - 7.80 10*3/uL 05/23/2025 5:11 PM EDT [facility] Immature Grans # 0.03 <=0.03 10*3/uL 05/23/2025 5:[facility] Lymphocyte # 2.80 0.85 - 3.90 10*3/uL 05/23/2025 5:11 PM EDT [facility] Monocyte # 0.80 0.20 - 0.95 10*3/uL 05/23/2025 5:11 PM EDT [facility] Eosinophil # 0.30 0.02 - 0.50 10*3/uL 05/23/2025 5:11 [facility] Basophil # 0.10 0.00 - 0.20 10*3/uL 05/23/2025 5:11 [facility] nRBC % 0.0 /100 WBCs 05/23/2025 5:11 PM EDT [facility] nRBC # <0.01 <0.01 10*3/uL 05/23/2025 5:11 PM EDT [facility] Blood Structure of peripheral vein / Unknown Venipuncture / Unknown 05/23/2025 4:38 PM EDT 05/23/2025 5:06 PM EDT Michell Villar MD LAB BLOOD ORDERABLES Final Re sult Performing Organization Address City/[facility]/ZIP Co de Phone Number [facility] [address] [place] [address], [place] * Protein, Random Urine with Creatinine (05/23/2025 4:38 PM EDT) Protein, Urine 11 mg/dL 05/23/2025 5:47 PM EDT [facility] Creatinine, Urine 157 15 - 278 mg/dL 05/23/2025 5:47 PM EDT [facility] Protein/Creati nine, Urine Ratio 70 <200 mg/gmCr 05/23/2025 5:47 PM EDT [facility] Urine Urine specimen collection, clean catch / Unknown Non-Blood Collection / Unknown 05/23/2025 4:38 PM EDT 05/23/2025 5:05 PM EDT us Michell Villar MD LAB URINE ORDERABLES Final Re sult Performing Organization Address City/[facility]/ZIP Co de Phone Number [facility] [address] [place] [address], [place] * (ABNORMAL) Urinalysis With Microscopic (No Culture)-[facility] ONLY (05/23/2025 4:38 PM EDT) Color, Urine Yellow Colorless, Light Yellow, Yellow, Dark Yellow 05/23/2025 5:33 PM EDT [facility] Clarity, Urine Clear Clear 05/23/2025 5:33 PM T [facility] Specific [place], Urine 1.016 <1.030 05/23/2025 5:33 PM T [facility] pH, Urine 6.0 4.6 - 8.0 05/23/2025 5:33 PM [facility] Protein, Urine Negative Negative 05/23/2025 5:33 PM T [facility] Glucose, Urine Normal Normal 05/23/2025 5:33 PM [facility] Ketones, Urine Negative Negative 05/23/2025 5:33 PM [facility] Bilirubin, Urine Negative Negative 05/23/2025 5:33 PM [facility] Blood, Urine 1+(A) Negative 05/23/2025 5:33 PM [facility] Nitrite, Urine Negative Negative 05/23/2025 5:33 PM [facility] Urobilinogen, Urine Normal Normal 05/23/2025 5:33 PM [facility] Leukocyte Esterase, Urine Negative Negative 05/23/2025 5:33 PM [facility] WBC, Urine 3(H) 0 - 2 /HPF 05/23/2025 5:33 PM [facility] RBC, Urine 4(H) 0 - 2 /HPF 05/23/2025 5:33 PM [facility] Hyaline Casts, Urine 0 0 - 2 /LPF 05/23/2025 5:33 PM [facility] Bacteria, Urine None Seen None /HPF /HPF 05/23/2025 5:33 PM [facility] Squamous Epithelial Cells, Urine 2 /HPF 05/23/2025 5:33 PM [facility] Mucus, Urine Rare /LPF 05/23/2025 5:33 PM EDT [facility] Urine Urine specimen collection, clean catch / Unknown Non-Blood Collection / Unknown 05/23/2025 4:38 PM EDT 05/23/2025 5:04 PM EDT Michell Villar MD LAB URINE ORDERABLES Final Re sult [facility] [address] [place] [address], [place] * Sedimentation Rate (05/23/2025 4:38 PM EDT) Sed Rate 15 <30 mm/Hr mm/Hr 05/23/2025 5:11 PM EDT [facility] Blood Structure of peripheral vein / Unknown Venipuncture / Unknown 05/23/2025 4:38 PM EDT 05/23/2025 5:06 PM EDT us Michell Villar MD LAB BLOOD ORDERABLES Final Re sult Performing Organization Address [facility] Co de Phone Number [facility] [address] [place] [id number], [place] * C-Reactive Protein (05/23/2025 4:38 PM EDT) C Reactive Protein 4.6 <=9.9 mg/L 05/23/2025 5:45 PM EDT [facility] Blood Structure of peripheral vein / Unknown Venipuncture / Unknown 05/23/2025 4:38 PM EDT 05/23/2025 5:06 PM EDT us Michell Villar MD LAB BLOOD ORDERABLES Final Re sult Performing Organization Address City/[facility]/ZIP Co de Phone Number [facility] [address] [place] [phone], * IgG (05/23/2025 4:38 PM EDT) IgG, Serum 911 600 - 1540 mg/dL 05/24/2025 2:40 PM EDT [place] [facility] Structure of peripheral vein / Unknown Venipuncture / Unknown 05/23/2025 4:38 PM EDT 05/23/2025 5:06 PM EDT Narrative [facility] - 05/24/2025 2:40 PM EDT [facility] Received Date: us Michell Villar MD LAB BLOOD ORDERABLES Final Re sult [facility] [address], [place] [address], [place] [phone] [facility] [address], [place] [address], [place] [phone] * Comprehensive Metabolic Panel (05/23/2025 4:38 PM EDT) NA 140 135 - 145 mmol/L 05/23/2025 5:45 PM EDT [facility] K 4.2 3.5 - 5.3 mmol/L 05/23/2025 5:45 PM EDT [facility] Cl 104 98 - 107 mmol/L 05/23/2025 5:45 PM EDT [facility] CO2 24 22 - 32 mmol/L 05/23/2025 5:45 PM EDT [facility] Anion Gap 12 5 - 15 05/23/2025 5:45 PM EDT [facility] Glucose 99 65 - 99 mg/dL 05/23/2025 5:45 PM EDT [facility] Creatinine 0.98 0.50 - 1.20 mg/dL 05/23/2025 5:45 PM EDT [facility] Calcium 9.5 8.6 - 10.5 mg/dL 05/23/2025 5:45 PM EDT [facility] Total Protein 7.3 6.0 - 8.0 g/dL 05/23/2025 5:45 PM EDT [facility] Albumin 4.4 3.5 - 5.2 g/dL 05/23/2025 5:45 PM EDT [facility] Bilirubin, Total 0.3 0.2 - 1.2 mg/dL 05/23/2025 5:45 PM EDT [facility] Alkaline Phosphatase 98 35 - 129 U/L 05/23/2025 5:45 PM EDT [facility] AST 22 10 - 40 U/L 05/23/2025 5:45 PM T [facility] ALT 15 10 - 40 U/L 05/23/2025 5:45 PM EDT [facility] BUN 16 7 - 23 mg/dL 05/23/2025 5:45 PM T [facility] eGFR 65 >=60 mL/min/1. 73m2 05/23/2025 5:45 PM T [facility] Comment:The estimated glomer ular filtration [...] in Diagnosing Kidney Disease . Globulin, Total 2.9 2.1 - 4.2 g/dL 05/23/2025 5:45 PM T [facility] A/G Ratio 1.5 1.5 - 3.0 05/23/2025 5:45 PM EDT [facility] Blood Structure of peripheral vein / Unknown Venipuncture / Unknown 05/23/2025 4:38 PM EDT 05/23/2025 5:06 PM EDT us Michell Villar MD LAB BLOOD ORDERABLES Final Re sult Performing Organization Address City/[facility]/ZIP Co de Phone Number [facility] [address] [place] [address], [place] * CT Chest, Outside Result (02/15/2024) Anatomical [...] Recently Relevant to Health Maintenance Insurance MEDICARE [facility] Advance Directives Documents on File Type Date Recorded Patient Hide [facility] Care Proxy 03/08/2024 3:27 PM 2023 Care Teams Art Teacher Relationship Specialty Start Date End Date Murray Livingston PCP - General Internal Medicine 02/24/23
--- OUTSIDE RECORDS SUMMARY | 2025-07-13 12:13 | XMS_ITS | Clinical Summary ---
Author Organization [facility] Address [address] [id number] Care Team Providers Care Electro Optics Engineer Name Role Phone Murray Livingston MD Primary Care Provider + [phone] Allergies Active Allergy Reactions Criticality Noted Date [...] age to complete this topic Care Teams Electro Optics Engineer Relationship Specialty Start Date End Date Murray Livingston MD PCP - General Manager Programs 05/15/22
--- OUTSIDE RECORDS SUMMARY | 2025-07-13 12:13 | XMS_ITS | Encounter Summary ---
Author Organization [facility] Address [address] [place] [address] Care Team Providers Care Biometrics Specialist Name Role Phone Murray Livingston Primary Care Provider Encounter Details Date Type Department Care Team (Late st Contact Info) Description 03/18/2013 Clinical Conversion Encounter GENERAL CONVERSION Afshan Martins [...] as of this encounter Discharge Summaries * In Ashly Martins MD - 10/18/2014 7:06 AM EST [id number],DIANA [place], [place]. DISCHARGE SUMMARY Name: DAYAMI POOL LC#: [id number] : 1965 Admit Date: 03/18/2013 Discharge Date: 03/18/2013 Visit ID: [id number] PRIMARY CARE PHYSICIAN: Murray Livingston MD. DICTATING PROVIDER: Brijesh Gonsalez MD. ATTENDING PHYSICIAN: Afshan Martins MD. REASON FOR ADMISSION: Cerebral aneurysm treatment. MEDICATIONS ON DISCHARGE: Aspirin 325 mg daily, levothyroxine 50 mcg daily, clonazepam 1 mg at bedtime, ibuprofen 800 mg 3 times a week, hormone patch. ALLERGIES: CIPROFLOXACIN, PENICILLIN AND SULFA DRUGS. SOCIAL HISTORY: The patient lives in [place], [place], with her daughter and son. She is a since May 2012 when her unexpectedly from sepsis. 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 The patient has a [id number] history of smoking, but recently quit. Occasionally drinks alcohol and denies drug abuse. FAMILY HISTORY: There is no history of intracranial aneurysms or stroke or hemorrhage. 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 The patient describes short-term memory problems, occasional word-finding difficulties and non-localizable sensorimotor disturbances. An MRI at the time showed a left ICA paraclinoid aneurysm. The aneurysm was treated with endovascular coil embolization by Dr. Afshan Martins in May 2006. The patient then had a followup cerebral angiogram in 2007 and at that time, it was revealed that there was slight recanalization of the anterior part of the aneurysm. Followup serial skull x-rays showed no evidence of significant change of the coil mesh. It was determined that the aneurysm would be monitored with a selective cerebral angiogram 1 year later. On followup cerebral angiogram in November 2012, the previously seen recanalized portion of the aneurysm had increased compared to previous angiogram in 2007; however, the coil mesh was itself unchanged. This indicated regrowth of the aneurysm. Dr. Afshan Martins recommended having a Pipeline flow-diverter device placed to close the recurrent aneurysm. On 03/18/2013, the patient underwent a treatment for the small recurrent aneurysm of a large left ophthalmic artery aneurysm. The Pipeline flow-diverter device was attempted; however, due to vasospasm, the intermediate catheter could not be positioned. The patient therefore did not receive a stent placement. The patient was later discharged home with no neurological events. PHYSICAL EXAMINATION: The patient was well developed, in no acute distress upon discharge. The patient was alert and oriented x3, speech was fluent, mental status was intact. Cranial nerves II through XII were intact. Motor exam demonstrated 5/5 in upper and lower extremities proximally and distally. Sensation was intact to touch in upper and lower extremities bilaterally. The cerebellar exam demonstrated no dysmetria of [id number]. Gait was normal. FOLLOWUP PLAN: The patient is to follow up with Dr. Afshan Martins in Interventional Radiology. Brijesh Gonsalez MD [phone] BSK:JUNIOR J: [id number] / [id number] CC: Murray Livingston MD, <Primary Care Physician> THIS DOCUMENT WAS ELECTRONICALLY AUTHENTICATED BY In Ashly Martins MD ON 05/10/2013 15:13:19 DAYAMI POOL Yesica 03/18/2013 # [id number] documented in this encounter Plan of Treatment Not on file documented as of this encounter Visit Diagnoses Not on filedocumented in this encounter Care Teams Biometrics Specialist Relationship Specialty Start Date End Date Murray Livingston PCP - General 07/11/14 documented as of this encounter
--- OUTSIDE RECORDS SUMMARY | 2025-07-13 12:13 | XMS_ITS | Encounter Summary ---
Author Organization [facility] Address [address] [place] [address] Care Team Providers Care Traffic Control Supervisor Name Role Phone Murray Livingston Primary Care Provider Encounter Details Date Type Department Care Team (Late st Contact Info) Description 12/04/2009 Clinical Conversion Encounter GENERAL CONVERSION Afshan Martins [...] encounter Miscellaneous Notes * Letter - In Ashly Martins MD - 09/20/2014 3:29 PM EST [id number],DIANA [place]DE[place]ds[place], [place]. December 04, 2009 Murray Livingston M.D. [address] [facility] [address] RE: DAYAMI POOL #: [id number] : 1965 Visit ID :[id number] Dear Dr. Livingston: Ms. Pool came back for follow-up today. As you recall, she was found to have a large size aneurysm from the ophthalmic artery origin of left internal carotid artery. This was treated with detachable coils in 2005. She underwent follow-up angiogram in 2007, which showed a small reopening of the neck of the aneurysm. Her aneurysm neck was relatively elongated and wide. The rest of the aneurysm was still well closed. I decided to follow this recanalized aneurysm without intervention. She had a skull x-ray taken in 2008 and today. The coil mesh in the aneurysm has not changed. This indicates that the recanalized portion of the neck is stable. She also brought MRI which was done October. This did not show any significant pathology in the brain as I can see. The aneurysm size itself seems unchanged. She stated that she is falling and she is developing some numbness of both sides of the thigh. She is undergoing further neurological evaluation. For the next follow-up, I will see her two years from now. I will order MRI/MRA examination with contrast enhancement to see the status of the recanalized neck. Thank you for referring this patient to me. Sincerely, In Ashly Martins MD Department of Interventional Neuroradiology [phone] IC:romelia J: [id number] Time spent in discussion with the patient is 20 minutes. CC: Becky Poon MD, <Referring> Murray Livingston MD, <Second referring Dr Name> [facility], <Primary Care Physician> THIS DOCUMENT WAS ELECTRONICALLY AUTHENTICATED BY In Ashly Martins MD ON 12/29/2009 14:37:00 DAYAMI OPOL # [id number] [facility] * [address] [place] [address] * [phone] Page 2 of 2 documented in this encounter Plan of Treatment Not on file documented as of this encounter Procedures Procedure Name Priority Date/Time Associated Diagnosis Comments XR SKULL < 4 VW Routine 12/04/2009 1:50 PM EDT documented in this encounter Results * XR Skull < 4 Vw (12/04/2009 1:50 PM EDT) Anatomical Region Laterality Modality Head Radiographic Natalie ging 12/04/2009 1:50 PM EDT Narrative 12/05/2009 6:32 PM EDT SKULL X-RAY CLINICAL RESUME: 44 YEAR OLD FEMALE PATIENT WHO UNDERWENT COIL TREATMENT FOR IRREGULAR-SHAPED ANEURYSM FROM THE LEFT INTERNAL CAROTID ARTERY AT THE OPHTHALMIC ARTERY ORIGIN. COMPLETE OCCLUSION WAS NOT POSSIBLE. A RESIDUAL NECK WAS SEEN. ON FOLLOW-UP STUDY, THERE IS RECANALIZATION OF A SMALL PORTION OF THE ANEURYSM. THIS RECANALIZATION HAS BEEN STABLE. THE PATIENT COMES BACK FOR FOUR YEAR FOLLOW-UP. FOUR VIEWS OF THE SKULL X-RAYS WERE TAKEN. THIS WAS COMPARED WITH PREVIOUS SKULL X-RAYS OF 12/12/08 AND 10/14/07. THE COIL MESH ITSELF HAS NOT CHANGED IN SHAPE. THE LOCATION IS THE SAME PREVIOUS STUDIES. CONCLUSION: STABLE COIL MESH IN THE LEFT OPHTHALMIC ARTERY ANEURYSM SINCE 2007. This document was electronically signed by IN SUP. MELISSA MD on 12/05/2009 18:32:00 Procedure Note Afshan Martins MD - 11/03/2014 SKULL X-RAY CLINICAL RESUME: 44 YEAR OLD FEMALE PATIENT WHO UNDERWENT COIL TREATMENT FOR IRREGULAR-SHAPED ANEURYSM FROM THE LEFT INTERNAL CAROTID ARTERY AT THE OPHTHALMIC ARTERY ORIGIN. COMPLETE OCCLUSION WAS NOT POSSIBLE. A RESIDUAL NECK WAS SEEN. ON FOLLOW-UP STUDY, THERE IS RECANALIZATION OF A SMALL PORTION OF THE ANEURYSM. THIS RECANALIZATION HAS BEEN STABLE. THE PATIENT COMES BACK FOR FOUR YEAR FOLLOW-UP. FOUR VIEWS OF THE SKULL X-RAYS WERE TAKEN. THIS WAS COMPARED WITH PREVIOUS SKULL X-RAYS OF 12/12/08 AND 10/14/07. THE COIL MESH ITSELF HAS NOT CHANGED IN SHAPE. THE LOCATION IS THE SAME PREVIOUS STUDIES. CONCLUSION: STABLE COIL MESH IN THE LEFT OPHTHALMIC ARTERY ANEURYSM SINCE 2007. This document was electronically signed by IN SUP. MELISSA MD on 12/05/2009 18:32:00 us In Ashly Martins MD IMG DIAGNOSTIC IMAGING ORDERABLE S Final Result documented in this encounter Visit Diagnoses Not on filedocumented in this encounter Care Teams Traffic Control Supervisor Relationship Specialty Start Date End Date Murray Livingston PCP - General 07/11/14 documented as of this encounter
--- OUTSIDE RECORDS SUMMARY | 2025-07-13 12:14 | XMS_ITS | Patient Health Record ---
Author Organization [facility] Address [address] [place] [address] Care Team Providers Care Public Relations Analyst Name Role Phone Cordell Ruiz Unavailable [phone] Allergies Allergen (clinical drug ingredient) Drug/Non Drug [...] Once a day Active Xiidra 5 % Solution 1 drop into affected eye Ophthalmic Twice a day Active Cevimeline HCl 30 MG Capsule 1 capsule Orally Three times a day Active Levothyroxine Sodium 50 MCG Tablet 1 tablet on an empty stomach in the morning Orally Once a day Active Estradiol 1 patch to skin Transdermal Two times a Week Active Vitamin D-3 Active clonazePAM 0.5 MG Tablet 1 tablet Orally up to 3 daily Active Methotrexate 2.5 mg tablets 2 tablets Or al once a week Active Folic Acid 1 MG Tablet 1 tablet Orally O nce a day Active Plaquenil 200-400 MG Tablet 1 tablet wit h food or milk Orally Once a day Active Linzess 145 MCG Capsule 1 capsule Orally one every 3 days Active Social History Tobacco Use: Social History Observation Description Date Details (start date - stop date) Never Smoker NA - NA Social History Tobacco Use: Social Info Question Answer Notes Tobacco Use/Smoking Are you a nonsmoker Problems Problem Type SNOMED Code ICD Code Onset Dates Problem Status W/U Status Risk Notes Problem Lumbosacral spondylosis without myelopathy (04229988) Spondylosis without myelopathy or radiculopathy, lumbar region (M47.816) Active confirmed Plan Of Treatment No Information Insurance Providers Payer Name Payer Address Payer Phone Subscriber Number Group Number Insured Name Patient Relationship to Insured Coverage Start Date Coverage End Date [place] [address] [place]NANDEZ [phone] [id number] KIANA MARTINEZ Self - patient is the insured [employer] [place] [address] [place] [phone] [id number] KIANA MARTINEZ Self - patient is the [...]
--- OUTSIDE RECORDS SUMMARY | 2025-07-13 12:14 | XMS_ITS | Encounter Summary ---
Author Organization [facility] Address [address] [place] [address] Care Team Providers Care Web Page Developer Name Role Phone Murray Livingston Primary Care Provider [phone] Encounter Details Date Type Department Care Team (Late st Contact Info) Description 04/12/2014 Clinical Conversion Encounter GENERAL CONVERSION Nori Byrd, SYSTEMS PROJECT MANAGER [address] [place] [address] Social History Tobacco Use Types Packs/Day Years Used Date Smoking Tobacco: Some Days Comments Unknown Sex and Gender Information Value Date Recorded Sex Assigned at Female 11/02/2018 8:08 AM EST Legal Sex Female 3:15 AM EST Gender Identity Female 11/02/2018 8:08 AM EST Sexual Orientation Not on file documented as of this encounter Consult Notes * Nori Byrd, UNRULY - 10/27/2014 9:06 PM EST [id number] MARTINEZ [facility] INPATIENT CONSULTATION PULMONARY AND CRITICAL CARE MEDICINE 04/14/2014 Name: DAYAMI MARTINEZ Yesica LC#: [id number] : 1965 Visit ID: [id number] Floor: [place] [address] HISTORY OF PRESENT ILLNESS: This is a 49-year-old female admitted for left ICA recurrent aneurysm. The patient has a past medical history of cerebral arterial aneurysm, hypothyroidism, migraine and GERD. The patient reports approximately a 40-wgqh-geko history of smoking cigarettes and currently smokes 5 to 10 cigarettes a day along with e-cigarette. The patient is not on any active tobacco treatment medication. The patient states she is sensitive to nicotine patch as she gets a rash and increased heart rate. This provider did discuss that [facility] Tobacco Treatment program does not support non-FDA approved e-cigarette. This program supports FDA approved device such as Nicotrol inhaler. The patient denies cravings or withdrawal while hospitalized. STAGE OF CHANGE: The patient is not ready to quit. PLAN: Medication safety, use and warnings were reviewed and the patient verbalizes understanding of such. Today's counseling, advised the patient to quit as it is medically necessary. Health risks of tobacco use and negative effects on personal diagnosis and family health were discussed with the patient. Tobacco treatment plan and tips to overcome difficulties were reviewed and educational materials were provided to the patient. [facility] resources were offered and the patient has been referred to the tobacco treatment pathway. I encouraged outreach with any difficulty. Of note, the patient's daughter was in the room with permission from the patient during consult and counseling. Seven minutes were spent in counseling regarding tobacco treatment today. MARIAMA Felix, KALIE Tobacco Treatment Department of Pulmonary and Critical Care Medicine [phone] KGO:nts J: [id number] / [id number] CC: MD Murray Hogue MD, <Primary Care Physician> THIS DOCUMENT WAS DICTATED AND AUTHENTICATED BY MARIAMA Felix, KALIE, ON 04/27/2014 11:25:50, AND FORWARDED TO THE ATTENDING PHYSICIAN FOR FINAL AUTHENTICATION. THIS DOCUMENT WAS ELECTRONICALLY AUTHENTICATED BY Jacky Monroe MD ON 04/28/2014 16:19:13 documented in this encounter Plan of Treatment Not on file documented as of this encounter Visit Diagnoses Not on filedocumented in this encounter Care Teams Web Page Developer Relationship Specialty Start Date End Date Murray Livingston PCP - General 07/11/14 documented as of this encounter
--- OUTSIDE RECORDS SUMMARY | 2025-07-13 12:14 | XMS_ITS | Encounter Summary ---
Author Organization [facility] Address [address] [place] [address] Care Team Providers Care Transcription Typist Name Role Phone Murray Livingston Primary Care Provider Encounter Details Date Type Department Care Team (Late st Contact Info) Description 03/29/2014 Clinical Conversion Encounter GENERAL CONVERSION Brijesh Gonsalez [...] as of this encounter Discharge Summaries * Brijesh Gonsalez MD - 10/27/2014 9:06 PM EST [id number],DIANA [place], [place]. DISCHARGE SUMMARY Name: DAYAMI POOL LC#: [id number] : 1965 Admit Date: 04/12/2014 Discharge Date: 04/14/2014 Visit ID: [id number] PRIMARY CARE PHYSICIAN: Murray Livingston MD DICTATING PHYSICIAN: Brijesh Gonsalez MD ATTENDING PHYSICIAN: Afshan Martins MD ANTICIPATED DISCHARGE DATE: 04/14/2014 REASON FOR ADMISSION: Stent-assisted coiling embolization of left internal carotid artery aneurysm. MEDICATIONS ON DISCHARGE: Aspirin 325 mg daily, clopidogrel 75 mg daily, clonazepam 1 mg at bedtime, ibuprofen 600 mg p.r.n. pain, levothyroxine 50 mcg daily, multivitamin 1 tab daily, Vivelle-Dot 0.1 mg transdermal patch biweekly. ALLERGIES: CIPRO, PENICILLIN AND SULFA DRUGS. CODE STATUS ON DISCHARGE: Full code. SOCIAL HISTORY: The patient lives in [place], [place] with her daughter and son. She is since May 2012 when her unexpectedly from sepsis. 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 She has a 01-qugt-zygo history of smoking, but recently quit. She is now smoking electronic cigarettes. The patient drinks alcohol socially. She denies history of drug abuse. PROCEDURE PERFORMED: Stent-assisted coiling embolization of left internal carotid artery aneurysm for re-treatment of previously coiled aneurysm. HOSPITAL COURSE: The patient is a 49-year-old right-handed female with previous medical history of diverticulosis, anxiety, migraine headaches, bilateral carpal tunnel syndrome, gastroesophageal reflux disease, found to have a large unruptured left internal carotid artery aneurysm at the level of the ophthalmic artery on neuroimaging from workup for vague nonspecific symptoms in 2005. The patient underwent coiling embolization of the aneurysm by Dr. Martins in 2005. On followup cerebral angiogram in November 2012, the aneurysm was noted to have recanalized compared to previous angiograms in 2007. The coil mesh had not changed in shape, which indicated that there was regrowth of the aneurysm itself. The patient underwent an attempted placement of Pipeline embolization device in 2012, but was unable to proceed with the procedure due to significant vasospasm intraoperatively. She returned in 2013 for a repeat treatment for the aneurysm. On preoperative H and P on 03/29/2014, she continued to complain of vague neurological symptoms such as intermittent issues of tripping and falling, chronic blurry vision in the left eye since 2005, speech problems such as mixing up her words, memory problems, right hand numbness and painful paresthesias in the medial and radial nerve distribution, bilateral lower extremity paresthesias and numbness. She was being worked up for Lyme disease, neurocognitive testing, EMG x2, MRI of the brain and cervical spine by other physicians. On 04/12/2014, the patient underwent a cerebral angiogram and attempted Pipeline device placement. The patient developed significant vasospasm prior to any catheterization of the internal carotid artery near the aneurysm. It was decided that the patient should receive Nitropress by the anesthesiologist for treatment of this vasospasm. There was some benefited in relieving some of the vasospasm and it was decided to treat the aneurysm with stent-assisted coiling. A stent was placed in the aneurysm parent artery and the aneurysm itself was retreated with coiling. The patient tolerated the procedure well with no complications. She was sent to the recovery room after the procedure, was placed on a heparin drip for 24 hours to prevent thromboembolic complications. She had no neurological deficits during her 48-hour hospital stay. She was then discharged home with followup appointments made for Interventional Neuroradiology in 3 weeks. PHYSICAL EXAMINATION ON DISCHARGE: General Appearance: No acute distress. Cardiovascular: S1, S2 positive, regular rate and rhythm positive, no murmurs. No carotid bruits. Pulmonary: Clear to auscultation bilaterally. Abdomen: Soft, nontender, nondistended. Groin: No signs of hematoma. Mental status: Alert and oriented x3. Speech was fluent. There was no dysarthria and no aphasia. Cranial nerves II-XII were intact. Motor exam 5/5 in the upper and lower extremities bilaterally. No drift. Sensory: Intact to touch in the upper and lower extremities bilaterally. Cerebellar: No dysmetria on aujtjy-sx-xtmr testing bilaterally. DISCHARGE INSTRUCTIONS FOR PATIENT: The patient was instructed not to lift heavy objects for 1 week or perform heavy exercise for 1 week. The patient was instructed not to take baths for 1 week, but was cleared for taking a shower. The patient will follow up in 3 weeks with interventional neuroradiology clinic. The patient was discharged to home. Discharge plan was discussed with patient, who verbalized understanding. Educational materials were provided. Thirty minutes were in discharge planning. Brijesh Gonsalez MD [phone] BSK:regina J: [id number] / [id number] CC: Murray Livingston MD, PCP1 THIS DOCUMENT WAS DICTATED AND AUTHENTICATED BY Brijesh Gonsalez MD, ON 04/20/2014 16:42:00, AND FORWARDED TO THE ATTENDING PHYSICIAN FOR FINAL AUTHENTICATION. THIS DOCUMENT WAS ELECTRONICALLY AUTHENTICATED BY Afshan Martins MD ON 05/05/2014 10:19:13 DAYAMI POOL 04/14/2014 # [id number] documented in this encounter Progress Notes * Brijesh Gonsalez MD - 10/27/2014 6:10 PM EST [id number],DIANA [facility] [place], [place]. Reason For Visit Preoperative H&P for embolization of cerebral aneurysm. History of Present Illness The patient is a 47-year-old right-handed woman who was [...] by Dr. Martins in May of 2006. On followup cerebral angiogram in November of 2012 the previously seen recanalized portion of the aneurysm was increased compared to previous angiogram in 2007, the coil mesh itself is unchanged, indicating regrowth of the aneurysm itself. This regrowth of the aneurysm was attempted to be treated using pipeline device placement but procedure was aborted due to due spasm of the blood vessel. Currently she continues to complain of multiple vague neurological issues such as tripping and falling, chronic blurry vision in the left eye since 2005, speech issues mixing up her words , memory problems, right hand numbness and painful paresthesias in the median/radial nerve distribution, and bilateral lower extremity paresthesias and numbness. A number of these issues have been worked up by other physicians with MRI brain, MRI cervical spine, EMG x2, Lyme disease testing, neurocognitive testing, cataract surgeries. Review of Systems As in history of present illness Active Problems Cerebral Artery Aneurysm 437.3 Hypothyroidism 244.9 Visit For: Pre-admission Testing V72.83 Left ICA aneurysm Past Medical History -Left internal carotid-ophthalmic artery [...] tunnel syndrome. -Gastroesophageal reflux disease. Surgical History Partial thyroidectomy for benign tumor. Family History There is no history of intracranial aneurysms or intracranial hemorrhage or stroke. Social History Current Some Day Smoker 305.1 The patient lives in [facility] with her daughter and son. She is a since May of 2012 when her unexpectedly from sepsis. 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 She has a 00-dmdk-ndhk history of smoking but recently quit. She is now currently smoking electronic cigarettes. She occasionally drinks alcohol. Denies drug abuse. Current Meds Aspirin EC 325 MG Oral Tablet Delayed Release; Take 1 tablet daily; Therapy: [id number] to (Evaluate:23Jul2014); Last Rx:[id number] Ordered; Rx By: BRIJESH GONSALEZ; Dispense: 30 Days ; #:90 Tablet Delayed Release; Refill: 3; Faxed To: [id number]; Msg to Pharmacy: Start 5 days prior to procedure. ClonazePAM 1 MG Oral Tablet; TAKE 1 TABLET AT BEDTIME; Therapy: (Recorded:22Dec2012) to Recorded; Dispense: 0 Days ; #: Sufficient Tablet; Refill: 0; Record; Last Updated By: Jaqui Chavez Clopidogrel Bisulfate 75 MG TABS; TAKE 1 TABLET DAILY, is starting 5 days before surgery; Therapy: [id number] to (Evaluate:24Dec2014) Recorded; Rx By: HAILEE FAJARDO; Dispense: 90 Days ; #:90 Tablet; Refill: 2; Record; Msg to Pharmacy: Start 5 days prior to procedure. Ibuprofen 600 MG Oral Tablet; TAKE 1 TABLET 3 TIMES DAILY NEEDED; Therapy: (Recorded:22Dec2012) to Recorded; Dispense: 0 Days ; #: Sufficient Tablet; Refill: 0; Record; Last Updated By: Jaqui Chavez Levothyroxine Sodium 50 MCG Oral Tablet; TAKE 1 TABLET DAILY DIRECTED; Therapy: [id number] to Recorded; Dispense: 0 Days ; #: Sufficient Tablet; Refill: 0; Record; Last Updated By: Kaykay Rush Multivitamins Oral Capsule; TAKE 1 CAPSULE DAILY; Therapy: [id number] to Recorded; Dispense: 0 Days ; #: Sufficient Capsule; Refill: 0; Record; Last Updated By: Kaykay Rush Vivelle-Dot 0.1 MG/24HR Transdermal Patch Biweekly; applies one every 3 days; Therapy: 52Ics0429 to Recorded; Rx By: HAILEE FAJARDO; Dispense: 0 Days ; #: Sufficient EA; Refill: 0; Record Allergies Ciprofloxacin HCl TABS Penicillins Sulfa Drugs Penicillin, ciprofloxacin, sulfa. Physical Exam Gen. appearance: Well-groomed, body habitus: Normal, no acute distress. Cardiovascular: S1/S2, regular rate and rhythm. No carotid bruits. Pulmonary: Clear to auscultation bilaterally. Abdomen: Soft, nontender, nondistended. Extremities: No pitting edema, full range of motion. Neurological: Mental status: Alert and oriented x3, speech-fluent, no dysarthria, naming/repetition/comprehension/calculation/fund of knowledge/short-term memory: Intact. Cranial nerves: Visual acuity testing: deferred, Visual garcia-intact, pupils equal round reactive and to light, extraocular eye movements-intact, no nystagmus, V1 to V3 intact to touch bilaterally, no facial weakness or asymmetry, hearing-normal, palate elevation-symmetric, tongue- midline, shoulder shrug- 5/5 bilaterally. Motor: 5/5 in the upper and lower extremities bilaterally proximally and distally. Normal bulk and tone. Sensation: Intact to touch, temperature, vibration in the upper and lower extremities bilaterally. Cerebellar: No dysmetria on finger to nose bilaterally, no dysdiadochokinesis. Gait: Normal base, stride, arm swing, turning. Deep tendon reflexes: Symmetric throughout at 2+. Results/Data MRA head with and without contrast: Focal recanalization of portion of left internal carotid artery ophthalmic aneurysm following coil embolization. Assessment 49-year-old female with left ophthalmic artery origin aneurysm status post coiling in 2005 with subsequent recanalization and attempted pipeline device placement last year, presents for retreatment of aneurysm. Plan Cerebral angiogram and pipeline device placement for embolization of left ICA aneurysm. Anti-spasmodic agents will be given during the procedure. If pipeline device cannot be placed then we will proceed to stent assisted calling embolization of aneurysm. Patient written for aspirin and Plavix daily, patient has been instructed to take these medications 5 days prior to procedure. Patient consented, risks and benefits explained. atient's sister present her H&P visit. Appointment Time Appointment time is approximately 35 minutes Signatures Brijesh Gonsalez M.D. Interventional Neuroradiology Fellow Department of Interventional Neuroradiology [facility] Electronically signed by : BRIJESH GONSALEZ, FELLOW; Mar 29 2014 4:03PM (Author) Electronically signed by : AFSHAN MARTINS MD; Jun 03 2014 11:32AM documented in this encounter Plan of Treatment Not on file documented as of this encounter Visit Diagnoses Not on filedocumented in this encounter Care Teams Transcription Typist Relationship Specialty Start Date End Date Murray Livingston PCP - General 07/11/14 documented as of this encounter
== END 2025-07-13 10:41 | disposition home or self-care (01) ==
LOC: HO.HSM 10:19
PROVIDERS: PCP Pediatrics; Visit Provider Psychiatry & Neurology Neurology
DX: G43.709 Chronic migraine without aura, not intractable, without status migrainosus (principal)
CPT/HCPCS: 99214

== ENCOUNTER → 2025-07-13 10:18 | Outpatient (BNVA) | payer MEDICARE, MEDICAID, SELFPAY | PROVIDERS: PCP Pediatrics; Visit Provider Psychiatry & Neurology Neurology | DX: G43.709 Chronic migraine without aura, not intractable, without status migrainosus (principal); M35.00 Sjogren syndrome, unspecified; G93.32 Myalgic encephalomyelitis/chronic fatigue syndrome; Z87.891 Personal history of nicotine dependence | CPT/HCPCS: 99212 ==